=== PATIENT | male | born 1995 | race Caucasian/White ===

== ENCOUNTER 2017-03-23 17:58 | Inpatient (IN) | payer OTHER ==
[2017-03-23 18:24] VITALS: BMI 29.0
--- NOTE | 2017-03-23 18:35 | HP ---
COWS - Scale Resting Pulse: 0= [place] 80 or Below Sweatin= Chills/Flushing Restless Observation: 3= Extraneous Movement Pupil Size: 0= Normal to Room Light Bone or Joint Aches: 2= Severe Diffuse Aches Runny Nose/ Eye Tearin= Runny Nose/Eyes GI Upset > 30mins: 2= Nausea/Diarrhea Tremor Observation: 2= Slight Tremor Visible Yawning Observation: 0= None Anxiety or Irritability: 2=Irritable/Anxious Goose Flesh Skin: 0=Smooth Skin COWS Score: 14 Admission ROS S - HPI Chief Complaint: withdrawal sx reported last detox [facility]21[facility]16-12/25/[facility] Allergies/Adverse Reactions: Allergies Allergy/AdvReac Type Severity Reaction Status Date / Time No Known Allergies Allergy Verified 12/22/15 17:27 History of Present Illness: 21 years old male with long history of heroin nicotine dependence denies medical issue has anxiety is admitted to detox Exam Limitations: No Limitations - Ebola screening Have you traveled outside of the country in the last 21 days: No Have you had contact with anyone from an Ebola affected area: No Have you been sick,other than usual withdrawal symptoms: No Do you have a fever: No - Review of Systems Constitutional: Chills, Changes in sleep, Weight Stable EENT: reports: Blurred Vision (wear eye glasses left at home) Respiratory: reports: No Symptoms reported Cardiac: reports: No Symptoms Reported GI: reports: Nausea, Poor Fluid Intake, Abdominal cramping : reports: No Symptoms Reported Musculoskeletal: reports: Back Pain, Joint Pain, Muscle Pain, Neck Pain Integumentary: reports: No Symptoms Reported Neuro: reports: Tremors Endocrine: reports: No Symptoms Reported Hematology: reports: No Symptoms Reported Psychiatric: reports: Judgement Intact, Orientated x3, Anxious Other Systems: Reviewed and Negative Patient History - Patient Medical History Hx Anemia: No Hx Asthma: No Hx Chronic Obstructive Pulmonary Disease (COPD): No Hx Cancer: No Hx Cardiac Disorders: No Hx Congestive Heart Failure: No Hx Hypertension: No Hx Hypercholesterolemia: No Hx Pacemaker: No HX Cerebrovascular Accident: No Hx Seizures: No Hx Dementia: No Hx Diabetes: No Hx Gastrointestinal Disorders: No Hx Liver Disease: No Hx Genitourinary Disorders: No Hx Sexually Transmitted Disorders: No Hx Renal Disease (ESRD): No Hx Thyroid Disease: No Hx Human Immunodeficiency Virus (HIV): No Hx Hepatitis C: No Hx Depression: Yes Hx Suicide Attempt: No Hx Bipolar Disorder: No Hx Schizophrenia: No - Patient Surgical History Past Surgical History: No - PPD History Previous Implant?: Yes Documented Results: Negative w/o proof Implanted On Prior [facility] Admission?: No PPD to be Administered?: Yes - Smoking Cessation Smoking history: Current every day smoker Have you smoked in the past 12 months: Yes Aproximately how many cigarettes per day: 10 Cigars Per Day: 0 Hx Chewing Tobacco Use: No Initiated information on smoking cessation: Yes 'Breaking Loose' booklet given: 03/23/17 - Substance & Tx. History Hx Alcohol Use: No Hx Substance Use: Yes Substance Use Type: Heroin Hx Substance Use Treatment: Yes (12/21-12/25/16 [facility]) - Substances Abused oxycodon Route: Oral Frequency: Daily Amount used: 4-5 bags Age of first use: 18 Date of Last Use: 03/22/17 Family Disease History - Family Disease History Family Disease History: Diabetes: Grandparent (HTN,THYROID), Heart Disease: Grandparent, [place]: Grandparent, Father (THROAT) Admission Physical Exam S - Vital Signs Vital Signs: Vital Signs - 24 hr 03/23/17 18:22 Temperature 99.2 F Pulse Rate 73 Respiratory 18 Rate Blood Pressure 127/76 - Physical General Appearance: Yes: Appropriately Dressed, Mild Distress, Tremorous, Irritable, Sweating, Anxious HEENTM: Yes: Hearing grossly Normal, Normal ENT Inspection, Normocephalic, Normal Voice Respiratory: Yes: Chest Non-Tender, Lungs Clear, Normal Breath Sounds, No Respiratory Distress, No Accessory Muscle Use Neck: Yes: Supple, Trachea in good position Breast: Yes: Breasts Symetrical Cardiology: Yes: Regular Rhythm, Regular Rate, S1, S2 Abdominal: Yes: Non Tender, Soft Genitourinary: Yes: Within Normal Limits Back: Yes: Normal Inspection Musculoskeletal: Yes: full range of Motion, Gait Steady, Back pain, Muscle Pain Extremities: Yes: Normal Inspection, Normal Range of Motion, Non-Tender, Tremors Neurological: Yes: Fully Oriented, Alert, Motor Strength 5/5, Normal Response, Depressed Affect Integumentary: Yes: Warm Lymphatic: Yes: Within Normal Limits - Diagnostic (1) Opioid dependence with withdrawal Current Visit: Yes Status: Acute (2) Nicotine dependence Current Visit: Yes Status: Acute Qualifiers: Nicotine product type: cigarettes Substance use status: in withdrawal Qualified Code(s): F17.213 - Nicotine dependence, cigarettes, with withdrawal (3) Anxiety Current Visit: Yes Status: Suspected Cleared for Admission [facility] - Detox or Rehab [facility] Level of Care: Medically Managed Detox Regimen/Protocol: Methadone [facility] Breath Alcohol Content Breath Alcohol Content: 0 Urine Drug Screen - Results Drug Screen Negative: No Urine Drug Screen Results: THC-Marijuana, OXY-Oxycodone
[2017-03-23] MEDS ORDERED: METHADONE HCL 10 MG TABLET (FOR DETOX USE ONLY) PO ONE ×2 (18:56→23:00)
[2017-03-23] MEDS ORDERED: MAG HYDROX/AL HYDROX/SIMETH 30 ML UNIT-DOSE CUP PO PRN (18:56)
[2017-03-23] MEDS ORDERED: LOPERAMIDE HCL 2 MG CAPSULE PO PRN (18:56)
[2017-03-23] MEDS ORDERED: MAGNESIUM CITRATE 300 ML BOTTLE PO PRN (18:56)
[2017-03-23] MEDS ORDERED: MENTHOL/PHENOL 1 EACH UD MM PRN (18:56)
[2017-03-23] MEDS ORDERED: MAGNESIUM HYDROX 2400MG/30ML ORAL SUSPENSION 30 ML CUP PO PRN (18:56)
[2017-03-23] MEDS ORDERED: ACETAMINOPHEN 325 MG TABLET (FP) PO PRN (18:56)
[2017-03-23] MEDS ORDERED: P-EPHED 60MG/TRIPROLIDI 2.5MG TABLET PO PRN (18:56)
[2017-03-23] MEDS ORDERED: IBUPROFEN 400 MG TABLET (FP) PO PRN (18:56)
[2017-03-23] MEDS ORDERED: guaiFENesin/D-METHORPHAN HB 10 ML UNIT-DOSE CUPS PO PRN (18:56)
[2017-03-23] MEDS: diazePAM 5 MG TABLET PO PRN (19:45)
[2017-03-23 21:57] LABS: URINE APPEARANCE CLEAR; URINE BILIRUBIN NEGATIVE (NEGATIVE); URINE BLOOD NEGATIVE (NEGATIVE); URINE COLOR STRAW; URINE GLUCOSE (UA) NEGATIVE (NEGATIVE); URINE KETONE NEGATIVE (NEGATIVE); URINE LEUK ESTERASE NEGATIVE (NEGATIVE); URINE NITRITE NEGATIVE (NEGATIVE); URINE PROTEIN NEGATIVE (NEGATIVE); URINE UROBILINOGEN NEGATIVE E.U./dl (0.2-1.0)
[2017-03-23] MEDS: THIAMINE HCL 100 MG TABLET (FP) PO SCH (22:17)
[2017-03-23] MEDS: diphenhydrAMINE HCL 50 MG CAPSULE PO PRN (22:19)
--- NOTE | 2017-03-24 09:55 | PN ---
BHS COWS - Scale Resting Pulse: 0= [place] 80 or Below Sweatin=Flushed/Facial Moisture Restless Observation: 1= Difficult to Sit Still Pupil Size: 0= Normal to Room Light Bone or Joint Aches: 2= Severe Diffuse Aches Runny Nose/ Eye Tearin= Runny Nose/Eyes GI Upset > 30mins: 2= Nausea/Diarrhea Tremor Observation of Outstretched Hands: 2= Slight Tremor Visible Yawning Observation: 0= None Anxiety or Irritability: 2=Irritable/Anxious Goose Flesh Skin: 3=Piloerection COWS Score: 16 BHS Progress Note (SOAP) Subjective: Interrupted sleep, Stomach cramping, Body Aches, Fatigue, Diarrhea, Sweating. Objective: PT. A & O X 3, OBSERVED AMBULATING ON UNIT. NO ACUTE DISTRESS. 03/24/17 09:53 Vital Signs Temperature 96.9 F L 03/24/17 09:03 Pulse Rate 65 03/24/17 09:03 Respiratory Rate 18 03/24/17 09:03 Blood Pressure 108/64 03/24/17 09:03 O2 Sat by Pulse Oximetry (%) Laboratory Tests 03/23/17 21:15 Urine Color Straw Urine Appearance Clear Urine pH 9.0 H D Urine Protein Negative Urine Glucose (UA) Negative Urine Ketones Negative Urine Blood Negative Urine Nitrite Negative Urine Bilirubin Negative Urine Urobilinogen Negative Ur Leukocyte Esterase Negative UA RESULTS NOTED. OTHER LAB RESULTS PENDING. Assessment: 03/24/17 09:54 WITHDRAWAL SYMPTOMS. Plan: CONTINUE DETOX.
[2017-03-24] MEDS ORDERED: METHADONE HCL 10 MG TABLET (FOR DETOX USE ONLY) PO ONE (10:00)
[2017-03-24 10:02] LABS: MCH 29.4 pg (25.7-33.7); MCHC 33.9 g/dl (32.0-35.9); MEAN CELL VOLUME 86.8 fl (80-96); MEAN PLT VOLUME 8.2 fl (7.5-11.1); PLATELET COUNT 220 K/MM3 (134-434); RDW 13.2 % (11.9-15.9)
[2017-03-24 10:09] LABS: ALBUMIN 3.6 g/dl (3.4-5.0); ANION GAP 6 (8-16); BILIRUBIN,TOTAL 0.3 mg/dL (0.2-1.0); CALCIUM 9.2 mg/dL (8.5-10.1); CO2 30 mmol/L (21-32); CREATININE 0.8 mg/dL (0.7-1.3); GLUCOSE,RANDOM 99 mg/dL (74-106); SGOT/AST 11 U/L (15-37); SGPT/ALT 16 U/L (12-78); TOT PROT 6.6 g/dl (6.4-8.2)
[2017-03-24] MEDS: NICOTINE 14 MG/24 HOURS TOPICAL PATCH TD SCH (10:09)
[2017-03-24 10:10] LABS: ALK PHOS 69 U/L (45-117)
[2017-03-24] MEDS: PRENATAL VITAMINS W/ FOLIC ACID TABLET (FP) PO SCH (10:10)
[2017-03-24] MEDS: diazePAM 5 MG TABLET PO PRN ×3 (10:14→22:15)
--- NOTE | 2017-03-24 12:55 | CONSULT ---
[facility] Psychiatric Consult - Data Date of interview: 03/24/17 Admission source: [facility] Identifying data: Readmission to [facility] for this 21 y/o male seeking detoxification treatment for cannabis,opiate and benzodiazepine dependence (xanax).Patient is single without children,domiciled (lives with his mother),currently unemployed and supported by relatives. Substance Abuse History: Patient reports chronic use of oxycodone up to 60 mg/ day (purchased in the streets).Last use was on 03/22/17.Onset of abuse at age 18.He aknowledged starting the use of marijuana at age 16 (sporadically).Last use was in December 2016.Xanax abuse is reported to having been initiated at age 18 (15 dollars/day).Last use was " a while back ".Mr Orosco reports inconsistent use of alcohol (drinks beer at parties).Most recent use :03/17/17.Previously known to [facility].No history of rehabilitation care. Medical History: Benign.Patient reports good general health. Psychiatric History: Patient denies. Physical/Sexual Abuse/Trauma History: Patient denies. Additional Comment: Urine Drug Screen Results: positive for marijuana and oxycodone. Mental Status Exam - Mental Status Exam Alert and Oriented to: Time, Place, Person Cognitive Function: Good Patient Appearance: Well Groomed (overweight) Mood: Anxious, Apprehensive Affect: Normal Range Patient Behavior: Fatigued, Cooperative Speech Pattern: Clear Voice Loudness: Normal Thought Process: Intact, Goal Oriented Thought Disorder: Not Present Hallucinations: Denies Suicidal Ideation: Denies Homicidal Ideation: Denies Insight/Judgement: Fair Sleep: Fair Appetite: Good Muscle strength/Tone: Normal Gait/Station: Normal Psychiatric Findings - Problem List (Melvin 1, 2,3) (1) Opioid dependence with withdrawal Current Visit: Yes Status: Acute (2) Sedative, hypnotic or anxiolytic dependence with withdrawal, uncomplicated Current Visit: Yes Status: Acute (3) Nicotine dependence Current Visit: Yes Status: Acute Qualifiers: Nicotine product type: cigarettes Substance use status: in withdrawal Qualified Code(s): F17.213 - Nicotine dependence, cigarettes, with withdrawal (4) Drug-induced mood disorder Current Visit: Yes Status: Suspected - Initial Treatment Plan Initial Treatment Plan: Psychoeducation is provided in this session.Previous records revisited.[facility] report read and appreciated.Support given.Will monitor progress.
--- NOTE | 2017-03-24 17:17 | EKG ---
Test Reason : Blood Pressure : / mmHG Vent. Rate : 066 BPM Atrial Rate : 066 BPM P-R Int : 154 ms QRS Dur : 102 ms QT Int : 408 ms P-R-T Axes : 044 053 038 degrees QTc Int : 427 ms NORMAL SINUS RHYTHM WITH SINUS ARRHYTHMIA POSSIBLE LEFT ATRIAL ENLARGEMENT BORDERLINE ECG NO PREVIOUS ECGS AVAILABLE Confirmed by JULIAN ODELL MD ([id number]) on 03/24/2017 5:16:54 PM Referred By: Confirmed By:JULIAN ODELL MD
--- NOTE | 2017-03-24 17:17 | EKG ---
Test Reason : Blood Pressure : / mmHG Vent. Rate : 051 BPM Atrial Rate : 051 BPM P-R Int : 156 ms QRS Dur : 096 ms QT Int : 422 ms P-R-T Axes : 045 061 030 degrees QTc Int : 388 ms SINUS BRADYCARDIA WITH SINUS ARRHYTHMIA OTHERWISE NORMAL ECG WHEN COMPARED WITH ECG OF 23-MAR-2017 18:52, NO SIGNIFICANT CHANGE WAS FOUND Confirmed by JULIAN ODELL MD ([id number]) on 03/24/2017 5:16:40 PM Referred By: Confirmed By:JULIAN ODELL MD
[2017-03-24] MEDS: NICOTINE POLACRILEX 2 MG GUM BUC PRN (18:15)
[2017-03-24] MEDS: THIAMINE HCL 100 MG TABLET (FP) PO SCH (22:15)
[2017-03-24] MEDS: diphenhydrAMINE HCL 50 MG CAPSULE PO PRN (22:15)
[2017-03-25] MEDS ORDERED: METHADONE HCL 5 MG TABLET (FOR DETOX USE ONLY) PO ONE (10:00)
[2017-03-25] MEDS: NICOTINE 14 MG/24 HOURS TOPICAL PATCH TD SCH (10:10)
[2017-03-25] MEDS: PRENATAL VITAMINS W/ FOLIC ACID TABLET (FP) PO SCH (10:10)
--- NOTE | 2017-03-25 10:54 | PN ---
S COWS - Scale Resting Pulse: 0= [place] 80 or Below Sweatin=Flushed/Facial Moisture Restless Observation: 0= Sits Still Pupil Size: 0= Normal to Room Light Bone or Joint Aches: 2= Severe Diffuse Aches Runny Nose/ Eye Tearin= Nasal Congestion GI Upset > 30mins: 1= Stomach Cramp Tremor Observation of Outstretched Hands: 2= Slight Tremor Visible Yawning Observation: 2= >3x During Session Anxiety or Irritability: 2=Irritable/Anxious Goose Flesh Skin: 0=Smooth Skin COWS Score: 12 S Progress Note (SOAP) Subjective: Sweating, Fatigue, Interrupted sleep, Lower Back Ache. Objective: PT. A & O X 3, OBSERVED AMBULATING ON UNIT. NO ACUTE DISTRESS. PT. DENIES CHEST PAIN, DIZZINESS, AND SOB. 03/25/17 10:52 Vital Signs Temperature 97.0 F L 03/25/17 09:06 Pulse Rate 50 L 03/25/17 09:06 Respiratory Rate 18 03/25/17 09:06 Blood Pressure 103/61 03/25/17 09:06 O2 Sat by Pulse Oximetry (%) Laboratory Tests 03/23/17 03/24/17 03/24/17 21:15 06:30 06:30 WBC 7.0 RBC 4.88 Hgb 14.3 Hct 42.3 MCV 86.8 MCH 29.4 MCHC 33.9 RDW 13.2 Plt Count 220 MPV 8.2 Sodium 143 Potassium 4.4 Chloride 107 Carbon Dioxide 30 Anion Gap 6 L BUN 12 Creatinine 0.8 Creat Clearance w eGFR > 60 Random Glucose 99 Calcium 9.2 Total Bilirubin 0.3 D AST 11 L ALT 16 D Alkaline Phosphatase 69 Total Protein 6.6 Albumin 3.6 Urine Color Straw Urine Appearance Clear Urine pH 9.0 H D Ur Specific [place] 1.020 Urine Protein Negative Urine Glucose (UA) Negative Urine Ketones Negative Urine Blood Negative Urine Nitrite Negative Urine Bilirubin Negative Urine Urobilinogen Negative Ur Leukocyte Esterase Negative RPR Titer 03/24/17 06:30 WBC RBC Hgb Hct MCV MCH MCHC RDW Plt Count MPV Sodium Potassium Chloride Carbon Dioxide Anion Gap BUN Creatinine Creat Clearance w eGFR Random Glucose Calcium Total Bilirubin AST ALT Alkaline Phosphatase Total Protein Albumin Urine Color Urine Appearance Urine pH Ur Specific [place] Urine Protein Urine Glucose (UA) Urine Ketones Urine Blood Urine Nitrite Urine Bilirubin Urine Urobilinogen Ur Leukocyte Esterase RPR Titer Nonreactive LABS NOTED. Assessment: 03/25/17 10:53 WITHDRAWAL SYMPTOMS. Plan: CONTINUE DETOX.
[2017-03-25] MEDS: NICOTINE POLACRILEX 2 MG GUM BUC PRN ×2 (15:01→19:28)
[2017-03-25] MEDS: diazePAM 5 MG TABLET PO PRN ×2 (15:01→22:09)
[2017-03-25] MEDS: THIAMINE HCL 100 MG TABLET (FP) PO SCH (22:09)
[2017-03-25] MEDS: diphenhydrAMINE HCL 50 MG CAPSULE PO PRN (22:09)
[2017-03-26] MEDS ORDERED: METHADONE HCL 5 MG TABLET (FOR DETOX USE ONLY) PO ONE (10:00)
[2017-03-26] MEDS: PRENATAL VITAMINS W/ FOLIC ACID TABLET (FP) PO SCH (10:24)
[2017-03-26] MEDS: diazePAM 5 MG TABLET PO PRN ×3 (10:24→18:45)
[2017-03-26] MEDS: NICOTINE 14 MG/24 HOURS TOPICAL PATCH TD SCH (10:25)
--- NOTE | 2017-03-26 11:51 | PN ---
BHS Progress Note (SOAP) Subjective: Tremors, Diarrhea, Anxious, Sweating, Stomach Cramping, Interrupted sleep. Objective: PT. A & O X 3, OBSERVED AMBULATING ON UNIT. NO ACUTE DISTRESS. 03/26/17 11:50 Vital Signs Temperature 96.7 F L 03/26/17 09:43 Pulse Rate 70 03/26/17 09:43 Respiratory Rate 18 03/26/17 09:43 Blood Pressure 104/61 03/26/17 09:43 O2 Sat by Pulse Oximetry (%) Laboratory Tests 03/23/17 03/24/17 03/24/17 21:15 06:30 06:30 WBC 7.0 RBC 4.88 Hgb 14.3 Hct 42.3 MCV 86.8 MCH 29.4 MCHC 33.9 RDW 13.2 Plt Count 220 MPV 8.2 Sodium 143 Potassium 4.4 Chloride 107 Carbon Dioxide 30 Anion Gap 6 L BUN 12 Creatinine 0.8 Creat Clearance w eGFR > 60 Random Glucose 99 Calcium 9.2 Total Bilirubin 0.3 D AST 11 L ALT 16 D Alkaline Phosphatase 69 Total Protein 6.6 Albumin 3.6 Urine Color Straw Urine Appearance Clear Urine pH 9.0 H D Ur Specific [place] 1.020 Urine Protein Negative Urine Glucose (UA) Negative Urine Ketones Negative Urine Blood Negative Urine Nitrite Negative Urine Bilirubin Negative Urine Urobilinogen Negative Ur Leukocyte Esterase Negative RPR Titer 03/24/17 06:30 WBC RBC Hgb Hct MCV MCH MCHC RDW Plt Count MPV Sodium Potassium Chloride Carbon Dioxide Anion Gap BUN Creatinine Creat Clearance w eGFR Random Glucose Calcium Total Bilirubin AST ALT Alkaline Phosphatase Total Protein Albumin Urine Color Urine Appearance Urine pH Ur Specific [place] Urine Protein Urine Glucose (UA) Urine Ketones Urine Blood Urine Nitrite Urine Bilirubin Urine Urobilinogen Ur Leukocyte Esterase RPR Titer Nonreactive LABS NOTED. Assessment: 03/26/17 11:50 WITHDRAWAL SYMPTOMS. Plan: CONTINUE DETOX.
[2017-03-26] MEDS: THIAMINE HCL 100 MG TABLET (FP) PO SCH (22:14)
[2017-03-26] MEDS: diphenhydrAMINE HCL 50 MG CAPSULE PO PRN (22:15)
[2017-03-27] MEDS ORDERED: METHADONE HCL 10 MG TABLET (FOR DETOX USE ONLY) PO ONE (10:00)
[2017-03-27] MEDS: PRENATAL VITAMINS W/ FOLIC ACID TABLET (FP) PO SCH (10:14)
[2017-03-27] MEDS: NICOTINE 14 MG/24 HOURS TOPICAL PATCH TD SCH (10:15)
--- NOTE | 2017-03-27 11:01 | PN ---
BHS Progress Note (SOAP) Subjective: Interrupted Sleep, Fatigue, Anxious, Sweating. Objective: PT. A & O X 3. NO ACUTE DISTRESS. 03/27/17 11:00 Vital Signs Temperature 97.4 F L 03/27/17 10:29 Pulse Rate 76 03/27/17 10:29 Respiratory Rate 18 03/27/17 10:29 Blood Pressure 105/60 03/27/17 10:29 O2 Sat by Pulse Oximetry (%) Laboratory Tests 03/23/17 03/24/17 03/24/17 21:15 06:30 06:30 WBC 7.0 RBC 4.88 Hgb 14.3 Hct 42.3 MCV 86.8 MCH 29.4 MCHC 33.9 RDW 13.2 Plt Count 220 MPV 8.2 Sodium 143 Potassium 4.4 Chloride 107 Carbon Dioxide 30 Anion Gap 6 L BUN 12 Creatinine 0.8 Creat Clearance w eGFR > 60 Random Glucose 99 Calcium 9.2 Total Bilirubin 0.3 D AST 11 L ALT 16 D Alkaline Phosphatase 69 Total Protein 6.6 Albumin 3.6 Urine Color Straw Urine Appearance Clear Urine pH 9.0 H D Ur Specific [place] 1.020 Urine Protein Negative Urine Glucose (UA) Negative Urine Ketones Negative Urine Blood Negative Urine Nitrite Negative Urine Bilirubin Negative Urine Urobilinogen Negative Ur Leukocyte Esterase Negative RPR Titer 03/24/17 06:30 WBC RBC Hgb Hct MCV MCH MCHC RDW Plt Count MPV Sodium Potassium Chloride Carbon Dioxide Anion Gap BUN Creatinine Creat Clearance w eGFR Random Glucose Calcium Total Bilirubin AST ALT Alkaline Phosphatase Total Protein Albumin Urine Color Urine Appearance Urine pH Ur Specific [place] Urine Protein Urine Glucose (UA) Urine Ketones Urine Blood Urine Nitrite Urine Bilirubin Urine Urobilinogen Ur Leukocyte Esterase RPR Titer Nonreactive LABS NOTED. Assessment: 03/27/17 11:00 WITHDRAWAL SYMPTOMS. Plan: CONTINUE DETOX.
[2017-03-27] MEDS: THIAMINE HCL 100 MG TABLET (FP) PO SCH (22:18)
[2017-03-27] MEDS: diphenhydrAMINE HCL 50 MG CAPSULE PO PRN (22:18)
[2017-03-27] MEDS: NICOTINE POLACRILEX 2 MG GUM BUC PRN (22:21)
[2017-03-28] MEDS ORDERED: METHADONE HCL 5 MG TABLET (FOR DETOX USE ONLY) PO ONE (06:00)
[2017-03-28 06:28] VITALS: TEMP 97.5
[2017-03-28 09:15] VITALS: BP 124/63; PULSE 81
--- NOTE | 2017-03-28 11:42 | DS ---
[facility] Detox Discharge Summary Admission Date: 03/23/17 Discharge Date: 03/28/17 - History Present History: Opioid Dependence Additional Comments: PATIENT TO GO HOME AT THIS TIME AND WILL RETURN ON 03/30/2017 FOR ADMISSION TO [facility]. Pertinent Past History: Depression / Anxiety. - Physical Exam Results Vital Signs: Vital Signs Temperature 97.5 F L 03/28/17 09:15 Pulse Rate 81 03/28/17 09:15 Respiratory Rate 18 03/28/17 09:15 Blood Pressure 124/63 03/28/17 09:15 O2 Sat by Pulse Oximetry (%) Pertinent Admission Physical Exam Findings: WITHDRAWAL SYMPTOMS. Laboratory Tests 03/23/17 03/24/17 03/24/17 21:15 06:30 06:30 WBC 7.0 RBC 4.88 Hgb 14.3 Hct 42.3 MCV 86.8 MCH 29.4 MCHC 33.9 RDW 13.2 Plt Count 220 MPV 8.2 Sodium 143 Potassium 4.4 Chloride 107 Carbon Dioxide 30 Anion Gap 6 L BUN 12 Creatinine 0.8 Creat Clearance w eGFR > 60 Random Glucose 99 Calcium 9.2 Total Bilirubin 0.3 D AST 11 L ALT 16 D Alkaline Phosphatase 69 Total Protein 6.6 Albumin 3.6 Urine Color Straw Urine Appearance Clear Urine pH 9.0 H D Ur Specific [place] 1.020 Urine Protein Negative Urine Glucose (UA) Negative Urine Ketones Negative Urine Blood Negative Urine Nitrite Negative Urine Bilirubin Negative Urine Urobilinogen Negative Ur Leukocyte Esterase Negative RPR Titer 03/24/17 06:30 WBC RBC Hgb Hct MCV MCH MCHC RDW Plt Count MPV Sodium Potassium Chloride Carbon Dioxide Anion Gap BUN Creatinine Creat Clearance w eGFR Random Glucose Calcium Total Bilirubin AST ALT Alkaline Phosphatase Total Protein Albumin Urine Color Urine Appearance Urine pH Ur Specific [place] Urine Protein Urine Glucose (UA) Urine Ketones Urine Blood Urine Nitrite Urine Bilirubin Urine Urobilinogen Ur Leukocyte Esterase RPR Titer Nonreactive LABS NOTED. - Treatment Hospital Course: Detox Protocol Followed, Detoxed Safely, Responded well, Discharged Condition Good, Rehab Referral Accepted Patient has Accepted a Rehab Referral to: YES - [facility]. SEE COMMENTS SECTION ABOVE. - Medication Discharge Medications: Ambulatory Orders NK [No Known Home Medication] 12/22/15 - Diagnosis (1) Nicotine dependence Status: Chronic Qualifiers: Nicotine product type: cigarettes Substance use status: uncomplicated Qualified Code(s): F17.210 - Nicotine dependence, cigarettes, uncomplicated (2) Opioid dependence with withdrawal Status: Acute (3) Anxiety Status: Suspected (4) Sedative, hypnotic or anxiolytic dependence with withdrawal, uncomplicated Status: Acute (5) Drug-induced mood disorder Status: Suspected - AMA Did Patient Leave Against Medical Advice: No
== END 2017-03-28 09:14 | disposition home or self-care (01) | DRG 773 ==
LOC: YASAS 17:58 → Y3N 18:54
PROVIDERS: ADMIT Internal Medicine; ATTEND Internal Medicine
PROC: HZ2ZZZZ Detoxification Services for Substance Abuse Treatment (ICD-10-PCS; principal; 2017-03-28)
DX: F11.23 Opioid dependence with withdrawal (principal); F13.230 Sedative, hypnotic or anxiolytic dependence with withdrawal, uncomplicated; F17.210 Nicotine dependence, cigarettes, uncomplicated; F19.24 Other psychoactive substance dependence with psychoactive substance-induced mood disorder; F41.9 Anxiety disorder, unspecified
CPT/HCPCS: 36415; 80053; 81003; 85027; 86593; 93005; 93010

== ENCOUNTER 2017-03-30 11:05 | Inpatient (IN) | payer OTHER ==
[2017-03-30 12:49] VITALS: BMI 29.5
--- NOTE | 2017-03-30 16:42 | HP ---
Admission [facility] Chief Complaint: REHAB TX FOR OPIOID DEPENDENCE Allergies/Adverse Reactions: Allergies Allergy/AdvReac Type Severity Reaction Status Date / Time No Known Allergies Allergy Verified 03/30/17 16:22 History of Present Illness: 21 Y/O MALE WITH A HX OF OXYCODONE DEPENDENCE SEEKING DETOX [place] Exam Limitations: No Limitations - Ebola screening Have you traveled outside of the country in the last 21 days: No Have you had contact with anyone from an Ebola affected area: No Have you been sick,other than usual withdrawal symptoms: No - Review of Systems Constitutional: Chills, Loss of Appetite, Night Sweats, Changes in sleep EENT: reports: Nose Congestion, Dental Problems (CAVITITIES IN THE PAST) Respiratory: reports: No Symptoms reported Cardiac: reports: Lightheadedness GI: reports: Constipated (X 2 DAYS), Diarrhea, Nausea, Poor Appetite, Poor Fluid Intake, Vomiting, Abdominal cramping : reports: No Symptoms Reported Musculoskeletal: reports: Back Pain, Joint Pain, Muscle Pain Integumentary: reports: No Symptoms Reported Neuro: reports: Headache, Numbness, Tingling, Tremors (DUE TO ANXIETY) Endocrine: reports: No Symptoms Reported Hematology: reports: No Symptoms Reported Psychiatric: reports: Orientated x3, Anxious Other Systems: Reviewed and Negative Patient History - Patient Medical History Hx Anemia: No Hx Asthma: No Hx Chronic Obstructive Pulmonary Disease (COPD): No Hx Cancer: No Hx Cardiac Disorders: No Hx Congestive Heart Failure: No Hx Hypertension: No Hx Hypercholesterolemia: No Hx Pacemaker: No HX Cerebrovascular Accident: No Hx Seizures: No Hx Dementia: No Hx Diabetes: No Hx Gastrointestinal Disorders: No Hx Liver Disease: No Hx Genitourinary Disorders: No Hx Sexually Transmitted Disorders: No (NEGATIVE HX) Hx Renal Disease (ESRD): No Hx Thyroid Disease: No Hx Human Immunodeficiency Virus (HIV): No (NEGATIVE HX) Hx Hepatitis C: No (NEGATIVE) Hx Depression: No Hx Suicide Attempt: No (DENIES) Hx Bipolar Disorder: No Hx Schizophrenia: No - Patient Surgical History Past Surgical History: No Hx Neurologic Surgery: No Hx Cataract Extraction: No Hx Cardiac Surgery: No Hx Lung Surgery: No Hx Breast Surgery: No Hx Breast Biopsy: No Hx Abdominal Surgery: No Hx Appendectomy: No Hx Cholecystectomy: No Hx Genitourinary Surgery: No Hx Orthopedic Surgery: No Anesthesia Reaction: No - PPD History Previous Implant?: Yes Documented Results: Negative w/proof Implanted On Prior [facility] Admission?: Yes Date: 03/25/17 Results: 0 MM - Smoking Cessation Smoking history: Current every day smoker Have you smoked in the past 12 months: Yes Aproximately how many cigarettes per day: 10 Cigars Per Day: 0 Hx Chewing Tobacco Use: No Initiated information on smoking cessation: Yes 'Breaking Loose' booklet given: 03/30/17 - Substances Abused OXYCODONE Route: Oral Frequency: Daily Amount used: 4- 30 MG PILLS Age of first use: 17 Date of Last Use: 04/01/17 Family Disease History - Family Disease History Family Disease History: Diabetes: Grandparent (HTN,THYROID), Heart Disease: Grandparent, [place]: Grandparent, Father (THROAT) Admission Physical Exam [facility] - Vital Signs Vital Signs: Vital Signs - 24 hr 03/30/17 12:46 Temperature 98.6 F Pulse Rate 110 H Respiratory 18 Rate Blood Pressure 125/86 - Physical General Appearance: Yes: No Apparent Distress, Anxious HEENTM: Yes: EOMI, Normocephalic, BRANDIE, Pharynx Normal Respiratory: Yes: Chest Non-Tender, Lungs Clear, Normal Breath Sounds, No Respiratory Distress Neck: Yes: Supple, Trachea in good position Breast: Yes: Breast Exam Deferred Cardiology: Yes: Regular Rhythm, Regular Rate, S1, S2 Abdominal: Yes: Normal Bowel Sounds, Non Tender, Soft Genitourinary: Yes: Other (N/C) Back: Yes: Within Normal Limits Musculoskeletal: Yes: full range of Motion, Gait Steady Extremities: Yes: Normal Range of Motion, Non-Tender Neurological: Yes: marketing operations coordinator II-XII NML intact, Fully Oriented, Alert, Motor Strength 5/5 Integumentary: Yes: Dry, Warm Lymphatic: Yes: Within Normal Limits - Diagnostic (1) Opioid dependence with withdrawal Status: Chronic (2) Nicotine dependence Status: Chronic Qualifiers: Nicotine product type: cigarettes Substance use status: uncomplicated Qualified Code(s): F17.210 - Nicotine dependence, cigarettes, uncomplicated Cleared for Admission [facility] - Detox or Rehab Claeared for Rehab Admission: Yes [facility] Breath Alcohol Content Breath Alcohol Content: 0 Urine Drug Screen - Results Drug Screen Negative: No Urine Drug Screen Results: BZO-Benzodiazepines, MTD-Methadone
[2017-03-30] MEDS ORDERED: MAGNESIUM CITRATE 300 ML BOTTLE PO PRN (20:22)
[2017-03-30] MEDS ORDERED: guaiFENesin/D-METHORPHAN HB 10 ML UNIT-DOSE CUPS PO PRN (20:22)
[2017-03-30] MEDS ORDERED: LOPERAMIDE HCL 2 MG CAPSULE PO PRN (20:22)
[2017-03-30] MEDS ORDERED: MAG HYDROX/AL HYDROX/SIMETH 30 ML UNIT-DOSE CUP PO PRN (20:22)
[2017-03-30] MEDS ORDERED: MENTHOL/PHENOL 1 EACH UD MM PRN (20:22)
[2017-03-30] MEDS ORDERED: NICOTINE 21 MG/24 HOURS TOPICAL PATCH TD PRN (20:22)
[2017-03-30] MEDS ORDERED: P-EPHED 60MG/TRIPROLIDI 2.5MG TABLET PO PRN (20:22)
[2017-03-30] MEDS ORDERED: ACETAMINOPHEN 325 MG TABLET (FP) PO PRN (20:22)
[2017-03-30] MEDS ORDERED: MAGNESIUM HYDROX 2400MG/30ML ORAL SUSPENSION 30 ML CUP PO PRN (20:22)
[2017-03-30] MEDS ORDERED: NICOTINE POLACRILEX 4 MG GUM BUC PRN (20:22)
[2017-03-30] MEDS: IBUPROFEN 400 MG TABLET (FP) PO PRN (20:48)
[2017-03-30] MEDS: CYCLOBENZAPRINE HCL 10 MG TABLET (FP) PO PRN (20:48)
[2017-03-30] MEDS: hydrOXYzine PAMOATE 50 MG CAPSULE (FP) PO PRN (20:48)
[2017-03-30] MEDS: THIAMINE HCL 100 MG TABLET (FP) PO SCH (21:31)
[2017-03-31] MEDS: PRENATAL VITAMINS W/ FOLIC ACID TABLET (FP) PO SCH (09:39)
[2017-03-31] MEDS: CYCLOBENZAPRINE HCL 10 MG TABLET (FP) PO PRN (09:40)
[2017-03-31] MEDS: IBUPROFEN 400 MG TABLET (FP) PO PRN (09:40)
--- NOTE | 2017-03-31 10:49 | HP ---
Psychiatrist Admission - Data Date of interview: 03/31/17 Admission source: 3N Identifying data: THis is the first N inpatient rehabilitation admission to for this 21 year old male who is single unemployed and domiciled, residing with his mother in [place]. Medical History: Reports good phsyical health. Smokes cigarettes 1 PPD. Psychiatric History: Reports no psychiatric treatment, seeen by while in detox, however reports he has been feeling very anxious and having panic attacks, with SOB, palpitations and flashing, unable to sleep and having body aches. States he takes xanax to relieve his anxiety. Physical/Sexual Abuse/Trauma History: Patient denies history of sexual, physical and verbal abuse. Additional Comment: HS graduate, 1,5 years in college. Vital Signs: Vital Signs - 24 hr 03/30/17 03/30/17 03/31/17 12:46 18:30 00:30 Temperature 98.6 F 98.7 F Pulse Rate 110 H 96 H Respiratory 18 18 16 Rate Blood Pressure 125/86 118/72 03/31/17 03/31/17 03:30 06:47 Temperature 98.7 F Pulse Rate 82 Respiratory 16 18 Rate Blood Pressure 109/81 Allergies/Adverse Reactions: Allergies Allergy/AdvReac Type Severity Reaction Status Date / Time No Known Allergies Allergy Verified 03/30/17 16:22 Date of last physical exam: 03/24/17 Concur with the findings of this exam: Yes - Substance Abuse/Tx History Hx Alcohol Use: No Substance Use Type: Marijuana (once a week), Opiates (oxycodone 30 mg 4-8 a day , for the past 4 years), Tranquilizers (xanax 2-3 times a week) Hx Substance Use Treatment: Yes (detox x 2) - Admission Criteria Previous failed treatment: Yes Poor recovery environment: Yes Comorbidities: Yes Lacks judgement: Yes Mental Status Exam - Mental Status Exam Alert and Oriented to: Time, Place, Person Cognitive Function: Good Patient Appearance: Well Groomed Mood: Anxious Affect: Appropriate, Mood Congruent Patient Behavior: Appropriate, Cooperative Speech Pattern: Clear, Appropriate Voice Loudness: Normal Thought Process: Intact Thought Disorder: Not Present Hallucinations: Denies Suicidal Ideation: Denies Homicidal Ideation: Denies Insight/Judgement: Fair Sleep: Poorly, Difficulty falling asleep Appetite: Fair Muscle strength/Tone: Normal Gait/Station: Normal Psychiatric Findings - Problem List ([place] 1, 2,3) (1) Nicotine dependence Current Visit: Yes Status: Chronic Qualifiers: Nicotine product type: cigarettes Substance use status: uncomplicated Qualified Code(s): F17.210 - Nicotine dependence, cigarettes, uncomplicated (2) Opioid dependence Current Visit: Yes Status: Acute (3) FELIPE (generalized anxiety disorder) Current Visit: Yes Status: Acute (4) Opioid-induced sleep disorder Current Visit: Yes Status: Acute (5) Sedative hypnotic or anxiolytic dependence Current Visit: Yes Status: Acute - Initial Treatment Plan Initial Treatment Plan: Discussed indications/properties of Gabapentin 100 mg po tid and Remeron 15 mg po hs with the patient, he agreed to start treatment, will add meds and monitor progress/response.
[2017-03-31] MEDS: GABAPENTIN 100 MG CAPSULE (FP) PO SCH ×2 (14:13→21:56)
--- NOTE | 2017-03-31 17:06 | EKG ---
Test Reason : Blood Pressure : / mmHG Vent. Rate : 078 BPM Atrial Rate : 078 BPM P-R Int : 156 ms QRS Dur : 096 ms QT Int : 358 ms P-R-T Axes : 062 065 045 degrees QTc Int : 408 ms NORMAL SINUS RHYTHM WITH SINUS ARRHYTHMIA EARLY REPOLARIZATION NORMAL ECG WHEN COMPARED WITH ECG OF 24-MAR-2017 08:09, VENT. RATE HAS INCREASED BY 27 BPM Confirmed by JULIAN ODELL MD ([id number]) on 03/31/2017 5:06:42 PM Referred By: Confirmed By:JULIAN ODELL MD
[2017-03-31] MEDS: hydrOXYzine PAMOATE 50 MG CAPSULE (FP) PO PRN (20:05)
[2017-03-31] MEDS: THIAMINE HCL 100 MG TABLET (FP) PO SCH (21:56)
[2017-03-31] MEDS: MIRTAZAPINE 15 MG TABLET (FP) PO SCH (21:56)
[2017-04-01] MEDS: GABAPENTIN 100 MG CAPSULE (FP) PO SCH ×3 (06:17→21:36)
[2017-04-01] MEDS: hydrOXYzine PAMOATE 50 MG CAPSULE (FP) PO PRN ×2 (09:50→21:37)
[2017-04-01] MEDS: PRENATAL VITAMINS W/ FOLIC ACID TABLET (FP) PO SCH (09:50)
[2017-04-01] MEDS: CYCLOBENZAPRINE HCL 10 MG TABLET (FP) PO PRN ×2 (14:21→21:37)
[2017-04-01 17:36] LABS: URINE APPEARANCE CLEAR; URINE BILIRUBIN NEGATIVE (NEGATIVE); URINE BLOOD NEGATIVE (NEGATIVE); URINE COLOR STRAW; URINE GLUCOSE (UA) NEGATIVE (NEGATIVE); URINE KETONE NEGATIVE (NEGATIVE); URINE LEUK ESTERASE NEGATIVE (NEGATIVE); URINE NITRITE NEGATIVE (NEGATIVE); URINE PROTEIN NEGATIVE (NEGATIVE); URINE UROBILINOGEN NEGATIVE mg/dL (0.2-1.0)
[2017-04-01] MEDS: THIAMINE HCL 100 MG TABLET (FP) PO SCH (21:36)
[2017-04-01] MEDS: MIRTAZAPINE 15 MG TABLET (FP) PO SCH (21:36)
[2017-04-02] MEDS: GABAPENTIN 100 MG CAPSULE (FP) PO SCH ×3 (06:21→21:54)
[2017-04-02] MEDS: hydrOXYzine PAMOATE 50 MG CAPSULE (FP) PO PRN ×2 (09:48→21:54)
[2017-04-02] MEDS: PRENATAL VITAMINS W/ FOLIC ACID TABLET (FP) PO SCH (09:48)
[2017-04-02] MEDS: CYCLOBENZAPRINE HCL 10 MG TABLET (FP) PO PRN ×2 (09:48→21:54)
[2017-04-02] MEDS: THIAMINE HCL 100 MG TABLET (FP) PO SCH (21:52)
[2017-04-02] MEDS: MIRTAZAPINE 15 MG TABLET (FP) PO SCH (21:54)
[2017-04-03] MEDS: diphenhydrAMINE HCL 50 MG CAPSULE PO PRN (00:54)
[2017-04-03] MEDS: CYCLOBENZAPRINE HCL 10 MG TABLET (FP) PO PRN ×3 (06:28→21:15)
[2017-04-03] MEDS: hydrOXYzine PAMOATE 50 MG CAPSULE (FP) PO PRN ×2 (06:29→21:15)
[2017-04-03] MEDS: GABAPENTIN 100 MG CAPSULE (FP) PO SCH ×3 (06:29→21:14)
[2017-04-03] MEDS: PRENATAL VITAMINS W/ FOLIC ACID TABLET (FP) PO SCH (10:04)
[2017-04-03] MEDS: MIRTAZAPINE 15 MG TABLET (FP) PO SCH (21:14)
[2017-04-03] MEDS: THIAMINE HCL 100 MG TABLET (FP) PO SCH (21:14)
[2017-04-04] MEDS: diphenhydrAMINE HCL 50 MG CAPSULE PO PRN ×2 (01:00→23:05)
[2017-04-04] MEDS: GABAPENTIN 100 MG CAPSULE (FP) PO SCH ×3 (06:39→21:22)
[2017-04-04] MEDS: PRENATAL VITAMINS W/ FOLIC ACID TABLET (FP) PO SCH (10:04)
[2017-04-04] MEDS: hydrOXYzine PAMOATE 50 MG CAPSULE (FP) PO PRN (10:04)
[2017-04-04] MEDS: CYCLOBENZAPRINE HCL 10 MG TABLET (FP) PO PRN (21:22)
[2017-04-04] MEDS: MIRTAZAPINE 15 MG TABLET (FP) PO SCH (21:22)
[2017-04-04] MEDS: THIAMINE HCL 100 MG TABLET (FP) PO SCH (21:22)
[2017-04-05] MEDS: GABAPENTIN 100 MG CAPSULE (FP) PO SCH ×3 (06:40→21:23)
[2017-04-05] MEDS: PRENATAL VITAMINS W/ FOLIC ACID TABLET (FP) PO SCH (09:58)
[2017-04-05] MEDS: hydrOXYzine PAMOATE 50 MG CAPSULE (FP) PO PRN (09:58)
[2017-04-05] MEDS: CYCLOBENZAPRINE HCL 10 MG TABLET (FP) PO PRN (14:26)
[2017-04-05] MEDS: MIRTAZAPINE 15 MG TABLET (FP) PO SCH (21:23)
[2017-04-05] MEDS: THIAMINE HCL 100 MG TABLET (FP) PO SCH (21:23)
[2017-04-05] MEDS: diphenhydrAMINE HCL 50 MG CAPSULE PO PRN (23:37)
[2017-04-06] MEDS: GABAPENTIN 100 MG CAPSULE (FP) PO SCH (06:17)
[2017-04-06 06:37] VITALS: BP 107/75; PULSE 81; TEMP 97.8
[2017-04-06] MEDS: PRENATAL VITAMINS W/ FOLIC ACID TABLET (FP) PO SCH (09:59)
--- NOTE | 2017-04-06 12:04 | PN ---
Psychiatric Progress Note Vital Signs: Vital Signs Period Temp Pulse Resp BP Sys/Martinez Pulse Ox Last 24 Hr 97.8 F 81 18-18 107/75 Date of Session: 04/06/17 Chief Complaint:: discharge visit HPI: Patient is addressing opioid, sedative-hypnotic, nicotine dependence comorbid FELIPE, opioid induced sleep disorder. ROS: WNL Current Medications: Active Medications Generic Name Dose Route Start Last Admin Trade Name Freq PRN Reason Stop Dose Admin Acetaminophen 650 mg 03/30/17 20:22 Tylenol - PO Q4H PRN PAIN Al Hydroxide/Mg Hydroxide 30 ml 03/30/17 20:22 Mylanta Oral Suspension - PO Q6H PRN DYSPEPSIA Cyclobenzaprine HCl 10 mg 03/30/17 20:25 04/05/17 14:26 Flexeril - PO 10 mg TID PRN Administration MUSCLE SPASMS Diphenhydramine HCl 50 mg 03/30/17 20:22 04/05/17 23:37 Benadryl - PO 50 mg HSMR1 PRN Administration INSOMNIA Eucalyptus/Menthol/Phenol/Sorbitol 1 each 03/30/17 20:22 Cepastat Lozenge - MM Q4H PRN SORE THROAT Gabapentin 100 mg 03/31/17 14:00 04/06/17 06:17 Neurontin - PO 100 mg TID CYRUS Administration Guaifenesin 10 ml 03/30/17 20:22 Robitussin Dm - PO Q6H PRN COUGH Hydroxyzine Pamoate 50 mg 03/30/17 20:22 04/05/17 09:58 Vistaril - PO 50 mg Q4H PRN Administration AGITATION Ibuprofen 400 mg 03/30/17 20:22 03/31/17 09:40 Motrin - PO 400 mg Q6H PRN Administration SEVERE PAIN Loperamide HCl 4 mg 03/30/17 20:22 Imodium - PO Q6H PRN DIARRHEA Magnesium Citrate 300 ml 03/30/17 20:22 Citroma - PO Q48H PRN CONSTIPATION Magnesium Hydroxide 30 ml 03/30/17 20:22 Milk Of Magnesia - PO DAILY PRN CONSTIPATION Mirtazapine 15 mg 03/31/17 22:00 04/05/17 21:23 Remeron - PO 15 mg HS CYRUS Administration Nicotine 21 mg 03/30/17 20:22 04/02/17 14:32 Nicoderm Patch - TD 21 mg DAILY PRN Administration WITHDRAWAL(CONT SUBST) Nicotine Polacrilex 4 mg 03/30/17 20:22 04/01/17 15:18 Nicorette Gum - BUC 4 mg Q2H PRN Administration NICOTINE REPLACEMENT RX Multivit/Folic Acid/Iron 1 tab 03/31/17 10:00 04/06/17 09:59 Vitamins (Sjr) - PO 1 tab DAILY CYRUS Administration Pseudoephedrine/Triprolidine 1 combo 03/30/17 20:22 Actifed - PO TID PRN NASAL CONGESTION Thiamine HCl 100 mg 03/30/17 22:00 04/05/17 21:23 Vitamin B1 - PO 100 mg HS CYRUS Administration Current Side Effect: No Lab tests ordered: No Lab tests reviewed: Yes Provider note:: Patient requested to be discharged today, he has completed 7 days, will continue to address his issues at [facility] outpatient treatment program. Patient gained insights into importance of maintaing abstinence and utilizing all supports available to prevent relapses. Patient reports that he does not feel that Remeron and Gabapentin were effective but Vistaril, he declined sripts for Remeron and Gabapentin but willing to continue Vistaril, Scripts for 30 days provided, patient was encouraged to continue abstinence and to follow his aftercare plans.Stable for discharge today. Total face to face time:: 35 Mental Status Exam - Mental Status Exam Alert and Oriented to: Time, Place, Person Cognitive Function: Good Patient Appearance: Well Groomed Mood: Hopeful Affect: Appropriate, Mood Congruent Patient Behavior: Appropriate, Cooperative Speech Pattern: Clear, Appropriate Voice Loudness: Normal Thought Process: Intact, Goal Oriented Thought Disorder: Not Present Hallucinations: Denies Suicidal Ideation: Denies Homicidal Ideation: Denies Insight/Judgement: Fair Sleep: Well Appetite: Good Muscle strength/Tone: Normal Gait/Station: Normal Psychiatric Treatment Plan - Problem List (1) Nicotine dependence Qualifiers: Nicotine product type: cigarettes Substance use status: uncomplicated Qualified Code(s): F17.210 - Nicotine dependence, cigarettes, uncomplicated
== END 2017-04-06 12:05 | disposition home or self-care (01) | DRG 772 ==
LOC: YASAS 11:05 → Y5N 16:51
PROVIDERS: ADMIT Psychiatry & Neurology Psychiatry; ATTEND Psychiatry & Neurology Psychiatry
PROC: HZ42ZZZ Group Counseling for Substance Abuse Treatment, Cognitive-Behavioral (ICD-10-PCS; principal; 2017-04-06)
DX: F11.23 Opioid dependence with withdrawal (principal); F13.230 Sedative, hypnotic or anxiolytic dependence with withdrawal, uncomplicated; F17.210 Nicotine dependence, cigarettes, uncomplicated; F19.282 Other psychoactive substance dependence with psychoactive substance-induced sleep disorder; F19.24 Other psychoactive substance dependence with psychoactive substance-induced mood disorder; F41.1 Generalized anxiety disorder
CPT/HCPCS: 81003; 93005; 93010

== ENCOUNTER 2018-02-09 12:23 | Inpatient (IN) | payer OTHER ==
[2018-02-09 15:05] VITALS: BMI 30.1
--- NOTE | 2018-02-09 16:47 | HP ---
COWS - Scale Resting Pulse: 1= MD 81-100 Sweatin=Flushed/Facial Moisture Restless Observation: 1= Difficult to Sit Still Pupil Size: 0= Normal to Room Light Bone or Joint Aches: 2= Severe Diffuse Aches Runny Nose/ Eye Tearin= Runny Nose/Eyes GI Upset > 30mins: 2= Nausea/Diarrhea Tremor Observation: 2= Slight Tremor Visible Yawning Observation: 1= 1-2x During Session Anxiety or Irritability: 2=Irritable/Anxious Goose Flesh Skin: 0=Smooth Skin COWS Score: 15 Admission ROS S - HPI Chief Complaint: I was here before and I know I can get the help that I need. Allergies/Adverse Reactions: Allergies Allergy/AdvReac Type Severity Reaction Status Date / Time No Known Allergies Allergy Verified 02/09/18 15:26 History of Present Illness: pt is 22yr old male with a history of opioid dependence seeking detox for treatment. Exam Limitations: No Limitations - Ebola screening Have you traveled outside of the country in the last 21 days: No Have you had contact with anyone from an Ebola affected area: No Have you been sick,other than usual withdrawal symptoms: No Do you have a fever: No - Review of Systems Constitutional: Chills, Diaphoresis, Night Sweats, Changes in sleep, Weakness EENT: reports: Tearing, Nose Congestion Respiratory: reports: No Symptoms reported GI: reports: Constipated, Poor Appetite, Poor Fluid Intake : reports: No Symptoms Reported Musculoskeletal: reports: Back Pain, Joint Pain Integumentary: reports: Flushing, Sweating Neuro: reports: Tingling, Tremors Endocrine: reports: Excessive Sweating, Flushing, Intolerance to Cold, Intolerance to Heat Hematology: reports: No Symptoms Reported Psychiatric: reports: No Sypmtoms Reported, Judgement Intact, Mood/Affect Appropiate, Orientated x3, Agitated, Anxious Other Systems: Reviewed and Negative Patient History - Patient Medical History Hx Anemia: No Hx Asthma: No Hx Chronic Obstructive Pulmonary Disease (COPD): No Hx Cancer: No Hx Cardiac Disorders: No Hx Congestive Heart Failure: No Hx Hypertension: No Hx Hypercholesterolemia: No Hx Pacemaker: No HX Cerebrovascular Accident: No Hx Seizures: No Hx Dementia: No Hx Diabetes: No Hx Gastrointestinal Disorders: No Hx Liver Disease: No Hx Genitourinary Disorders: No Hx Sexually Transmitted Disorders: No Hx Renal Disease (ESRD): No Hx Thyroid Disease: No Hx Human Immunodeficiency Virus (HIV): No (NEGATIVE HX) Hx Hepatitis C: No (NEGATIVE) Hx Depression: No Hx Suicide Attempt: No (denies) Hx Bipolar Disorder: No Hx Schizophrenia: No Other Medical History: anxiety - Patient Surgical History Past Surgical History: No Hx Neurologic Surgery: No Hx Cataract Extraction: No Hx Cardiac Surgery: No Hx Lung Surgery: No Hx Breast Surgery: No Hx Breast Biopsy: No Hx Abdominal Surgery: No Hx Appendectomy: No Hx Cholecystectomy: No Hx Genitourinary Surgery: No Hx Section: No Hx Orthopedic Surgery: No Anesthesia Reaction: No - PPD History Previous Implant?: Yes Documented Results: Negative w/proof Implanted On Prior [facility] Admission?: Yes Date: 03/25/17 Results: 0 mm PPD to be Administered?: No - Reproductive History Patient is a Female of Child Bearing Age (11 -55 yrs old): No - Smoking Cessation Smoking history: Current every day smoker Have you smoked in the past 12 months: Yes Aproximately how many cigarettes per day: 10 Cigars Per Day: 0 Hx Chewing Tobacco Use: No Initiated information on smoking cessation: Yes 'Breaking Loose' booklet given: 02/09/18 - Substance & Tx. History Hx Alcohol Use: No Hx Substance Use: Yes Substance Use Type: Heroin Hx Substance Use Treatment: Yes (last detox [facility] 06/2017) - Substances Abused Heroin Route: Inhalation Frequency: Daily Amount used: 10 bags Age of first use: 22 Date of Last Use: 02/09/18 Family Disease History - Family Disease History Family Disease History: Diabetes: Grandparent (HTN,THYROID), Heart Disease: Grandparent, CA: Grandparent, Father (THROAT) Admission Physical Exam BHS - Vital Signs Vital Signs: Vital Signs - 24 hr 02/09/18 15:02 Temperature 98.3 F Pulse Rate 86 Respiratory 20 Rate Blood Pressure 127/66 - Physical General Appearance: Yes: Appropriately Dressed, Moderate Distress, Tremorous, Irritable, Sweating, Anxious HEENTM: Yes: Hearing grossly Normal, Normal Voice, Nasal Congestion, Rhinorrhea Respiratory: Yes: Lungs Clear, Normal Breath Sounds, No Respiratory Distress Neck: Yes: No masses,lesions,Nodules Breast: Yes: Within Normal Limits, Axillae without masses, No Discharge, No masses Cardiology: Yes: Regular Rhythm, Regular Rate, S1, S2 Abdominal: Yes: Normal Bowel Sounds, Non Tender, Flat Genitourinary: Yes: Within Normal Limits Back: Yes: Normal Inspection Musculoskeletal: Yes: full range of Motion, Back pain, Joint Stiffness Extremities: Yes: Normal Capillary Refill, Normal Inspection, Non-Tender, Tremors Neurological: Yes: Fully Oriented, Alert, Normal Response Integumentary: Yes: Normal Color, Diaphoresis Lymphatic: Yes: Within Normal Limits - Diagnostic (1) Nicotine dependence Current Visit: Yes Status: Chronic Qualifiers: Nicotine product type: cigarettes Substance use status: uncomplicated Qualified Code(s): F17.210 - Nicotine dependence, cigarettes, uncomplicated (2) Opioid dependence with withdrawal Current Visit: Yes Status: Chronic Cleared for Admission [facility] - Detox or Rehab [facility] Level of Care: Medically Managed Detox Regimen/Protocol: Methadone [facility] Breath Alcohol Content Breath Alcohol Content: 0 Urine Drug Screen - Results Drug Screen Negative: No Urine Drug Screen Results: OPI-Opiates
[2018-02-09] MEDS ORDERED: guaiFENesin/D-METHORPHAN HB 10 ML UNIT-DOSE CUPS PO PRN (16:49)
[2018-02-09] MEDS ORDERED: IBUPROFEN 400 MG TABLET (FP) PO PRN (16:49)
[2018-02-09] MEDS ORDERED: MAGNESIUM CITRATE 300 ML BOTTLE PO PRN (16:49)
[2018-02-09] MEDS ORDERED: ACETAMINOPHEN 325 MG TABLET (FP) PO PRN (16:49)
[2018-02-09] MEDS ORDERED: P-EPHED 60MG/TRIPROLIDI 2.5MG TABLET PO PRN (16:49)
[2018-02-09] MEDS ORDERED: MAG HYDROX/AL HYDROX/SIMETH 30 ML UNIT-DOSE CUP PO PRN (16:49)
[2018-02-09] MEDS ORDERED: LOPERAMIDE HCL 2 MG CAPSULE PO PRN (16:49)
[2018-02-09] MEDS ORDERED: MENTHOL/PHENOL 1 EACH UD MM PRN (16:49)
[2018-02-09] MEDS ORDERED: NICOTINE POLACRILEX 4 MG GUM BC PRN (16:49)
[2018-02-09] MEDS ORDERED: MAGNESIUM HYDROX 2400MG/30ML ORAL SUSPENSION 30 ML CUP PO PRN (16:49)
[2018-02-09] MEDS ORDERED: hydrOXYzine PAMOATE 50 MG CAPSULE (FP) PO PRN (16:49)
[2018-02-09] MEDS ORDERED: METHADONE HCL 10 MG TABLET (FOR DETOX USE ONLY) PO ONE ×2 (19:00→23:00)
[2018-02-09] MEDS: diazePAM 5 MG TABLET PO PRN (20:09)
[2018-02-09] MEDS ORDERED: MELATONIN 5 MG TABLETS PO PRN (22:00)
[2018-02-09] MEDS: THIAMINE HCL 100 MG TABLET (FP) PO SCH (22:35)
[2018-02-09 23:18] LABS: URINE APPEARANCE CLEAR; URINE BILIRUBIN NEGATIVE (<2.0 mg/dL); URINE COLOR YELLOW; URINE GLUCOSE (UA) NEGATIVE (NEGATIVE); URINE KETONE NEGATIVE (NEGATIVE); URINE LEUK ESTERASE NEGATIVE (NEGATIVE); URINE NITRITE NEGATIVE (NEGATIVE); URINE PROTEIN NEGATIVE (NEGATIVE); URINE UROBILINOGEN NEGATIVE mg/dL (0.2-1.0)
[2018-02-10] MEDS ORDERED: hydrOXYzine PAMOATE 50 MG CAPSULE (FP) PO PRN (08:31)
[2018-02-10] MEDS ORDERED: METHADONE HCL 10 MG TABLET (FOR DETOX USE ONLY) PO ONE (10:00)
[2018-02-10 10:35] LABS: HEMATOCRIT 42.1 % (35.4-49); HEMOGLOBIN 14.5 GM/dL (11.7-16.9); MCH 29.2 pg (25.7-33.7); MCHC 34.4 g/dl (32.0-35.9); MEAN CELL VOLUME 84.7 fl (80-96); PLATELET COUNT 239 K/MM3 (134-434); RBC 4.97 M/mm3 (4.00-5.60); RDW 13.1 % (11.9-15.9); WHITE BLOOD COUNT 7.7 K/mm3 (4.0-10.0)
[2018-02-10] MEDS: NICOTINE 21 MG/24 HOURS TOPICAL PATCH TD SCH (10:39)
[2018-02-10] MEDS: PRENATAL VITAMINS W/ FOLIC ACID TABLET (FP) PO SCH (10:39)
[2018-02-10] MEDS: diazePAM 5 MG TABLET PO PRN ×2 (10:40→22:20)
[2018-02-10 10:47] LABS: CHLORIDE 107 mmol/L (98-107); POTASSIUM 3.8 mmol/L (3.5-5.1); SODIUM 141 mmol/L (136-145)
[2018-02-10 10:55] LABS: ALBUMIN 4.2 g/dl (3.4-5.0); ALK PHOS 65 U/L (45-117); ANION GAP 7 (8-16); BILIRUBIN,TOTAL 0.5 mg/dL (0.2-1.0); BLOOD UREA NITROGEN 10 mg/dL (7-18); CALCIUM 9.1 mg/dL (8.5-10.1); CO2 27 mmol/L (21-32); CREATININE 0.9 mg/dL (0.7-1.3); GLUCOSE,RANDOM 112 mg/dL (74-106); SGOT/AST 21 U/L (15-37); SGPT/ALT 34 U/L (12-78); TOT PROT 7.7 g/dl (6.4-8.2)
--- NOTE | 2018-02-10 11:29 | CONSULT ---
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 Substance Abuse History: Smoking history: Current every day smoker. Have you smoked in the past 12 months: Yes. Aproximately how many cigarettes per day: 10. Cigars Per Day: 0. Hx Chewing Tobacco Use: No. Initiated information on smoking cessation: Yes. 'Breaking Loose' booklet given: 02/09/18. - Substance & Tx. History. Hx Alcohol Use: No. Hx Substance Use: Yes. Substance Use Type : Heroin. Hx Substance Use Treatment: Yes (last detox [facility] 06/2017) . - Substances Abused. Heroin. Route: Inhalation. Frequency: Daily. Amount used: 10 bags. Age of first use: 22. Date of Last Use: 02/09/18 Medical History: Denies significant medical problems Psychiatric History: Patient reports anxiety, FELIPE, reports takig prior to admission: Vistaril 50mg po tid Physical/Sexual Abuse/Trauma History: Denies Additional Comment: Vistaril 50mg po tid Mental Status Exam - Mental Status Exam Alert and Oriented to: Person Cognitive Function: Fair Patient Appearance: Unkempt Mood: Anxious Affect: Mood Congruent Patient Behavior: Cooperative Speech Pattern: Appropriate Voice Loudness: Normal Thought Process: Goal Oriented Thought Disorder: Being Controlled Hallucinations: Denies Suicidal Ideation: Denies Homicidal Ideation: Denies Insight/Judgement: Fair Sleep: Difficulty falling asleep Appetite: Weight loss Muscle strength/Tone: Normal Gait/Station: Normal Additional Comments: Vistaril 50mg po tid Psychiatric Findings - Problem List ([place] 1, 2,3) (1) Nicotine dependence Current Visit: Yes Status: Chronic Qualifiers: Nicotine product type: cigarettes Substance use status: uncomplicated Qualified Code(s): F17.210 - Nicotine dependence, cigarettes, uncomplicated (2) Opioid dependence with withdrawal Current Visit: Yes Status: Chronic (3) FELIPE (generalized anxiety disorder) Current Visit: No Status: Acute (4) Opioid dependence Current Visit: No Status: Acute (5) Opioid-induced sleep disorder Current Visit: No Status: Acute (6) Sedative hypnotic or anxiolytic dependence Current Visit: No Status: Acute - Initial Treatment Plan Initial Treatment Plan: Vistaril 50mg po PRN, Q4 FOR ANXIETY
--- NOTE | 2018-02-10 12:15 | PN ---
BHS COWS - Scale Resting Pulse: 0= [place] 80 or Below Sweatin= Chills/Flushing Restless Observation: 1= Difficult to Sit Still Pupil Size: 1= Pupils >than Normal Bone or Joint Aches: 2= Severe Diffuse Aches Runny Nose/ Eye Tearin= Nasal Congestion GI Upset > 30mins: 1= Stomach Cramp Tremor Observation of Outstretched Hands: 2= Slight Tremor Visible Yawning Observation: 2= >3x During Session Anxiety or Irritability: 2=Irritable/Anxious Goose Flesh Skin: 0=Smooth Skin COWS Score: 13 BHS Progress Note (SOAP) Subjective: body ache joint pain sweat trouble sleep at night hot and cold Objective: 02/10/18 12:14 Vital Signs Temperature 98.1 F 02/10/18 09:58 Pulse Rate 62 02/10/18 09:58 Respiratory Rate 18 02/10/18 09:58 Blood Pressure 114/62 02/10/18 09:58 O2 Sat by Pulse Oximetry (%) Laboratory Last Values WBC 7.7 K/mm3 (4.0-10.0) 02/10/18 05:55 RBC 4.97 M/mm3 (4.00-5.60) 02/10/18 05:55 Hgb 14.5 GM/dL (11.7-16.9) 02/10/18 05:55 Hct 42.1 % (35.4-49) 02/10/18 05:55 MCV 84.7 fl (80-96) 02/10/18 05:55 MCH 29.2 pg (25.7-33.7) 02/10/18 05:55 MCHC 34.4 g/dl (32.0-35.9) 02/10/18 05:55 RDW 13.1 % (11.9-15.9) 02/10/18 05:55 Plt Count 239 K/MM3 (134-434) 02/10/18 05:55 MPV 9.0 fl (7.5-11.1) 02/10/18 05:55 Sodium 141 mmol/L (136-145) 02/10/18 05:55 Potassium 3.8 mmol/L (3.5-5.1) 02/10/18 05:55 Chloride 107 mmol/L (98-107) 02/10/18 05:55 Carbon Dioxide 27 mmol/L (21-32) 02/10/18 05:55 Anion Gap 7 (8-16) L 02/10/18 05:55 BUN 10 mg/dL (7-18) 02/10/18 05:55 Creatinine 0.9 mg/dL (0.7-1.3) 02/10/18 05:55 Creat Clearance w eGFR > 60 (>60) 02/10/18 05:55 Random Glucose 112 mg/dL (74-106) H 02/10/18 05:55 Calcium 9.1 mg/dL (8.5-10.1) 02/10/18 05:55 Total Bilirubin 0.5 mg/dL (0.2-1.0) D 02/10/18 05:55 AST 21 U/L (15-37) D 02/10/18 05:55 ALT 34 U/L (12-78) D 02/10/18 05:55 Alkaline Phosphatase 65 U/L (45-117) 02/10/18 05:55 Total Protein 7.7 g/dl (6.4-8.2) 02/10/18 05:55 Albumin 4.2 g/dl (3.4-5.0) 02/10/18 05:55 Urine Color Yellow 02/09/18 21:36 Urine Appearance Clear 02/09/18 21:36 Urine pH 7.0 (5.0-8.0) 02/09/18 21:36 Ur Specific [place] 1.023 (1.001-1.035) 02/09/18 21:36 Urine Protein Negative (NEGATIVE) 02/09/18 21:36 Urine Glucose (UA) Negative (NEGATIVE) 02/09/18 21:36 Urine Ketones Negative (NEGATIVE) 02/09/18 21:36 Urine Blood Negative (NEGATIVE) 02/09/18 21:36 Urine Nitrite Negative (NEGATIVE) 02/09/18 21:36 Urine Bilirubin Negative (<2.0 mg/dL) 02/09/18 21:36 Urine Urobilinogen Negative mg/dL (0.2-1.0) 02/09/18 21:36 Ur Leukocyte Esterase Negative (NEGATIVE) 02/09/18 21:36 lab noted Assessment: 02/10/18 12:15 withdrawal sx Plan: continue detox
--- NOTE | 2018-02-10 13:29 | EKG ---
Test Reason : Blood Pressure : / mmHG Vent. Rate : 060 BPM Atrial Rate : 060 BPM P-R Int : 152 ms QRS Dur : 098 ms QT Int : 404 ms P-R-T Axes : 047 044 035 degrees QTc Int : 404 ms NORMAL SINUS RHYTHM WITH SINUS ARRHYTHMIA NORMAL ECG WHEN COMPARED WITH ECG OF 30-MAR-2017 20:14, T WAVE AMPLITUDE HAS DECREASED IN ANTERIOR LEADS Confirmed by GEORGETTE KAPADIA, PARDEEP ([id number]) on 02/10/2018 1:29:42 PM Referred By: Confirmed By:PARDEEP PALOMINO MD
[2018-02-10] MEDS: THIAMINE HCL 100 MG TABLET (FP) PO SCH (22:20)
[2018-02-11] MEDS: diazePAM 5 MG TABLET PO PRN ×3 (02:15→22:19)
[2018-02-11] MEDS: PRENATAL VITAMINS W/ FOLIC ACID TABLET (FP) PO SCH (09:41)
[2018-02-11] MEDS: NICOTINE 21 MG/24 HOURS TOPICAL PATCH TD SCH (09:41)
[2018-02-11] MEDS ORDERED: METHADONE HCL 5 MG TABLET (FOR DETOX USE ONLY) PO ONE (10:00)
--- NOTE | 2018-02-11 11:38 | PN ---
S COWS - Scale Resting Pulse: 0= [place] 80 or Below Sweatin= Chills/Flushing Restless Observation: 1= Difficult to Sit Still Pupil Size: 1= Pupils >than Normal Bone or Joint Aches: 1= Mild Discomfort Runny Nose/ Eye Tearin= Nasal Congestion GI Upset > 30mins: 1= Stomach Cramp Tremor Observation of Outstretched Hands: 1= Tremor [place], Not Seen Yawning Observation: 2= >3x During Session Anxiety or Irritability: 2=Irritable/Anxious Goose Flesh Skin: 0=Smooth Skin COWS Score: 11 S Progress Note (SOAP) Subjective: joint pain body ache sweat tremor tolerated food and fluid well Objective: 02/11/18 11:39 Vital Signs Temperature 98.4 F 02/11/18 10:38 Pulse Rate 58 L 02/11/18 10:38 Respiratory Rate 18 02/11/18 10:38 Blood Pressure 136/61 02/11/18 10:38 O2 Sat by Pulse Oximetry (%) Laboratory Last Values WBC 7.7 K/mm3 (4.0-10.0) 02/10/18 05:55 RBC 4.97 M/mm3 (4.00-5.60) 02/10/18 05:55 Hgb 14.5 GM/dL (11.7-16.9) 02/10/18 05:55 Hct 42.1 % (35.4-49) 02/10/18 05:55 MCV 84.7 fl (80-96) 02/10/18 05:55 MCH 29.2 pg (25.7-33.7) 02/10/18 05:55 MCHC 34.4 g/dl (32.0-35.9) 02/10/18 05:55 RDW 13.1 % (11.9-15.9) 02/10/18 05:55 Plt Count 239 K/MM3 (134-434) 02/10/18 05:55 MPV 9.0 fl (7.5-11.1) 02/10/18 05:55 Sodium 141 mmol/L (136-145) 02/10/18 05:55 Potassium 3.8 mmol/L (3.5-5.1) 02/10/18 05:55 Chloride 107 mmol/L (98-107) 02/10/18 05:55 Carbon Dioxide 27 mmol/L (21-32) 02/10/18 05:55 Anion Gap 7 (8-16) L 02/10/18 05:55 BUN 10 mg/dL (7-18) 02/10/18 05:55 Creatinine 0.9 mg/dL (0.7-1.3) 02/10/18 05:55 Creat Clearance w eGFR > 60 (>60) 02/10/18 05:55 Random Glucose 112 mg/dL (74-106) H 02/10/18 05:55 Calcium 9.1 mg/dL (8.5-10.1) 02/10/18 05:55 Total Bilirubin 0.5 mg/dL (0.2-1.0) D 02/10/18 05:55 AST 21 U/L (15-37) D 02/10/18 05:55 ALT 34 U/L (12-78) D 02/10/18 05:55 Alkaline Phosphatase 65 U/L (45-117) 02/10/18 05:55 Total Protein 7.7 g/dl (6.4-8.2) 02/10/18 05:55 Albumin 4.2 g/dl (3.4-5.0) 02/10/18 05:55 Urine Color Yellow 02/09/18 21:36 Urine Appearance Clear 02/09/18 21:36 Urine pH 7.0 (5.0-8.0) 02/09/18 21:36 Ur Specific [place] 1.023 (1.001-1.035) 02/09/18 21:36 Urine Protein Negative (NEGATIVE) 02/09/18 21:36 Urine Glucose (UA) Negative (NEGATIVE) 02/09/18 21:36 Urine Ketones Negative (NEGATIVE) 02/09/18 21:36 Urine Blood Negative (NEGATIVE) 02/09/18 21:36 Urine Nitrite Negative (NEGATIVE) 02/09/18 21:36 Urine Bilirubin Negative (<2.0 mg/dL) 02/09/18 21:36 Urine Urobilinogen Negative mg/dL (0.2-1.0) 02/09/18 21:36 Ur Leukocyte Esterase Negative (NEGATIVE) 02/09/18 21:36 RPR Titer Nonreactive (NONREACTIVE) 02/10/18 05:55 lab noted Assessment: 02/11/18 11:40 withdrawal sx Plan: continue detox
[2018-02-11] MEDS: THIAMINE HCL 100 MG TABLET (FP) PO SCH (22:20)
[2018-02-12] MEDS: diazePAM 5 MG TABLET PO PRN (06:21)
--- NOTE | 2018-02-12 09:15 | PN ---
BHS Progress Note (SOAP) Subjective: joint paint body ache sweat tremor restlessness trouble sleep at night Objective: 02/12/18 09:13 Vital Signs Temperature 97.9 F 02/12/18 09:10 Pulse Rate 53 L 02/12/18 09:10 Respiratory Rate 18 02/12/18 09:10 Blood Pressure 140/86 02/12/18 09:10 O2 Sat by Pulse Oximetry (%) Laboratory Last Values WBC 7.7 K/mm3 (4.0-10.0) 02/10/18 05:55 RBC 4.97 M/mm3 (4.00-5.60) 02/10/18 05:55 Hgb 14.5 GM/dL (11.7-16.9) 02/10/18 05:55 Hct 42.1 % (35.4-49) 02/10/18 05:55 MCV 84.7 fl (80-96) 02/10/18 05:55 MCH 29.2 pg (25.7-33.7) 02/10/18 05:55 MCHC 34.4 g/dl (32.0-35.9) 02/10/18 05:55 RDW 13.1 % (11.9-15.9) 02/10/18 05:55 Plt Count 239 K/MM3 (134-434) 02/10/18 05:55 MPV 9.0 fl (7.5-11.1) 02/10/18 05:55 Sodium 141 mmol/L (136-145) 02/10/18 05:55 Potassium 3.8 mmol/L (3.5-5.1) 02/10/18 05:55 Chloride 107 mmol/L (98-107) 02/10/18 05:55 Carbon Dioxide 27 mmol/L (21-32) 02/10/18 05:55 Anion Gap 7 (8-16) L 02/10/18 05:55 BUN 10 mg/dL (7-18) 02/10/18 05:55 Creatinine 0.9 mg/dL (0.7-1.3) 02/10/18 05:55 Creat Clearance w eGFR > 60 (>60) 02/10/18 05:55 Random Glucose 112 mg/dL (74-106) H 02/10/18 05:55 Calcium 9.1 mg/dL (8.5-10.1) 02/10/18 05:55 Total Bilirubin 0.5 mg/dL (0.2-1.0) D 02/10/18 05:55 AST 21 U/L (15-37) D 02/10/18 05:55 ALT 34 U/L (12-78) D 02/10/18 05:55 Alkaline Phosphatase 65 U/L (45-117) 02/10/18 05:55 Total Protein 7.7 g/dl (6.4-8.2) 02/10/18 05:55 Albumin 4.2 g/dl (3.4-5.0) 02/10/18 05:55 Urine Color Yellow 02/09/18 21:36 Urine Appearance Clear 02/09/18 21:36 Urine pH 7.0 (5.0-8.0) 02/09/18 21:36 Ur Specific [place] 1.023 (1.001-1.035) 02/09/18 21:36 Urine Protein Negative (NEGATIVE) 02/09/18 21:36 Urine Glucose (UA) Negative (NEGATIVE) 02/09/18 21:36 Urine Ketones Negative (NEGATIVE) 02/09/18 21:36 Urine Blood Negative (NEGATIVE) 02/09/18 21:36 Urine Nitrite Negative (NEGATIVE) 02/09/18 21:36 Urine Bilirubin Negative (<2.0 mg/dL) 02/09/18 21:36 Urine Urobilinogen Negative mg/dL (0.2-1.0) 02/09/18 21:36 Ur Leukocyte Esterase Negative (NEGATIVE) 02/09/18 21:36 RPR Titer Nonreactive (NONREACTIVE) 02/10/18 05:55 lab noted Assessment: 02/12/18 09:14 withdrawal sx 02/12/18 09:15 nicotine addiction 02/12/18 09:16 Plan: continue detox cigarette smoking cessation
[2018-02-12] MEDS ORDERED: METHADONE HCL 5 MG TABLET (FOR DETOX USE ONLY) PO ONE (10:00)
[2018-02-12] MEDS: PRENATAL VITAMINS W/ FOLIC ACID TABLET (FP) PO SCH (10:42)
[2018-02-12] MEDS: NICOTINE 21 MG/24 HOURS TOPICAL PATCH TD SCH (10:43)
[2018-02-12 13:39] VITALS: TEMP 98.2
--- NOTE | 2018-02-12 17:33 | DS ---
[facility] Detox Discharge Summary Admission Date: 02/09/18 Discharge Date: 02/12/18 - History Present History: Opioid Dependence - Physical Exam Results Vital Signs: Vital Signs Temperature 98.2 F 02/12/18 13:38 Pulse Rate 77 02/12/18 13:38 Respiratory Rate 19 02/12/18 13:38 Blood Pressure 127/59 02/12/18 13:38 O2 Sat by Pulse Oximetry (%) Pertinent Admission Physical Exam Findings: Pt is alert and oriented x 3; no withdrawal symptoms noted and reported. Pt. stated he wanted to leave and he is felling well; no s/sx's withdrawal noted or reported. - Treatment Hospital Course: Discharged Condition Good - Medication Discharge Medications: Ambulatory Orders RX: hydrOXYzine PAMOATE [Vistaril -] 50 mg PO Q4H PRN 02/09/18 - Diagnosis (1) Nicotine dependence Current Visit: Yes Status: Chronic Qualifiers: Nicotine product type: cigarettes Substance use status: uncomplicated Qualified Code(s): F17.210 - Nicotine dependence, cigarettes, uncomplicated (2) Opioid dependence with withdrawal Current Visit: Yes Status: Chronic - AMA Did Patient Leave Against Medical Advice: Yes
[2018-02-12 17:57] VITALS: BP 120/62; PULSE 81
[2018-02-13] MEDS ORDERED: METHADONE HCL 10 MG TABLET (FOR DETOX USE ONLY) PO ONE (10:00)
[2018-02-14] MEDS ORDERED: METHADONE HCL 5 MG TABLET (FOR DETOX USE ONLY) PO ONE (06:00)
== END 2018-02-12 18:05 | disposition left against medical advice (07) | DRG 770 ==
LOC: YASAS 12:23 → Y6N 18:48
PROVIDERS: ADMIT Surgery; ATTEND Surgery
PROC: HZ2ZZZZ Detoxification Services for Substance Abuse Treatment (ICD-10-PCS; principal; 2018-02-09)
DX: F11.23 Opioid dependence with withdrawal (principal); F13.230 Sedative, hypnotic or anxiolytic dependence with withdrawal, uncomplicated; F17.210 Nicotine dependence, cigarettes, uncomplicated; F19.282 Other psychoactive substance dependence with psychoactive substance-induced sleep disorder; F41.1 Generalized anxiety disorder
CPT/HCPCS: 36415; 80053; 81003; 85027; 86593; 93005; 93010

== ENCOUNTER 2018-03-28 23:45 | Inpatient (IN) | payer OTHER ==
[2018-03-29 00:01] VITALS: BMI 30.4
--- NOTE | 2018-03-29 00:20 | HP ---
COWS - Scale Resting Pulse: 1= [place] 81-100 Sweatin=Flushed/Facial Moisture Restless Observation: 5= Unable to Sit Still Pupil Size: 0= Normal to Room Light Bone or Joint Aches: 4=Acute Joint/Muscle Pain Runny Nose/ Eye Tearin= Runny Nose/Eyes GI Upset > 30mins: 0= None Tremor Observation: 0= None Yawning Observation: 2= >3x During Session Anxiety or Irritability: 2=Irritable/Anxious Goose Flesh Skin: 0=Smooth Skin COWS Score: 18 Admission [facility] Chief Complaint: C/O WITHDRAWAL SX'S Allergies/Adverse Reactions: Allergies Allergy/AdvReac Type Severity Reaction Status Date / Time No Known Allergies Allergy Verified 02/09/18 15:26 History of Present Illness: 22 Y.O. MALE WITH HX/O HEROIN DEPENDENCE HERE FOR DETOX. CLIENT IS KNOWN TO THIS PROGRAM. LAST HERE 2 MONTHS AGO WHERE HE SIGNED OUT. HE IS SELF REFERRED. REPORTS LONGEST CLEAN TIME 75 DAYS. DENIES PREVIOUS HX/O OVERDOSE, SI, HI. UTOX + BZO. CLIENT DENIES USE Exam Limitations: No Limitations - Ebola screening Have you traveled outside of the country in the last 21 days: No (N) Have you had contact with anyone from an Ebola affected area: No Do you have a fever: No - Review of Systems Constitutional: Chills, Malaise, Night Sweats, Changes in sleep EENT: reports: Tearing, Nose Congestion ([place]), Dental Problems ([place]) Respiratory: reports: No Symptoms reported Cardiac: reports: No Symptoms Reported GI: reports: Diarrhea, Poor Appetite : reports: No Symptoms Reported Musculoskeletal: reports: Back Pain, Joint Pain Integumentary: reports: Flushing, Sweating Neuro: reports: No Symptoms reported Endocrine: reports: No Symptoms Reported Hematology: reports: No Symptoms Reported Psychiatric: reports: Anxious Other Systems: Reviewed and Negative Patient History - Patient Medical History Hx Anemia: No Hx Asthma: No Hx Chronic Obstructive Pulmonary Disease (COPD): No Hx Cancer: No Hx Cardiac Disorders: No Hx Congestive Heart Failure: No Hx Hypertension: No Hx Hypercholesterolemia: No Hx Pacemaker: No HX Cerebrovascular Accident: No Hx Seizures: No Hx Dementia: No Hx Diabetes: No Hx Gastrointestinal Disorders: No Hx Liver Disease: No Hx Genitourinary Disorders: No Hx Sexually Transmitted Disorders: No Hx Renal Disease (ESRD): No Hx Thyroid Disease: No Hx Human Immunodeficiency Virus (HIV): No Hx Hepatitis C: No Hx Depression: No Hx Suicide Attempt: No Hx Bipolar Disorder: No Hx Schizophrenia: No Other Medical History: DENIES - Patient Surgical History Past Surgical History: No Hx Neurologic Surgery: No Hx Cataract Extraction: No Hx Cardiac Surgery: No Hx Lung Surgery: No Hx Breast Surgery: No Hx Breast Biopsy: No Hx Abdominal Surgery: No Hx Appendectomy: No Hx Cholecystectomy: No Hx Genitourinary Surgery: No Hx Section: No Hx Orthopedic Surgery: No Anesthesia Reaction: No - PPD History Previous Implant?: Yes Documented Results: Negative w/proof Implanted On Prior R Admission?: No Date: 03/25/17 Results: 0 mm PPD to be Administered?: Yes - Smoking Cessation Smoking history: Current every day smoker Have you smoked in the past 12 months: Yes Aproximately how many cigarettes per day: 10 Cigars Per Day: 0 Hx Chewing Tobacco Use: No Initiated information on smoking cessation: Yes 'Breaking Loose' booklet given: 03/29/18 - Substance & Tx. History Hx Alcohol Use: Yes Hx Substance Use: Yes Substance Use Type: Heroin Hx Substance Use Treatment: Yes ([facility] - Substances Abused HEROIN Route: Inhalation Frequency: Daily Amount used: 5-10 BAGS Age of first use: 25 Date of Last Use: 03/28/18 Family Disease History - Family Disease History Family Disease History: Diabetes: Grandparent (HTN,THYROID), Heart Disease: Grandparent, CA: Grandparent, Father (THROAT) Admission Physical Exam BHS - Vital Signs Vital Signs: Vital Signs - 24 hr 03/28/18 23:59 Temperature 98.4 F Pulse Rate 90 Respiratory 18 Rate Blood Pressure 143/72 - Physical General Appearance: Yes: Appropriately Dressed, Mild Distress, Sweating, Anxious HEENTM: Yes: EOMI, Normocephalic, Normal Voice, BRANDIE (DIALATED), Pharynx Normal , Nasal Congestion Respiratory: Yes: Chest Non-Tender, Lungs Clear, Normal Breath Sounds, No Respiratory Distress, No Accessory Muscle Use Neck: Yes: No masses,lesions,Nodules, Supple, Trachea in good position Breast: Yes: Breast Exam Deferred Cardiology: Yes: Regular Rhythm, Regular Rate, S1, S2 Abdominal: Yes: Normal Bowel Sounds, Non Tender, Soft, Protuberent Genitourinary: Yes: Within Normal Limits Back: Yes: Normal Inspection Musculoskeletal: Yes: full range of Motion, Gait Steady Extremities: Yes: Normal Range of Motion, Non-Tender, Tremors (FELT) Neurological: Yes: Alert, Motor Strength 5/5, Disoriented (TO DATE) Integumentary: Yes: Warm, Moist Lymphatic: Yes: Within Normal Limits - Diagnostic (1) Nicotine dependence Current Visit: Yes Status: Acute Qualifiers: Nicotine product type: cigarettes Substance use status: uncomplicated Qualified Code(s): F17.210 - Nicotine dependence, cigarettes, uncomplicated (2) Opioid dependence with withdrawal Current Visit: Yes Status: Acute (3) Opioid-induced sleep disorder Current Visit: Yes Status: Suspected Cleared for Admission [facility] - Detox or Rehab [facility] Level of Care: Medically Managed Detox Regimen/Protocol: Methadone Claeared for Rehab Admission: No S Breath Alcohol Content Breath Alcohol Content: 0 Urine Drug Screen - Results Drug Screen Negative: No Urine Drug Screen Results: OPI-Opiates, BZO-Benzodiazepines
[2018-03-29] MEDS ORDERED: MENTHOL/PHENOL 1 EACH UD MM PRN (00:33)
[2018-03-29] MEDS ORDERED: P-EPHED 60MG/TRIPROLIDI 2.5MG TABLET PO PRN (00:33)
[2018-03-29] MEDS ORDERED: METHADONE HCL 10 MG TABLET (FOR DETOX USE ONLY) PO ONE ×3 (00:33→23:00)
[2018-03-29] MEDS ORDERED: MAG HYDROX/AL HYDROX/SIMETH 30 ML UNIT-DOSE CUP PO PRN (00:33)
[2018-03-29] MEDS ORDERED: guaiFENesin/D-METHORPHAN HB 10 ML UNIT-DOSE CUPS PO PRN (00:33)
[2018-03-29] MEDS ORDERED: MAGNESIUM CITRATE 300 ML BOTTLE PO PRN (00:33)
[2018-03-29] MEDS ORDERED: MAGNESIUM HYDROX 2400MG/30ML ORAL SUSPENSION 30 ML CUP PO PRN (00:33)
[2018-03-29] MEDS ORDERED: ACETAMINOPHEN 325 MG TABLET (FP) PO PRN (00:33)
[2018-03-29] MEDS ORDERED: LOPERAMIDE HCL 2 MG CAPSULE PO PRN (00:33)
[2018-03-29] MEDS: diazePAM 5 MG TABLET PO PRN ×3 (01:32→22:34)
[2018-03-29 09:48] LABS: HEMATOCRIT 40.7 % (35.4-49); MCH 29.2 pg (25.7-33.7); MCHC 34.4 g/dl (32.0-35.9); MEAN PLT VOLUME 8.4 fl (7.5-11.1); PLATELET COUNT 221 K/MM3 (134-434); RBC 4.79 M/mm3 (4.00-5.60); RDW 13.7 % (11.9-15.9); WHITE BLOOD COUNT 6.6 K/mm3 (4.0-10.0)
[2018-03-29 10:24] LABS: CHLORIDE 105 mmol/L (98-107); POTASSIUM 3.8 mmol/L (3.5-5.1); SODIUM 141 mmol/L (136-145)
[2018-03-29] MEDS: PRENATAL VITAMINS W/ FOLIC ACID TABLET (FP) PO SCH (10:26)
[2018-03-29] MEDS: NICOTINE 21 MG/24 HOURS TOPICAL PATCH TD SCH (10:28)
[2018-03-29 10:36] LABS: ALBUMIN 3.6 g/dl (3.4-5.0); ALK PHOS 66 U/L (45-117); ANION GAP 7 (8-16); BILIRUBIN,TOTAL 0.3 mg/dL (0.2-1.0); BLOOD UREA NITROGEN 11 mg/dL (7-18); CALCIUM 8.6 mg/dL (8.5-10.1); CO2 29 mmol/L (21-32); CREATININE 0.8 mg/dL (0.7-1.3); GLUCOSE,RANDOM 88 mg/dL (74-106); SGOT/AST 12 U/L (15-37); SGPT/ALT 23 U/L (12-78); TOT PROT 6.4 g/dl (6.4-8.2)
--- NOTE | 2018-03-29 11:27 | PN ---
S Progress Note Note: PT WAS ADMITTED EARLIER THIS MORNING. C/O INTERMITTENT SLEEP. Vital Signs 03/29/18 03/29/18 03/29/18 03:30 06:00 09:35 Temperature 99.2 F 96.6 F L Pulse Rate 70 58 L Respiratory 18 18 20 Rate Blood Pressure 97/52 90/51 Laboratory Tests 03/29/18 03/29/18 07:00 07:00 WBC 6.6 RBC 4.79 Hgb 14.0 Hct 40.7 MCV 85.0 MCH 29.2 MCHC 34.4 RDW 13.7 Plt Count 221 MPV 8.4 Sodium 141 Potassium 3.8 Chloride 105 Carbon Dioxide 29 Anion Gap 7 L BUN 11 Creatinine 0.8 Creat Clearance w eGFR > 60 Random Glucose 88 D Calcium 8.6 Total Bilirubin 0.3 AST 12 L D ALT 23 D Alkaline Phosphatase 66 Total Protein 6.4 Albumin 3.6 CONTINUE DETOX
--- NOTE | 2018-03-29 13:00 | CONSULT ---
[facility] Psychiatric Consult - Data Date of interview: 03/29/18 Admission source: [facility] Identifying data: One of multiple admissions to [facility] for this 22 y/o male seeking detoxification treatment on for heroin dependence.Patient is single without children,domiciled (lives with his mother), currently unemployed and supported by relatives. Substance Abuse History: Confirmed by patient in this session.Smoking history: Current every day smoker. Have you smoked in the past 12 months: Yes. Aproximately how many cigarettes per day: 10. Cigars Per Day: 0. Hx Chewing Tobacco Use: No. Initiated information on smoking cessation: Yes. 'Breaking Loose' booklet given: 03/29/18. - Substance & Tx. History. Hx Alcohol Use: Yes. Hx Substance Use: Yes. Substance Use Type: Heroin. Hx Substance Use Treatment: Yes ([facility] - Substances Abused. HEROIN. Route: Inhalation. Frequency: Daily. Amount used: 5-10 BAGS. Age of first use: 25. Date of Last Use: 03/28/18 Medical History: Patient denies medical problems. Psychiatric History: Patient denies. Physical/Sexual Abuse/Trauma History: Patient denies. Additional Comment: Urine Drug Screen Results: OPI-Opiates, BZO- Benzodiazepines.Noted. Mental Status Exam - Mental Status Exam Alert and Oriented to: Time, Place, Person Cognitive Function: Good Patient Appearance: Well Groomed Mood: Hopeful, Euthymic Affect: Appropriate, Normal Range Patient Behavior: Cooperative Speech Pattern: Clear, Appropriate Voice Loudness: Normal Thought Process: Intact, Goal Oriented Thought Disorder: Not Present Hallucinations: Denies Suicidal Ideation: Denies Homicidal Ideation: Denies Insight/Judgement: Poor Sleep: Poorly, Difficulty falling asleep Appetite: Good Muscle strength/Tone: Normal Gait/Station: Normal Psychiatric Findings - Problem List ([place] 1, 2,3) (1) Opioid dependence with withdrawal Current Visit: Yes Status: Acute (2) Nicotine dependence Current Visit: Yes Status: Acute Qualifiers: Nicotine product type: cigarettes Substance use status: uncomplicated Qualified Code(s): F17.210 - Nicotine dependence, cigarettes, uncomplicated (3) Insomnia Current Visit: Yes Status: Acute - Initial Treatment Plan Initial Treatment Plan: Psychoeducation.Sleep hygiene.Detoxification.Ambien 5 mg po hs prn.Patient is made aware of risk of parasomnias.Agrees to nthis careplan.Observation.
--- NOTE | 2018-03-29 20:22 | EKG ---
Test Reason : Blood Pressure : / mmHG Vent. Rate : 080 BPM Atrial Rate : 080 BPM P-R Int : 154 ms QRS Dur : 098 ms QT Int : 360 ms P-R-T Axes : 046 050 028 degrees QTc Int : 415 ms NORMAL SINUS RHYTHM POSSIBLE LATERAL INFARCT , AGE UNDETERMINED ABNORMAL ECG WHEN COMPARED WITH ECG OF 09-FEB-2018 20:15, NO SIGNIFICANT CHANGE WAS FOUND Confirmed by MD JENNIFFER, PRERNA ([id number]) on 03/29/2018 8:22:07 PM Referred By: Confirmed By:PRERNA ABAD MD
[2018-03-29] MEDS ORDERED: MELATONIN 5 MG TABLETS PO PRN (22:00)
[2018-03-29] MEDS: ZOLPIDEM TARTRATE 5 MG TABLET PO PRN (22:34)
[2018-03-29] MEDS: THIAMINE HCL 100 MG TABLET (FP) PO SCH (22:34)
[2018-03-30] MEDS ORDERED: METHADONE HCL 10 MG TABLET (FOR DETOX USE ONLY) PO ONE (10:00)
[2018-03-30] MEDS: PRENATAL VITAMINS W/ FOLIC ACID TABLET (FP) PO SCH (10:07)
[2018-03-30] MEDS: NICOTINE 21 MG/24 HOURS TOPICAL PATCH TD SCH (10:07)
[2018-03-30] MEDS: diazePAM 5 MG TABLET PO PRN ×3 (10:07→22:10)
--- NOTE | 2018-03-30 13:44 | PN ---
BHS COWS - Scale Resting Pulse: 0= [place] 80 or Below Sweatin= Chills/Flushing Restless Observation: 3= Extraneous Movement Pupil Size: 2= Moderately Dilated Bone or Joint Aches: 4=Acute Joint/Muscle Pain Runny Nose/ Eye Tearin= None GI Upset > 30mins: 0= None Tremor Observation of Outstretched Hands: 1= Tremor [place], Not Seen Yawning Observation: 0= None Anxiety or Irritability: 2=Irritable/Anxious Goose Flesh Skin: 0=Smooth Skin COWS Score: 13 BHS Progress Note (SOAP) Subjective: ANXIETY,SWEATS,BACK PAIN,HOT/COLD CHILLS. C/O [place] BITE RASH/ITCH Objective: 03/30/18 13:43 Vital Signs 03/30/18 03/30/18 06:22 11:05 Temperature 97.7 F 97.2 F L Pulse Rate 68 70 Respiratory 18 16 Rate Blood Pressure 100/55 104/55 Laboratory Tests 03/29/18 03/29/18 03/29/18 07:00 07:00 07:00 WBC 6.6 RBC 4.79 Hgb 14.0 Hct 40.7 MCV 85.0 MCH 29.2 MCHC 34.4 RDW 13.7 Plt Count 221 MPV 8.4 Sodium 141 Potassium 3.8 Chloride 105 Carbon Dioxide 29 Anion Gap 7 L BUN 11 Creatinine 0.8 Creat Clearance w eGFR > 60 Random Glucose 88 D Calcium 8.6 Total Bilirubin 0.3 AST 12 L D ALT 23 D Alkaline Phosphatase 66 Total Protein 6.4 Albumin 3.6 RPR Titer Nonreactive Assessment: 03/30/18 13:43 WITHDRAWAL SX Plan: CONTINUE DETOX HYDROCORTISONE CREAM DIRECTED
[2018-03-30] MEDS: NICOTINE POLACRILEX 2 MG GUM BC PRN (14:34)
[2018-03-30] MEDS: HYDROCORTISONE 1% TOPICAL CREAM 30 GM TUBE TP SCH ×2 (16:20→22:10)
[2018-03-30 16:32] LABS: URINE APPEARANCE CLEAR; URINE BILIRUBIN NEGATIVE (<2.0 mg/dL); URINE COLOR YELLOW; URINE GLUCOSE (UA) NEGATIVE (NEGATIVE); URINE KETONE NEGATIVE (NEGATIVE); URINE LEUK ESTERASE NEGATIVE (NEGATIVE); URINE NITRITE NEGATIVE (NEGATIVE); URINE PROTEIN NEGATIVE (NEGATIVE); URINE UROBILINOGEN NEGATIVE mg/dL (0.2-1.0)
[2018-03-30] MEDS: ZOLPIDEM TARTRATE 5 MG TABLET PO PRN (22:10)
[2018-03-30] MEDS: THIAMINE HCL 100 MG TABLET (FP) PO SCH (22:10)
[2018-03-31] MEDS: HYDROCORTISONE 1% TOPICAL CREAM 30 GM TUBE TP SCH ×3 (06:39→22:50)
[2018-03-31] MEDS ORDERED: METHADONE HCL 5 MG TABLET (FOR DETOX USE ONLY) PO ONE (10:00)
[2018-03-31] MEDS: PRENATAL VITAMINS W/ FOLIC ACID TABLET (FP) PO SCH (10:36)
[2018-03-31] MEDS: diazePAM 5 MG TABLET PO PRN ×3 (10:36→19:10)
[2018-03-31] MEDS: NICOTINE 21 MG/24 HOURS TOPICAL PATCH TD SCH (10:37)
--- NOTE | 2018-03-31 11:55 | PN ---
BHS COWS - Scale Resting Pulse: 1= [place] 81-100 Sweatin= Chills/Flushing Restless Observation: 3= Extraneous Movement Pupil Size: 0= Normal to Room Light Bone or Joint Aches: 4=Acute Joint/Muscle Pain Runny Nose/ Eye Tearin= None GI Upset > 30mins: 1= Stomach Cramp Tremor Observation of Outstretched Hands: 1= Tremor [place], Not Seen Yawning Observation: 1= 1-2x During Session Anxiety or Irritability: 2=Irritable/Anxious Goose Flesh Skin: 0=Smooth Skin COWS Score: 14 BHS Progress Note (SOAP) Subjective: ANXIETY,SWEATS,INTERMITTENT SWEATS. Objective: 03/31/18 12:00 Vital Signs 03/31/18 03/31/18 03/31/18 06:12 06:30 09:40 Temperature 97.7 F 97.4 F L Pulse Rate 64 83 Respiratory 18 18 18 Rate Blood Pressure 100/46 128/70 Laboratory Tests 03/29/18 03/29/18 03/29/18 07:00 07:00 07:00 WBC 6.6 RBC 4.79 Hgb 14.0 Hct 40.7 MCV 85.0 MCH 29.2 MCHC 34.4 RDW 13.7 Plt Count 221 MPV 8.4 Sodium 141 Potassium 3.8 Chloride 105 Carbon Dioxide 29 Anion Gap 7 L BUN 11 Creatinine 0.8 Creat Clearance w eGFR > 60 Random Glucose 88 D Calcium 8.6 Total Bilirubin 0.3 AST 12 L D ALT 23 D Alkaline Phosphatase 66 Total Protein 6.4 Albumin 3.6 Urine Color Urine Appearance Urine pH Ur Specific [place] Urine Protein Urine Glucose (UA) Urine Ketones Urine Blood Urine Nitrite Urine Bilirubin Urine Urobilinogen Ur Leukocyte Esterase RPR Titer Nonreactive 03/30/18 16:00 WBC RBC Hgb Hct MCV MCH MCHC RDW Plt Count MPV Sodium Potassium Chloride Carbon Dioxide Anion Gap BUN Creatinine Creat Clearance w eGFR Random Glucose Calcium Total Bilirubin AST ALT Alkaline Phosphatase Total Protein Albumin Urine Color Yellow Urine Appearance Clear Urine pH 6.0 Ur Specific [place] 1.015 Urine Protein Negative Urine Glucose (UA) Negative Urine Ketones Negative Urine Blood Negative Urine Nitrite Negative Urine Bilirubin Negative Urine Urobilinogen Negative Ur Leukocyte Esterase Negative RPR Titer Assessment: 03/31/18 12:00 WITHDRAWAL SX Plan: CONTINUE DETOX
[2018-03-31] MEDS: THIAMINE HCL 100 MG TABLET (FP) PO SCH (22:36)
[2018-03-31] MEDS: ZOLPIDEM TARTRATE 5 MG TABLET PO PRN (22:36)
[2018-04-01] MEDS: HYDROCORTISONE 1% TOPICAL CREAM 30 GM TUBE TP SCH ×3 (06:58→22:20)
--- NOTE | 2018-04-01 08:59 | PN ---
Psychiatric Progress Note Vital Signs: Vital Signs Period Temp Pulse Resp BP Sys/Martinez Pulse Ox Last 24 Hr 96.9 F-97.9 F 61-84 18-18 100-128/49-77 Date of Session: 04/01/18 Chief Complaint:: " I still can't sleep." HPI: Pt. admitted to for heroin dependence. ROS: Unremarkable Current Medications: Active Medications Generic Name Dose Route Start Last Admin Trade Name Freq PRN Reason Stop Dose Admin Acetaminophen 650 mg 03/29/18 00:33 Tylenol - PO Q4H PRN FEVER Al Hydroxide/Mg Hydroxide 30 ml 03/29/18 00:33 Mylanta Oral Suspension - PO Q6H PRN DYSPEPSIA Eucalyptus/Menthol/Phenol/Sorbitol 1 each 03/29/18 00:33 Cepastat Lozenge - MM Q4H PRN SORE THROAT Guaifenesin 10 ml 03/29/18 00:33 Robitussin Dm - PO Q6H PRN COUGH Hydrocortisone 1 applic 03/30/18 14:00 04/01/18 06:58 Hytone 1% Cream - TP Not Given TID CYRUS Ibuprofen 400 mg 03/29/18 00:33 Motrin - PO Q6H PRN PAIN LEVEL 4-6 Loperamide HCl 4 mg 03/29/18 00:33 Imodium - PO Q6H PRN DIARRHEA Magnesium Citrate 300 ml 03/29/18 00:33 Citroma - PO Q48H PRN CONSTIPATION Magnesium Hydroxide 30 ml 03/29/18 00:33 Milk Of Magnesia - PO DAILY PRN CONSTIPATION Melatonin 5 mg 03/29/18 22:00 Melatonin PO HS PRN INSOMNIA Methadone HCl 5 mg 04/03/18 06:00 Dolophine - PO 04/03/18 06:01 ONCE@0600 ONE Methadone HCl 15 mg 04/01/18 10:00 Dolophine - PO 04/01/18 10:01 ONCE ONE Methadone HCl 10 mg 04/02/18 10:00 Dolophine - PO 04/02/18 10:01 ONCE ONE Nicotine 21 mg 03/29/18 10:00 03/31/18 10:37 Nicoderm Patch - TD 21 mg DAILY CYRUS Administration Nicotine Polacrilex 2 mg 03/29/18 00:33 03/30/18 14:34 Nicorette Gum - BC 2 mg Q2H PRN Administration NICOTINE REPLACEMENT RX Multivit/Folic Acid/Iron 1 tab 03/29/18 10:00 03/31/18 10:36 Vitamins (Sjr) - PO 1 tab DAILY CYRUS Administration Pseudoephedrine/Triprolidine 1 combo 03/29/18 00:33 Actifed - PO TID PRN NASAL CONGESTION Thiamine HCl 100 mg 03/29/18 22:00 03/31/18 22:36 Vitamin B1 - PO 100 mg HS CYRUS Administration Zolpidem Tartrate 5 mg 03/29/18 22:00 03/31/18 22:36 Ambien - PO 04/01/18 21:59 5 mg HS PRN Administration INSOMNIA Medication(s) Change(s): Yes. Will increase Ambien to 10mg. Current Side Effect: No Lab tests ordered: No Lab tests reviewed: Yes Provider note:: Pt accepted ambien 5mg last night but continues to report poor sleep. Pt. requesing an increase in ambien dose. Ambien to be increased to 10mg. Sleep hygiene provided. Benefits and side effects discussed. Pt. informed of the risk of parasomnia when accepting ambien. Verbal consent given. Total face to face time:: 25 Mental Status Exam - Mental Status Exam Alert and Oriented to: Time, Place, Person Cognitive Function: Good Patient Appearance: Well Groomed Mood: Euthymic Affect: Mood Congruent Patient Behavior: Appropriate, Cooperative Speech Pattern: Appropriate Voice Loudness: Normal Thought Process: Intact, Goal Oriented Thought Disorder: Not Present Hallucinations: Denies Suicidal Ideation: Denies Homicidal Ideation: Denies Insight/Judgement: Poor Sleep: Poorly Appetite: Fair Muscle strength/Tone: Normal Gait/Station: Normal Psychiatric Treatment Plan - Problem List (1) Insomnia Current Visit: Yes (2) Nicotine dependence Current Visit: Yes Qualifiers: Nicotine product type: cigarettes Substance use status: in withdrawal Qualified Code(s): F17.213 - Nicotine dependence, cigarettes, with withdrawal (3) Opioid dependence with withdrawal Current Visit: Yes
[2018-04-01] MEDS ORDERED: METHADONE HCL 5 MG TABLET (FOR DETOX USE ONLY) PO ONE (10:00)
[2018-04-01] MEDS: PRENATAL VITAMINS W/ FOLIC ACID TABLET (FP) PO SCH (10:19)
[2018-04-01] MEDS: NICOTINE 21 MG/24 HOURS TOPICAL PATCH TD SCH (10:20)
--- NOTE | 2018-04-01 10:27 | PN ---
BHS Progress Note (SOAP) Subjective: ANXIETY,FATIGUE, INTERMITTENT SLEEP- REPORTS AMBIEN 5 MG NOT EFFECTIVE WELL MELATONIN. Objective: 04/01/18 10:26 Vital Signs 04/01/18 04/01/18 04/01/18 03:30 06:30 06:31 Temperature 97.9 F Pulse Rate 61 Respiratory 18 18 18 Rate Blood Pressure 100/49 04/01/18 09:39 Temperature 97.8 F Pulse Rate 66 Respiratory 18 Rate Blood Pressure 90/54 Laboratory Tests 03/29/18 03/29/18 03/29/18 07:00 07:00 07:00 WBC 6.6 RBC 4.79 Hgb 14.0 Hct 40.7 MCV 85.0 MCH 29.2 MCHC 34.4 RDW 13.7 Plt Count 221 MPV 8.4 Sodium 141 Potassium 3.8 Chloride 105 Carbon Dioxide 29 Anion Gap 7 L BUN 11 Creatinine 0.8 Creat Clearance w eGFR > 60 Random Glucose 88 D Calcium 8.6 Total Bilirubin 0.3 AST 12 L D ALT 23 D Alkaline Phosphatase 66 Total Protein 6.4 Albumin 3.6 Urine Color Urine Appearance Urine pH Ur Specific [place] Urine Protein Urine Glucose (UA) Urine Ketones Urine Blood Urine Nitrite Urine Bilirubin Urine Urobilinogen Ur Leukocyte Esterase RPR Titer Nonreactive 03/30/18 16:00 WBC RBC Hgb Hct MCV MCH MCHC RDW Plt Count MPV Sodium Potassium Chloride Carbon Dioxide Anion Gap BUN Creatinine Creat Clearance w eGFR Random Glucose Calcium Total Bilirubin AST ALT Alkaline Phosphatase Total Protein Albumin Urine Color Yellow Urine Appearance Clear Urine pH 6.0 Ur Specific [place] 1.015 Urine Protein Negative Urine Glucose (UA) Negative Urine Ketones Negative Urine Blood Negative Urine Nitrite Negative Urine Bilirubin Negative Urine Urobilinogen Negative Ur Leukocyte Esterase Negative RPR Titer Assessment: 04/01/18 10:26 WITHDRAWAL SX INSOMNIA Plan: CONTINUE DETOX PSYCH TO RE-EVAL INSOMNIA MED TODAY.
[2018-04-01] MEDS: hydrOXYzine PAMOATE 50 MG CAPSULE (FP) PO PRN ×2 (13:54→22:20)
[2018-04-01] MEDS: THIAMINE HCL 100 MG TABLET (FP) PO SCH (22:20)
[2018-04-01] MEDS: ZOLPIDEM TARTRATE 10 MG TABLET (PARK CARE ONLY) PO PRN (22:20)
[2018-04-01] MEDS: IBUPROFEN 400 MG TABLET (FP) PO PRN (22:21)
[2018-04-02] MEDS: HYDROCORTISONE 1% TOPICAL CREAM 30 GM TUBE TP SCH ×3 (07:08→22:19)
[2018-04-02] MEDS ORDERED: METHADONE HCL 10 MG TABLET (FOR DETOX USE ONLY) PO ONE (10:00)
[2018-04-02] MEDS: NICOTINE 21 MG/24 HOURS TOPICAL PATCH TD SCH (10:14)
[2018-04-02] MEDS: PRENATAL VITAMINS W/ FOLIC ACID TABLET (FP) PO SCH (10:14)
[2018-04-02] MEDS: NICOTINE POLACRILEX 2 MG GUM BC PRN (10:16)
--- NOTE | 2018-04-02 10:47 | PN ---
BHS Progress Note (SOAP) Subjective: ANXIETY,FATIGUE,CHILLS BODY ACHES. Objective: 04/02/18 10:47 Vital Signs 04/02/18 04/02/18 04/02/18 03:30 06:12 06:30 Temperature 97.0 F L Pulse Rate 55 L Respiratory 18 18 18 Rate Blood Pressure 100/52 04/02/18 09:21 Temperature 98.0 F Pulse Rate 57 L Respiratory 16 Rate Blood Pressure 93/52 Laboratory Tests 03/29/18 03/29/18 03/29/18 07:00 07:00 07:00 WBC 6.6 RBC 4.79 Hgb 14.0 Hct 40.7 MCV 85.0 MCH 29.2 MCHC 34.4 RDW 13.7 Plt Count 221 MPV 8.4 Sodium 141 Potassium 3.8 Chloride 105 Carbon Dioxide 29 Anion Gap 7 L BUN 11 Creatinine 0.8 Creat Clearance w eGFR > 60 Random Glucose 88 D Calcium 8.6 Total Bilirubin 0.3 AST 12 L D ALT 23 D Alkaline Phosphatase 66 Total Protein 6.4 Albumin 3.6 Urine Color Urine Appearance Urine pH Ur Specific [place] Urine Protein Urine Glucose (UA) Urine Ketones Urine Blood Urine Nitrite Urine Bilirubin Urine Urobilinogen Ur Leukocyte Esterase RPR Titer Nonreactive 03/30/18 16:00 WBC RBC Hgb Hct MCV MCH MCHC RDW Plt Count MPV Sodium Potassium Chloride Carbon Dioxide Anion Gap BUN Creatinine Creat Clearance w eGFR Random Glucose Calcium Total Bilirubin AST ALT Alkaline Phosphatase Total Protein Albumin Urine Color Yellow Urine Appearance Clear Urine pH 6.0 Ur Specific [place] 1.015 Urine Protein Negative Urine Glucose (UA) Negative Urine Ketones Negative Urine Blood Negative Urine Nitrite Negative Urine Bilirubin Negative Urine Urobilinogen Negative Ur Leukocyte Esterase Negative RPR Titer Assessment: 04/02/18 10:47 WITHDRAWAL SX Plan: CONTINUE DETOX
[2018-04-02] MEDS: hydrOXYzine PAMOATE 50 MG CAPSULE (FP) PO PRN ×2 (15:35→22:15)
[2018-04-02] MEDS: ZOLPIDEM TARTRATE 10 MG TABLET (PARK CARE ONLY) PO PRN (22:15)
[2018-04-02] MEDS: IBUPROFEN 400 MG TABLET (FP) PO PRN (22:15)
[2018-04-02] MEDS: THIAMINE HCL 100 MG TABLET (FP) PO SCH (22:15)
[2018-04-03] MEDS ORDERED: METHADONE HCL 5 MG TABLET (FOR DETOX USE ONLY) PO ONE (06:00)
[2018-04-03] MEDS: HYDROCORTISONE 1% TOPICAL CREAM 30 GM TUBE TP SCH ×2 (06:33→14:28)
[2018-04-03 09:51] VITALS: BP 106/53; PULSE 68; TEMP 98
[2018-04-03] MEDS: NICOTINE 21 MG/24 HOURS TOPICAL PATCH TD SCH (10:55)
[2018-04-03] MEDS: PRENATAL VITAMINS W/ FOLIC ACID TABLET (FP) PO SCH (10:55)
--- NOTE | 2018-04-03 18:11 | PN ---
BHS Progress Note (SOAP) Subjective: Patient denies current Detox symptoms and reports that he feels well overall. Objective: PATIENT A & O X 3, OBSERVED AMBULATING ON UNIT. NO ACUTE DISTRESS. 04/03/18 18:10 Vital Signs Temperature 98.0 F 04/03/18 09:50 Pulse Rate 68 04/03/18 09:50 Respiratory Rate 18 04/03/18 09:50 Blood Pressure 106/53 04/03/18 09:50 O2 Sat by Pulse Oximetry (%) Laboratory Tests 03/29/18 03/29/18 03/29/18 07:00 07:00 07:00 WBC 6.6 RBC 4.79 Hgb 14.0 Hct 40.7 MCV 85.0 MCH 29.2 MCHC 34.4 RDW 13.7 Plt Count 221 MPV 8.4 Sodium 141 Potassium 3.8 Chloride 105 Carbon Dioxide 29 Anion Gap 7 L BUN 11 Creatinine 0.8 Creat Clearance w eGFR > 60 Random Glucose 88 D Calcium 8.6 Total Bilirubin 0.3 AST 12 L D ALT 23 D Alkaline Phosphatase 66 Total Protein 6.4 Albumin 3.6 Urine Color Urine Appearance Urine pH Ur Specific [place] Urine Protein Urine Glucose (UA) Urine Ketones Urine Blood Urine Nitrite Urine Bilirubin Urine Urobilinogen Ur Leukocyte Esterase RPR Titer Nonreactive 03/30/18 16:00 WBC RBC Hgb Hct MCV MCH MCHC RDW Plt Count MPV Sodium Potassium Chloride Carbon Dioxide Anion Gap BUN Creatinine Creat Clearance w eGFR Random Glucose Calcium Total Bilirubin AST ALT Alkaline Phosphatase Total Protein Albumin Urine Color Yellow Urine Appearance Clear Urine pH 6.0 Ur Specific [place] 1.015 Urine Protein Negative Urine Glucose (UA) Negative Urine Ketones Negative Urine Blood Negative Urine Nitrite Negative Urine Bilirubin Negative Urine Urobilinogen Negative Ur Leukocyte Esterase Negative RPR Titer LABS NOTED. Assessment: 04/03/18 18:10 COMPLETION OF DETOX REGIMEN. Plan: PATIENT SCHEDULED FOR DISCHARGER FROM DETOX UNIT TODAY.
--- NOTE | 2018-04-03 18:15 | DS ---
[facility] Detox Discharge Summary Admission Date: 03/28/18 Discharge Date: 04/03/18 - History Present History: Opioid Dependence Additional Comments: PATIENT WILL ATTEND OUTPATIENT SUBSTANCE USE TREATMENT PROGRAM AT [facility] (SURJIT NDagoberto) FOR AFTERCARE. PATIENT ALSO NOTES THAT HE WILL ATTEND LOCAL OUTPATIENT NA SUPPORT GROUP MEETINGS. PATIENT WAS DISCHARGED FROM DETOX UNIT IN STABLE MEDICAL CONDITION. Pertinent Past History: Insomnia, Nicotine Dependence. - Physical Exam Results Vital Signs: Vital Signs Temperature 98.0 F 04/03/18 09:50 Pulse Rate 68 04/03/18 09:50 Respiratory Rate 18 04/03/18 09:50 Blood Pressure 106/53 04/03/18 09:50 O2 Sat by Pulse Oximetry (%) Pertinent Admission Physical Exam Findings: WITHDRAWAL SYMPTOMS. Laboratory Tests 03/29/18 03/29/18 03/29/18 07:00 07:00 07:00 WBC 6.6 RBC 4.79 Hgb 14.0 Hct 40.7 MCV 85.0 MCH 29.2 MCHC 34.4 RDW 13.7 Plt Count 221 MPV 8.4 Sodium 141 Potassium 3.8 Chloride 105 Carbon Dioxide 29 Anion Gap 7 L BUN 11 Creatinine 0.8 Creat Clearance w eGFR > 60 Random Glucose 88 D Calcium 8.6 Total Bilirubin 0.3 AST 12 L D ALT 23 D Alkaline Phosphatase 66 Total Protein 6.4 Albumin 3.6 Urine Color Urine Appearance Urine pH Ur Specific [place] Urine Protein Urine Glucose (UA) Urine Ketones Urine Blood Urine Nitrite Urine Bilirubin Urine Urobilinogen Ur Leukocyte Esterase RPR Titer Nonreactive 03/30/18 16:00 WBC RBC Hgb Hct MCV MCH MCHC RDW Plt Count MPV Sodium Potassium Chloride Carbon Dioxide Anion Gap BUN Creatinine Creat Clearance w eGFR Random Glucose Calcium Total Bilirubin AST ALT Alkaline Phosphatase Total Protein Albumin Urine Color Yellow Urine Appearance Clear Urine pH 6.0 Ur Specific [place] 1.015 Urine Protein Negative Urine Glucose (UA) Negative Urine Ketones Negative Urine Blood Negative Urine Nitrite Negative Urine Bilirubin Negative Urine Urobilinogen Negative Ur Leukocyte Esterase Negative RPR Titer LABS NOTED. - Treatment Hospital Course: Detox Protocol Followed, Detoxed Safely, Responded well, Discharged Condition Good Patient has Accepted a Rehab Referral to: PT WILL ATTEND OP SUPPORT GROUP AT [facility] (Ginny EDDY). - Diagnosis (1) Insomnia Status: Acute Qualifiers: Insomnia type: unspecified Qualified Code(s): G47.00 - Insomnia, unspecified (2) Nicotine dependence Status: Acute Qualifiers: Nicotine product type: cigarettes Substance use status: in withdrawal Qualified Code(s): F17.213 - Nicotine dependence, cigarettes, with withdrawal (3) Opioid dependence with withdrawal Status: Acute (4) Opioid-induced sleep disorder Status: Suspected - AMA Did Patient Leave Against Medical Advice: No
== END 2018-04-03 13:10 | disposition home or self-care (01) | DRG 773 ==
LOC: YASAS 23:45 → Y3N 23:53
PROVIDERS: ADMIT Surgery; ATTEND Surgery
PROC: HZ2ZZZZ Detoxification Services for Substance Abuse Treatment (ICD-10-PCS; principal; 2018-03-28)
DX: F11.23 Opioid dependence with withdrawal (principal); F11.282 Opioid dependence with opioid-induced sleep disorder; F17.213 Nicotine dependence, cigarettes, with withdrawal; G47.00 Insomnia, unspecified
CPT/HCPCS: 36415; 80053; 81003; 85027; 86593; 93005; 93010

== ENCOUNTER 2018-08-13 18:21 | Inpatient (IN) | payer OTHER ==
[2018-08-13 19:05] VITALS: BMI 31.5
--- NOTE | 2018-08-13 20:21 | HP ---
"COWS - Scale Resting Pulse: 0= [place] 80 or Below Sweatin= Beads of Sweat on Face Restless Observation: 1= Difficult to Sit Still Pupil Size: 2= Moderately Dilated (Pupils = 4 mm) Bone or Joint Aches: 0= None Runny Nose/ Eye Tearin= Nasal Congestion GI Upset > 30mins: 0= None Tremor Observation: 2= Slight Tremor Visible Yawning Observation: 1= 1-2x During Session Anxiety or Irritability: 1=Feels Anxious/Irritable Goose Flesh Skin: 0=Smooth Skin COWS Score: 11 CIWA Score - Admission Criteria [facility] Guidelines: Admission for Medically Managed Detox: Requires at least one of the followin. CIWA greater than 12 2. Seizures within the past 24 hours 3. Delirium tremens within the past 24 hours 4. Hallucinations within the past 24 hours 5. Acute intervention needed for co occurring medical disorder 6. Acute intervention needed for co occurring psychiatric disorder 7. Severe withdrawal that cannot be handled at a lower level of care (continued vomiting, continued diarrhea, abnormal vital signs) requiring intravenous medication and/or fluids 8. Admission ROS [facility] Chief Complaint: Here for heroin withdrawal. Allergies/Adverse Reactions: Allergies Allergy/AdvReac Type Severity Reaction Status Date / Time No Known Allergies Allergy Verified 08/13/18 20:19 History of Present Illness: started taking percocets and oxycodone from age 16. Switched to heroin at age 21 because couldn't afford pills. Started Xanax at age 22. was a patient at [facility] Suboxone program and his Suboxone was stopped because has been having (+) heroin tox 2 days ago. Wants to be detoxed from heroin and then go to rehab. Consent signed to receive and release information to [facility] Suboxone program to notify of opiate detox. Denies seizures, overdose, blackouts. Denies significant PMH/PSH. Denies thoughts of suicide or violent ideation. Search Terms: Mulugeta Orosco, 1995 Search Date: 08/13/2018 08:04:48 PM The Drug Utilization Report below displays all of the controlled substance prescriptions, if any, that your patient has filled in the last twelve months. The information displayed on this report is compiled from pharmacy submissions to the Department, and accurately reflects the information as submitted by the pharmacies. This report was requested by: Cynthia Randall | Reference #: [id number] Others' Prescriptions Patient Name: Mulugeta Orosco Date: 1995 [address]: [address] [place], [place] [address] [address] Sex: Male Rx Written Rx Dispensed Drug Quantity Days Supply Prescriber Name 07/28/2018 07/29/2018 suboxone 8 mg-2 mg sl film 45 15 Malcom Bhatia MD 06/29/2018 06/29/2018 suboxone 8 mg-2 mg sl film 90 30 Malcom Bhatia MD 06/16/2018 06/16/2018 suboxone 8 mg-2 mg sl film 45 15 Wang Bedoya MD 06/01/2018 06/01/2018 suboxone 8 mg-2 mg sl film 60 30 Wang Bedoya MD 05/18/2018 05/18/2018 suboxone 8 mg-2 mg sl film 15 15 Wang Bedoya MD 05/04/2018 05/05/2018 suboxone 8 mg-2 mg sl film 10 10 Dread Meyer Patient Name: Mulugeta Orosco Date: 1995 Address: [place] [address] Sex: Male Rx Written Rx Dispensed Drug Quantity Days Supply Prescriber Name 05/28/2018 05/28/2018 acetaminophen-cod #3 tablet 20 3 Kody Ceballos (DDS) 05/11/2018 05/11/2018 acetaminophen-cod #3 tablet 20 5 Reuben Arroyo Exam Limitations: No Limitations - Ebola screening Have you traveled outside of the country in the last 21 days: No Have you had contact with anyone from an Ebola affected area: No Have you been sick,other than usual withdrawal symptoms: No Do you have a fever: No - Review of Systems Constitutional: Chills, Diaphoresis, Changes in sleep (Difficulty falling asleep ) EENT: reports: Blurred Vision, Nose Congestion Respiratory: reports: No Symptoms reported Cardiac: reports: No Symptoms Reported GI: reports: Constipated : reports: No Symptoms Reported Musculoskeletal: reports: No Symptoms Reported Integumentary: reports: No Symptoms Reported Neuro: reports: Numbness (When hands or feet get cold), Tremors Endocrine: reports: Intolerance to Cold Hematology: reports: No Symptoms Reported Psychiatric: reports: Judgement Intact, Mood/Affect Appropiate, Orientated x3 ( Missed by 1 day), Agitated, Anxious, Depressed (Denies thoughts of harming self or others) Patient History - Patient Medical History Hx Anemia: No Hx Asthma: No Hx Chronic Obstructive Pulmonary Disease (COPD): No Hx Cancer: No Hx Cardiac Disorders: No Hx Congestive Heart Failure: No Hx Hypertension: No Hx Hypercholesterolemia: No Hx Pacemaker: No HX Cerebrovascular Accident: No Hx Seizures: No Hx Dementia: No Hx Diabetes: No Hx Gastrointestinal Disorders: No Hx Liver Disease: No Hx Genitourinary Disorders: No Hx Sexually Transmitted Disorders: No Hx Renal Disease (ESRD): No Hx Thyroid Disease: No Hx Human Immunodeficiency Virus (HIV): No (2018) Hx Hepatitis C: No Hx Depression: No Hx Suicide Attempt: No Hx Bipolar Disorder: No Hx Schizophrenia: No - Patient Surgical History Past Surgical History: No Hx Neurologic Surgery: No Hx Cataract Extraction: No Hx Cardiac Surgery: No Hx Lung Surgery: No Hx Breast Surgery: No Hx Breast Biopsy: No Hx Abdominal Surgery: No Hx Appendectomy: No Hx Cholecystectomy: No Hx Genitourinary Surgery: No Hx Section: No Hx Orthopedic Surgery: No Anesthesia Reaction: No - PPD History Previous Implant?: Yes Documented Results: Negative w/proof Implanted On Prior R Admission?: Yes Date: 03/25/17 Results: 0 mm PPD to be Administered?: Yes - Smoking Cessation Smoking history: Current every day smoker Have you smoked in the past 12 months: Yes Aproximately how many cigarettes per day: 10 Cigars Per Day: 0 Hx Chewing Tobacco Use: No Initiated information on smoking cessation: Yes 'Breaking Loose' booklet given: 08/13/18 - Substance & Tx. History Hx Alcohol Use: No Hx Substance Use: Yes Substance Use Type: Heroin, Tranquilizers - Substances Abused Heroin Route: SNIFFING Frequency: Daily Amount used: 6 BAGS Age of first use: 21 Date of Last Use: 08/13/18 Alprazolam (Xanax) Route: Oral Frequency: 1-3 times last 30 days Amount used: 1MG Age of first use: 22 Date of Last Use: 08/11/18 Family Disease History - Family Disease History Family Disease History: Diabetes: Grandparent (HTN,THYROID), Heart Disease: Grandparent, CA: Grandparent, Father (THROAT) Admission Physical Exam BHS - Vital Signs Vital Signs: Vital Signs - 24 hr 08/13/18 19:01 Temperature 97.9 F Pulse Rate 68 Respiratory 18 Rate Blood Pressure 112/59 L - Physical General Appearance: Yes: Mild Distress, Tremorous, Irritable, Sweating, Anxious HEENTM: Yes: EOMI ((+) jerking of eyes on lateral gaze), Hearing grossly Normal , Normal Voice, BRANDIE Respiratory: Yes: No Respiratory Distress, Wheezing (Jw insp wheeze. Noisy, non -productive cough.) Neck: Yes: No masses,lesions,Nodules, Supple Breast: Yes: Breast Exam Deferred Cardiology: Yes: Regular Rhythm, Regular Rate, S1, S2 Abdominal: Yes: Non Tender, Soft, Protuberent (Increased abdominal adiposity) Genitourinary: Yes: Within Normal Limits Back: Yes: Normal Inspection Musculoskeletal: Yes: full range of Motion, Gait Steady Extremities: Yes: Normal Capillary Refill Neurological: Yes: Alert, Motor Strength 5/5, Normal Mood/Affect, Normal Response Integumentary: Yes: Normal Color, Dry (Decreased skin turgor), Warm Lymphatic: Yes: Within Normal Limits - Diagnostic (1) Wheezing Current Visit: Yes Status: Acute Comment: Noisy, non-productive cough. No rales or rhonchi (2) Nicotine dependence Current Visit: Yes Status: Chronic Qualifiers: Nicotine product type: cigarettes Substance use status: in withdrawal Qualified Code(s): F17.213 - Nicotine dependence, cigarettes, with withdrawal (3) Opioid dependence with withdrawal Current Visit: Yes Status: Acute (4) Sedative hypnotic or anxiolytic dependence Current Visit: Yes Status: Acute (5) Dehydration Current Visit: Yes Status: Acute Cleared for Admission [facility] - Detox or Rehab [facility] Level of Care: Medically Supervised Detox Regimen/Protocol: Methadone [facility] Breath Alcohol Content Breath Alcohol Content: 0 Urine Drug Screen - Results Urine Drug Screen Results: THC-Marijuana, OPI-Opiates, BZO-Benzodiazepines, OXY- Oxycodone"
[2018-08-13] MEDS ORDERED: MAGNESIUM HYDROX 2400MG/30ML ORAL SUSPENSION 30 ML CUP PO PRN (20:57)
[2018-08-13] MEDS ORDERED: NICOTINE POLACRILEX 2 MG GUM BUC PRN (20:57)
[2018-08-13] MEDS ORDERED: MENTHOL/PHENOL 1 EACH UD MM PRN (20:57)
[2018-08-13] MEDS ORDERED: MAGNESIUM CITRATE 300 ML BOTTLE PO PRN (20:57)
[2018-08-13] MEDS ORDERED: diazePAM 5 MG TABLET PO ONE (20:57)
[2018-08-13] MEDS ORDERED: METHADONE HCL 10 MG TABLET (FOR DETOX USE ONLY) PO ONE ×2 (20:57→23:00)
[2018-08-13] MEDS ORDERED: ACETAMINOPHEN 325 MG TABLET (FP) PO PRN (20:57)
[2018-08-13] MEDS ORDERED: MAG HYDROX/AL HYDROX/SIMETH 30 ML UNIT-DOSE CUP PO PRN (20:57)
[2018-08-13] MEDS ORDERED: IBUPROFEN 400 MG TABLET (FP) PO PRN (20:57)
[2018-08-13] MEDS ORDERED: LOPERAMIDE HCL 2 MG CAPSULE PO PRN (20:57)
[2018-08-13] MEDS ORDERED: ALBUTEROL SO4 0.083% IH SOL 2.5 MG/3 ML VIAL.NEB. NEB PRN (21:00)
[2018-08-13] MEDS ORDERED: ALBUTEROL SO4 0.083% IH SOL 2.5 MG/3 ML VIAL.NEB. NEB ONE (21:02)
[2018-08-13] MEDS ORDERED: guaiFENesin 200 MG/10 ML 10 ML UNIT-DOSE CUPS PO SCH (21:15)
[2018-08-13] MEDS: THIAMINE HCL 100 MG TABLET (FP) PO SCH (22:24)
[2018-08-13] MEDS: diazePAM 5 MG TABLET PO SCH (22:54)
[2018-08-13 23:16] LABS: URINE APPEARANCE CLEAR; URINE BILIRUBIN NEGATIVE (<2.0 mg/dL); URINE COLOR LTYELLOW; URINE GLUCOSE (UA) NEGATIVE (NEGATIVE); URINE KETONE NEGATIVE (NEGATIVE); URINE LEUK ESTERASE NEGATIVE (NEGATIVE); URINE NITRITE NEGATIVE (NEGATIVE); URINE PROTEIN NEGATIVE (NEGATIVE); URINE UROBILINOGEN NEGATIVE mg/dL (0.2-1.0)
[2018-08-14] MEDS: diazePAM 5 MG TABLET PO SCH ×3 (05:46→22:36)
[2018-08-14] MEDS: guaiFENesin 200 MG/10 ML 10 ML UNIT-DOSE CUPS PO SCH ×4 (05:47→23:52)
[2018-08-14] MEDS ORDERED: METHADONE HCL 10 MG TABLET (FOR DETOX USE ONLY) PO SCH (10:00)
[2018-08-14] MEDS: PRENATAL VITAMINS W/ FOLIC ACID TABLET (FP) PO SCH (10:27)
[2018-08-14] MEDS: diazePAM 5 MG TABLET PO PRN ×2 (10:28→22:28)
[2018-08-14] MEDS: NICOTINE 14 MG/24 HOURS TOPICAL PATCH TD SCH (10:28)
[2018-08-14 10:57] LABS: HEMATOCRIT 42.6 % (35.4-49); HEMOGLOBIN 14.2 GM/dL (11.7-16.9); MCH 27.9 pg (25.7-33.7); MCHC 33.3 g/dl (32.0-35.9); MEAN CELL VOLUME 83.6 fl (80-96); MEAN PLT VOLUME 8.4 fl (7.5-11.1); PLATELET COUNT 236 K/MM3 (134-434); RDW 13.6 % (11.9-15.9); WHITE BLOOD COUNT 6.7 K/mm3 (4.0-10.0)
[2018-08-14 11:05] LABS: ALBUMIN 3.8 g/dl (3.4-5.0); ALK PHOS 71 U/L (45-117); ANION GAP 6 MMOL/L (8-16); BILIRUBIN,TOTAL 0.4 mg/dL (0.2-1); BLOOD UREA NITROGEN 12 mg/dL (7-18); CALCIUM 8.8 mg/dL (8.5-10.1); CHLORIDE 104 mmol/L (98-107); CO2 28 mmol/L (21-32); CREATININE 0.8 mg/dL (0.55-1.3); GLUCOSE,RANDOM 94 mg/dL (74-106); POTASSIUM 4.1 mmol/L (3.5-5.1); SGOT/AST 15 U/L (15-37); SGPT/ALT 28 U/L (13-61); SODIUM 138 mmol/L (136-145); TOT PROT 7.1 g/dl (6.4-8.2)
--- NOTE | 2018-08-14 11:37 | PN ---
BHS COWS - Scale Resting Pulse: 0= [place] 80 or Below Sweatin= No chills or Flushing Restless Observation: 0= Sits Still Pupil Size: 1= Pupils >than Normal Bone or Joint Aches: 0= None Runny Nose/ Eye Tearin= None GI Upset > 30mins: 2= Nausea/Diarrhea (NO diarrhea) Tremor Observation of Outstretched Hands: 1= Tremor [place], Not Seen Yawning Observation: 0= None Anxiety or Irritability: 1=Feels Anxious/Irritable Goose Flesh Skin: 0=Smooth Skin COWS Score: 5 BHS Progress Note (SOAP) Subjective: C/o mild nausea w/o vomiting. Denies SOB. Mild anxiety. Denies chills/flushing. Objective: A&O x 3. Abd S/NT. BS+; Mild tremors felt in hands. Mild facial moisture. Lungs CTA. Vital Signs 08/14/18 08/14/18 06:00 10:34 Temperature 97.7 F 98.4 F Pulse Rate 58 L 60 Respiratory 20 16 Rate Blood Pressure 106/50 L 116/54 L Laboratory Last Values WBC 6.7 K/mm3 (4.0-10.0) 08/14/18 07:50 RBC 5.10 M/mm3 (4.00-5.60) 08/14/18 07:50 Hgb 14.2 GM/dL (11.7-16.9) 08/14/18 07:50 Hct 42.6 % (35.4-49) 08/14/18 07:50 MCV 83.6 fl (80-96) 08/14/18 07:50 MCH 27.9 pg (25.7-33.7) 08/14/18 07:50 MCHC 33.3 g/dl (32.0-35.9) 08/14/18 07:50 RDW 13.6 % (11.9-15.9) 08/14/18 07:50 Plt Count 236 K/MM3 (134-434) 08/14/18 07:50 MPV 8.4 fl (7.5-11.1) 08/14/18 07:50 Sodium 138 mmol/L (136-145) 08/14/18 07:50 Potassium 4.1 mmol/L (3.5-5.1) 08/14/18 07:50 Chloride 104 mmol/L (98-107) 08/14/18 07:50 Carbon Dioxide 28 mmol/L (21-32) 08/14/18 07:50 Anion Gap 6 MMOL/L (8-16) L 08/14/18 07:50 BUN 12 mg/dL (7-18) 08/14/18 07:50 Creatinine 0.8 mg/dL (0.55-1.3) 08/14/18 07:50 Creat Clearance w eGFR > 60 (>60) 08/14/18 07:50 Random Glucose 94 mg/dL (74-106) 08/14/18 07:50 Calcium 8.8 mg/dL (8.5-10.1) 08/14/18 07:50 Total Bilirubin 0.4 mg/dL (0.2-1) 08/14/18 07:50 AST 15 U/L (15-37) 08/14/18 07:50 ALT 28 U/L (13-61) 08/14/18 07:50 Alkaline Phosphatase 71 U/L (45-117) 08/14/18 07:50 Total Protein 7.1 g/dl (6.4-8.2) 08/14/18 07:50 Albumin 3.8 g/dl (3.4-5.0) 08/14/18 07:50 Urine Color Ltyellow 08/13/18 23:00 Urine Appearance Clear 08/13/18 23:00 Urine pH 7.0 (5.0-8.0) 08/13/18 23:00 Ur Specific [place] 1.017 (1.010-1.035) 08/13/18 23:00 Urine Protein Negative (NEGATIVE) 08/13/18 23:00 Urine Glucose (UA) Negative (NEGATIVE) 08/13/18 23:00 Urine Ketones Negative (NEGATIVE) 08/13/18 23:00 Urine Blood Negative (NEGATIVE) 08/13/18 23:00 Urine Nitrite Negative (NEGATIVE) 08/13/18 23:00 Urine Bilirubin Negative (<2.0 mg/dL) 08/13/18 23:00 Urine Urobilinogen Negative mg/dL (0.2-1.0) 08/13/18 23:00 Ur Leukocyte Esterase Negative (NEGATIVE) 08/13/18 23:00 Labs reviewed. Assessment: Withdrawal symptoms. Wheezing resolved. Plan: Continue detox. Encouraged increased water intake.
--- NOTE | 2018-08-14 17:32 | EKG ---
Test Reason : Blood Pressure : / mmHG Vent. Rate : 063 BPM Atrial Rate : 063 BPM P-R Int : 162 ms QRS Dur : 098 ms QT Int : 402 ms P-R-T Axes : 053 048 043 degrees QTc Int : 411 ms NORMAL SINUS RHYTHM NORMAL ECG WHEN COMPARED WITH ECG OF 29-MAR-2018 00:48, NO SIGNIFICANT CHANGE WAS FOUND Confirmed by MD JENNIFFER, PRERNA ([id number]) on 08/14/2018 5:32:16 PM Referred By: Confirmed By:PRERNA ABAD MD
[2018-08-14] MEDS: THIAMINE HCL 100 MG TABLET (FP) PO SCH (22:28)
[2018-08-14] MEDS: MELATONIN 5 MG TABLETS PO PRN (22:28)
[2018-08-15] MEDS: guaiFENesin 200 MG/10 ML 10 ML UNIT-DOSE CUPS PO SCH ×3 (05:08→19:13)
[2018-08-15] MEDS: METHADONE HCL 5 MG TABLET (FOR DETOX USE ONLY) PO SCH (10:42)
[2018-08-15] MEDS: PRENATAL VITAMINS W/ FOLIC ACID TABLET (FP) PO SCH (10:42)
[2018-08-15] MEDS: diazePAM 5 MG TABLET PO SCH ×2 (10:42→22:34)
[2018-08-15] MEDS: NICOTINE 14 MG/24 HOURS TOPICAL PATCH TD SCH (10:42)
--- NOTE | 2018-08-15 12:58 | PN ---
[facility] CIWA - CIWA Score Nausea/Vomitin-No Nausea/No Vomiting Muscle Tremors: 3 Anxiety: 3 Agitation: 3 Paroxysmal Sweats: 1-Minimal Palms Moist Orientation: 0-Oriented Tacttile Disturbances: 0-None Auditory Disturbances: 0-None Visual Disturbances: 0-None Headache: 1-Very Mild CIWA-Ar Total Score: 11 BHS COWS - Scale Resting Pulse: 0= [place] 80 or Below Sweatin= Chills/Flushing Restless Observation: 0= Sits Still Pupil Size: 0= Normal to Room Light Bone or Joint Aches: 1= Mild Discomfort Runny Nose/ Eye Tearin= Nasal Congestion GI Upset > 30mins: 1= Stomach Cramp Tremor Observation of Outstretched Hands: 1= Tremor [place], Not Seen Yawning Observation: 1= 1-2x During Session Anxiety or Irritability: 1=Feels Anxious/Irritable Goose Flesh Skin: 0=Smooth Skin COWS Score: 7 [facility] Progress Note (SOAP) Subjective: sweat body aches tremor restlessness trouble sleep at night Objective: 08/15/18 12:58 Vital Signs Temperature 98.2 F 08/15/18 10:00 Pulse Rate 61 08/15/18 10:00 Respiratory Rate 18 08/15/18 10:00 Blood Pressure 129/65 08/15/18 10:00 O2 Sat by Pulse Oximetry (%) Laboratory Last Values WBC 6.7 K/mm3 (4.0-10.0) 08/14/18 07:50 RBC 5.10 M/mm3 (4.00-5.60) 08/14/18 07:50 Hgb 14.2 GM/dL (11.7-16.9) 08/14/18 07:50 Hct 42.6 % (35.4-49) 08/14/18 07:50 MCV 83.6 fl (80-96) 08/14/18 07:50 MCH 27.9 pg (25.7-33.7) 08/14/18 07:50 MCHC 33.3 g/dl (32.0-35.9) 08/14/18 07:50 RDW 13.6 % (11.9-15.9) 08/14/18 07:50 Plt Count 236 K/MM3 (134-434) 08/14/18 07:50 MPV 8.4 fl (7.5-11.1) 08/14/18 07:50 Sodium 138 mmol/L (136-145) 08/14/18 07:50 Potassium 4.1 mmol/L (3.5-5.1) 08/14/18 07:50 Chloride 104 mmol/L (98-107) 08/14/18 07:50 Carbon Dioxide 28 mmol/L (21-32) 08/14/18 07:50 Anion Gap 6 MMOL/L (8-16) L 08/14/18 07:50 BUN 12 mg/dL (7-18) 08/14/18 07:50 Creatinine 0.8 mg/dL (0.55-1.3) 08/14/18 07:50 Creat Clearance w eGFR > 60 (>60) 08/14/18 07:50 Random Glucose 94 mg/dL (74-106) 08/14/18 07:50 Calcium 8.8 mg/dL (8.5-10.1) 08/14/18 07:50 Total Bilirubin 0.4 mg/dL (0.2-1) 08/14/18 07:50 AST 15 U/L (15-37) 08/14/18 07:50 ALT 28 U/L (13-61) 08/14/18 07:50 Alkaline Phosphatase 71 U/L (45-117) 08/14/18 07:50 Total Protein 7.1 g/dl (6.4-8.2) 08/14/18 07:50 Albumin 3.8 g/dl (3.4-5.0) 08/14/18 07:50 Urine Color Ltyellow 08/13/18 23:00 Urine Appearance Clear 08/13/18 23:00 Urine pH 7.0 (5.0-8.0) 08/13/18 23:00 Ur Specific [place] 1.017 (1.010-1.035) 08/13/18 23:00 Urine Protein Negative (NEGATIVE) 08/13/18 23:00 Urine Glucose (UA) Negative (NEGATIVE) 08/13/18 23:00 Urine Ketones Negative (NEGATIVE) 08/13/18 23:00 Urine Blood Negative (NEGATIVE) 08/13/18 23:00 Urine Nitrite Negative (NEGATIVE) 08/13/18 23:00 Urine Bilirubin Negative (<2.0 mg/dL) 08/13/18 23:00 Urine Urobilinogen Negative mg/dL (0.2-1.0) 08/13/18 23:00 Ur Leukocyte Esterase Negative (NEGATIVE) 08/13/18 23:00 RPR Titer Nonreactive (NONREACTIVE) 08/14/18 07:50 lab noted Assessment: 08/15/18 12:58 withdrawal sx Plan: continue detox
[2018-08-15] MEDS ORDERED: BACLOFEN 10 MG TABLET (FP) PO ONE (12:59)
[2018-08-15] MEDS: diazePAM 5 MG TABLET PO PRN (13:34)
[2018-08-15] MEDS: THIAMINE HCL 100 MG TABLET (FP) PO SCH (22:34)
[2018-08-15] MEDS: MELATONIN 5 MG TABLETS PO PRN (22:34)
[2018-08-16] MEDS: PRENATAL VITAMINS W/ FOLIC ACID TABLET (FP) PO SCH (10:10)
[2018-08-16] MEDS: METHADONE HCL 5 MG TABLET (FOR DETOX USE ONLY) PO SCH (10:10)
[2018-08-16] MEDS: diazePAM 5 MG TABLET PO SCH ×2 (10:10→22:08)
[2018-08-16] MEDS: NICOTINE 14 MG/24 HOURS TOPICAL PATCH TD SCH (10:11)
--- NOTE | 2018-08-16 14:46 | PN ---
BHS Progress Note (SOAP) Subjective: restlessness anxiety body ache joints pain Objective: 08/16/18 14:45 Vital Signs Temperature 98.1 F 08/16/18 13:51 Pulse Rate 51 L 08/16/18 13:51 Respiratory Rate 16 08/16/18 13:51 Blood Pressure 100/51 L 08/16/18 13:51 O2 Sat by Pulse Oximetry (%) Laboratory Last Values WBC 6.7 K/mm3 (4.0-10.0) 08/14/18 07:50 RBC 5.10 M/mm3 (4.00-5.60) 08/14/18 07:50 Hgb 14.2 GM/dL (11.7-16.9) 08/14/18 07:50 Hct 42.6 % (35.4-49) 08/14/18 07:50 MCV 83.6 fl (80-96) 08/14/18 07:50 MCH 27.9 pg (25.7-33.7) 08/14/18 07:50 MCHC 33.3 g/dl (32.0-35.9) 08/14/18 07:50 RDW 13.6 % (11.9-15.9) 08/14/18 07:50 Plt Count 236 K/MM3 (134-434) 08/14/18 07:50 MPV 8.4 fl (7.5-11.1) 08/14/18 07:50 Sodium 138 mmol/L (136-145) 08/14/18 07:50 Potassium 4.1 mmol/L (3.5-5.1) 08/14/18 07:50 Chloride 104 mmol/L (98-107) 08/14/18 07:50 Carbon Dioxide 28 mmol/L (21-32) 08/14/18 07:50 Anion Gap 6 MMOL/L (8-16) L 08/14/18 07:50 BUN 12 mg/dL (7-18) 08/14/18 07:50 Creatinine 0.8 mg/dL (0.55-1.3) 08/14/18 07:50 Creat Clearance w eGFR > 60 (>60) 08/14/18 07:50 Random Glucose 94 mg/dL (74-106) 08/14/18 07:50 Calcium 8.8 mg/dL (8.5-10.1) 08/14/18 07:50 Total Bilirubin 0.4 mg/dL (0.2-1) 08/14/18 07:50 AST 15 U/L (15-37) 08/14/18 07:50 ALT 28 U/L (13-61) 08/14/18 07:50 Alkaline Phosphatase 71 U/L (45-117) 08/14/18 07:50 Total Protein 7.1 g/dl (6.4-8.2) 08/14/18 07:50 Albumin 3.8 g/dl (3.4-5.0) 08/14/18 07:50 Urine Color Ltyellow 08/13/18 23:00 Urine Appearance Clear 08/13/18 23:00 Urine pH 7.0 (5.0-8.0) 08/13/18 23:00 Ur Specific [place] 1.017 (1.010-1.035) 08/13/18 23:00 Urine Protein Negative (NEGATIVE) 08/13/18 23:00 Urine Glucose (UA) Negative (NEGATIVE) 08/13/18 23:00 Urine Ketones Negative (NEGATIVE) 08/13/18 23:00 Urine Blood Negative (NEGATIVE) 08/13/18 23:00 Urine Nitrite Negative (NEGATIVE) 08/13/18 23:00 Urine Bilirubin Negative (<2.0 mg/dL) 08/13/18 23:00 Urine Urobilinogen Negative mg/dL (0.2-1.0) 08/13/18 23:00 Ur Leukocyte Esterase Negative (NEGATIVE) 08/13/18 23:00 RPR Titer Nonreactive (NONREACTIVE) 08/14/18 07:50 lab noted Assessment: 08/16/18 14:45 withdrawal sx Plan: continue detox
[2018-08-16] MEDS: THIAMINE HCL 100 MG TABLET (FP) PO SCH (22:08)
[2018-08-17 09:13] VITALS: BP 134/75; PULSE 76; TEMP 97.5
[2018-08-17] MEDS ORDERED: hydrOXYzine PAMOATE 25 MG CAPSULE (FP) PO ONE (09:30)
[2018-08-17] MEDS ORDERED: METHADONE HCL 10 MG TABLET (FOR DETOX USE ONLY) PO SCH (10:00)
[2018-08-17] MEDS ORDERED: diazePAM 5 MG TABLET PO SCH (10:00)
--- NOTE | 2018-08-17 10:15 | PN ---
S Progress Note (SOAP) Subjective: feeling better no body aches no tremor sleep better at night less sweat patient is doing well with opiate addiction that wants to continue suboxone with vinceloise's history of vivitrol IM but relapsed and currently detox from benzo and is doing well discuss aftercare and set personal goal in life Objective: 08/17/18 10:14 Vital Signs Temperature 97.5 F L 08/17/18 09:12 Pulse Rate 76 08/17/18 09:12 Respiratory Rate 18 08/17/18 09:12 Blood Pressure 134/75 08/17/18 09:12 O2 Sat by Pulse Oximetry (%) Laboratory Last Values WBC 6.7 K/mm3 (4.0-10.0) 08/14/18 07:50 RBC 5.10 M/mm3 (4.00-5.60) 08/14/18 07:50 Hgb 14.2 GM/dL (11.7-16.9) 08/14/18 07:50 Hct 42.6 % (35.4-49) 08/14/18 07:50 MCV 83.6 fl (80-96) 08/14/18 07:50 MCH 27.9 pg (25.7-33.7) 08/14/18 07:50 MCHC 33.3 g/dl (32.0-35.9) 08/14/18 07:50 RDW 13.6 % (11.9-15.9) 08/14/18 07:50 Plt Count 236 K/MM3 (134-434) 08/14/18 07:50 MPV 8.4 fl (7.5-11.1) 08/14/18 07:50 Sodium 138 mmol/L (136-145) 08/14/18 07:50 Potassium 4.1 mmol/L (3.5-5.1) 08/14/18 07:50 Chloride 104 mmol/L (98-107) 08/14/18 07:50 Carbon Dioxide 28 mmol/L (21-32) 08/14/18 07:50 Anion Gap 6 MMOL/L (8-16) L 08/14/18 07:50 BUN 12 mg/dL (7-18) 08/14/18 07:50 Creatinine 0.8 mg/dL (0.55-1.3) 08/14/18 07:50 Creat Clearance w eGFR > 60 (>60) 08/14/18 07:50 Random Glucose 94 mg/dL (74-106) 08/14/18 07:50 Calcium 8.8 mg/dL (8.5-10.1) 08/14/18 07:50 Total Bilirubin 0.4 mg/dL (0.2-1) 08/14/18 07:50 AST 15 U/L (15-37) 08/14/18 07:50 ALT 28 U/L (13-61) 08/14/18 07:50 Alkaline Phosphatase 71 U/L (45-117) 08/14/18 07:50 Total Protein 7.1 g/dl (6.4-8.2) 08/14/18 07:50 Albumin 3.8 g/dl (3.4-5.0) 08/14/18 07:50 Urine Color Ltyellow 08/13/18 23:00 Urine Appearance Clear 08/13/18 23:00 Urine pH 7.0 (5.0-8.0) 08/13/18 23:00 Ur Specific [place] 1.017 (1.010-1.035) 08/13/18 23:00 Urine Protein Negative (NEGATIVE) 08/13/18 23:00 Urine Glucose (UA) Negative (NEGATIVE) 08/13/18 23:00 Urine Ketones Negative (NEGATIVE) 08/13/18 23:00 Urine Blood Negative (NEGATIVE) 08/13/18 23:00 Urine Nitrite Negative (NEGATIVE) 08/13/18 23:00 Urine Bilirubin Negative (<2.0 mg/dL) 08/13/18 23:00 Urine Urobilinogen Negative mg/dL (0.2-1.0) 08/13/18 23:00 Ur Leukocyte Esterase Negative (NEGATIVE) 08/13/18 23:00 RPR Titer Nonreactive (NONREACTIVE) 08/14/18 07:50 lab noted Assessment: 08/17/18 10:14 mild withdrawal sx Plan: medically supervised detox
[2018-08-17] MEDS: PRENATAL VITAMINS W/ FOLIC ACID TABLET (FP) PO SCH (10:27)
[2018-08-17] MEDS: NICOTINE 14 MG/24 HOURS TOPICAL PATCH TD SCH (10:28)
--- NOTE | 2018-08-17 10:43 | DS ---
[facility] Detox Discharge Summary Admission Date: 08/13/18 Discharge Date: 08/17/18 - History Present History: Opioid Dependence, Sedative Dependence Additional Comments: 22 years old male admitted on 08/13/18 for alcohol and opiate withdrawal sx patient preferred to begin rehab at [facility] today that mother will pick him up and drive him to [facility] patient is alert oriented x 3 no acute distress - Physical Exam Results Vital Signs: Vital Signs Temperature 97.5 F L 08/17/18 09:12 Pulse Rate 76 08/17/18 09:12 Respiratory Rate 18 08/17/18 09:12 Blood Pressure 134/75 08/17/18 09:12 O2 Sat by Pulse Oximetry (%) Pertinent Admission Physical Exam Findings: alcohol and opiate withdrawal sx Vital Signs Temperature 97.5 F L 08/17/18 09:12 Pulse Rate 76 08/17/18 09:12 Respiratory Rate 18 08/17/18 09:12 Blood Pressure 134/75 08/17/18 09:12 O2 Sat by Pulse Oximetry (%) Laboratory Last Values WBC 6.7 K/mm3 (4.0-10.0) 08/14/18 07:50 RBC 5.10 M/mm3 (4.00-5.60) 08/14/18 07:50 Hgb 14.2 GM/dL (11.7-16.9) 08/14/18 07:50 Hct 42.6 % (35.4-49) 08/14/18 07:50 MCV 83.6 fl (80-96) 08/14/18 07:50 MCH 27.9 pg (25.7-33.7) 08/14/18 07:50 MCHC 33.3 g/dl (32.0-35.9) 08/14/18 07:50 RDW 13.6 % (11.9-15.9) 08/14/18 07:50 Plt Count 236 K/MM3 (134-434) 08/14/18 07:50 MPV 8.4 fl (7.5-11.1) 08/14/18 07:50 Sodium 138 mmol/L (136-145) 08/14/18 07:50 Potassium 4.1 mmol/L (3.5-5.1) 08/14/18 07:50 Chloride 104 mmol/L (98-107) 08/14/18 07:50 Carbon Dioxide 28 mmol/L (21-32) 08/14/18 07:50 Anion Gap 6 MMOL/L (8-16) L 08/14/18 07:50 BUN 12 mg/dL (7-18) 08/14/18 07:50 Creatinine 0.8 mg/dL (0.55-1.3) 08/14/18 07:50 Creat Clearance w eGFR > 60 (>60) 08/14/18 07:50 Random Glucose 94 mg/dL (74-106) 08/14/18 07:50 Calcium 8.8 mg/dL (8.5-10.1) 08/14/18 07:50 Total Bilirubin 0.4 mg/dL (0.2-1) 08/14/18 07:50 AST 15 U/L (15-37) 08/14/18 07:50 ALT 28 U/L (13-61) 08/14/18 07:50 Alkaline Phosphatase 71 U/L (45-117) 08/14/18 07:50 Total Protein 7.1 g/dl (6.4-8.2) 08/14/18 07:50 Albumin 3.8 g/dl (3.4-5.0) 08/14/18 07:50 Urine Color Ltyellow 08/13/18 23:00 Urine Appearance Clear 08/13/18 23:00 Urine pH 7.0 (5.0-8.0) 08/13/18 23:00 Ur Specific [place] 1.017 (1.010-1.035) 08/13/18 23:00 Urine Protein Negative (NEGATIVE) 08/13/18 23:00 Urine Glucose (UA) Negative (NEGATIVE) 08/13/18 23:00 Urine Ketones Negative (NEGATIVE) 08/13/18 23:00 Urine Blood Negative (NEGATIVE) 08/13/18 23:00 Urine Nitrite Negative (NEGATIVE) 08/13/18 23:00 Urine Bilirubin Negative (<2.0 mg/dL) 08/13/18 23:00 Urine Urobilinogen Negative mg/dL (0.2-1.0) 08/13/18 23:00 Ur Leukocyte Esterase Negative (NEGATIVE) 08/13/18 23:00 RPR Titer Nonreactive (NONREACTIVE) 08/14/18 07:50 lab noted - Treatment Hospital Course: Detox Protocol Followed, Detoxed Safely, Responded well, Discharged Condition Good, Rehab Referral Accepted Patient has Accepted a Rehab Referral to: [facility] - Medication Discharge Medications: Ambulatory Orders Buprenorphine/Naloxone [Suboxone 8Mg/2Mg Sl Film -] 1 each SL Q8H 08/15/18 - Diagnosis (1) Opioid dependence with withdrawal Status: Acute (2) Sedative hypnotic or anxiolytic dependence Status: Acute (3) Nicotine dependence Status: Acute Qualifiers: Nicotine product type: cigarettes Substance use status: in withdrawal Qualified Code(s): F17.213 - Nicotine dependence, cigarettes, with withdrawal - AMA Did Patient Leave Against Medical Advice: No
[2018-08-18] MEDS ORDERED: METHADONE HCL 5 MG TABLET (FOR DETOX USE ONLY) PO SCH (06:00)
== END 2018-08-17 11:02 | disposition home or self-care (01) | DRG 773 ==
LOC: YASAS 18:21 → Y6N 20:58
PROC: HZ2ZZZZ Detoxification Services for Substance Abuse Treatment (ICD-10-PCS; principal; 2018-08-13)
DX: F11.23 Opioid dependence with withdrawal (principal); F10.230 Alcohol dependence with withdrawal, uncomplicated; F13.230 Sedative, hypnotic or anxiolytic dependence with withdrawal, uncomplicated; F17.213 Nicotine dependence, cigarettes, with withdrawal; E86.0 Dehydration; R06.2 Wheezing
CPT/HCPCS: 36415; 80053; 81003; 85027; 86593; 93005; 93010; J0475

== ENCOUNTER 2018-10-26 08:28 | Inpatient (IN) | payer OTHER ==
[2018-10-26 09:19] VITALS: BMI 30.7
--- NOTE | 2018-10-26 10:31 | HP ---
COWS - Scale Resting Pulse: 1= [place] 81-100 Sweatin=Flushed/Facial Moisture Restless Observation: 1= Difficult to Sit Still Pupil Size: 1= Pupils >than Normal Bone or Joint Aches: 2= Severe Diffuse Aches Runny Nose/ Eye Tearin= None GI Upset > 30mins: 1= Stomach Cramp Tremor Observation: 0= None Yawning Observation: 0= None Anxiety or Irritability: 4=Extreme Anxiety Goose Flesh Skin: 0=Smooth Skin COWS Score: 12 CIWA Score - Admission Criteria OASAS Guidelines: Admission for Medically Managed Detox: Requires at least one of the followin. CIWA greater than 12 2. Seizures within the past 24 hours 3. Delirium tremens within the past 24 hours 4. Hallucinations within the past 24 hours 5. Acute intervention needed for co occurring medical disorder 6. Acute intervention needed for co occurring psychiatric disorder 7. Severe withdrawal that cannot be handled at a lower level of care (continued vomiting, continued diarrhea, abnormal vital signs) requiring intravenous medication and/or fluids 8. Admission ROS [facility] - HPI Allergies/Adverse Reactions: Allergies Allergy/AdvReac Type Severity Reaction Status Date / Time No Known Allergies Allergy Verified 10/26/18 09:50 History of Present Illness: patient here requesting detox from opiate use , reports 5 bags/day , first age of use 22 ( august 2017 ) , latest use yesterday 12 MN - 1 am , denies IVDU , OD x 1 3 weeks ago , no Narcan used , prior detox [facility] sober x 2 weeks , no outpt program . Denies fentanyl use. Denies other illicits except cannabis, denies etoh. cannabis : since age 15 tobacco : 1/2 ppd PMHX : denies PShx : denies Psych : denies meds : denies Exam Limitations: No Limitations - Ebola screening Have you traveled outside of the country in the last 21 days: No Have you had contact with anyone from an Ebola affected area: No Have you been sick,other than usual withdrawal symptoms: No Do you have a fever: No - Review of Systems Constitutional: See HPI EENT: reports: Other (myopia , denies dysphagia) Respiratory: reports: No Symptoms reported Cardiac: reports: No Symptoms Reported GI: reports: See HPI : reports: No Symptoms Reported Musculoskeletal: reports: See HPI Integumentary: reports: No Symptoms Reported Neuro: reports: No Symptoms reported Endocrine: reports: No Symptoms Reported Psychiatric: reports: Orientated x3, Anxious Patient History - Patient Medical History Hx Anemia: No Hx Asthma: No Hx Chronic Obstructive Pulmonary Disease (COPD): No Hx Cancer: No Hx Cardiac Disorders: No Hx Congestive Heart Failure: No Hx Hypertension: No Hx Hypercholesterolemia: No Hx Pacemaker: No HX Cerebrovascular Accident: No Hx Seizures: No Hx Dementia: No Hx Diabetes: No Hx Gastrointestinal Disorders: No Hx Liver Disease: No Hx Genitourinary Disorders: No Hx Sexually Transmitted Disorders: No Hx Renal Disease (ESRD): No Hx Thyroid Disease: No Hx Human Immunodeficiency Virus (HIV): No (2018) Hx Hepatitis C: No Hx Depression: No Hx Suicide Attempt: No Hx Bipolar Disorder: No Hx Schizophrenia: No - Patient Surgical History Past Surgical History: No Hx Neurologic Surgery: No Hx Cataract Extraction: No Hx Cardiac Surgery: No Hx Lung Surgery: No Hx Breast Surgery: No Hx Breast Biopsy: No Hx Abdominal Surgery: No Hx Appendectomy: No Hx Cholecystectomy: No Hx Genitourinary Surgery: No Hx Section: No Hx Orthopedic Surgery: No Anesthesia Reaction: No - PPD History Previous Implant?: Yes Documented Results: Negative w/proof Implanted On Prior R Admission?: Yes Date: 03/25/17 Results: 0 mm - Smoking Cessation Smoking history: Current every day smoker Have you smoked in the past 12 months: Yes Aproximately how many cigarettes per day: 10 Cigars Per Day: 0 Hx Chewing Tobacco Use: No Initiated information on smoking cessation: No - Substances Abused Heroin Route: Inhalation Frequency: Daily Amount used: 3-4 bags Age of first use: 22 Date of Last Use: 10/25/18 Family Disease History - Family Disease History Family Disease History: Diabetes: Grandparent (HTN,THYROID), Heart Disease: Grandparent, CA: Grandparent, Father (THROAT) Admission Physical Exam BHS - Vital Signs Vital Signs: Vital Signs - 24 hr 10/26/18 09:14 Temperature 95.9 F L Pulse Rate 86 Respiratory 18 Rate Blood Pressure 118/65 - Physical General Appearance: Yes: Mild Distress HEENTM: Yes: EOMI, Hearing grossly Normal, Normocephalic, Normal Voice Respiratory: Yes: Chest Non-Tender, Lungs Clear, Normal Breath Sounds Neck: Yes: No masses,lesions,Nodules, Trachea in good position Cardiology: Yes: Regular Rhythm, Regular Rate, S1, S2, Tachycardia Abdominal: Yes: Normal Bowel Sounds, Non Tender, Soft Genitourinary: Yes: Within Normal Limits Back: Yes: Normal Inspection Musculoskeletal: Yes: full range of Motion, Gait Steady Extremities: Yes: Normal Capillary Refill, Normal Range of Motion Neurological: Yes: Motor Strength 5/5 Integumentary: Yes: Normal Color - Diagnostic (1) Cannabis dependence Current Visit: Yes Status: Chronic (2) Nicotine dependence Current Visit: No Status: Chronic Qualifiers: Nicotine product type: cigarettes (3) Opioid dependence with withdrawal Current Visit: No Status: Acute BHS Breath Alcohol Content Breath Alcohol Content: 0 Urine Drug Screen - Results Drug Screen Negative: No Urine Drug Screen Results: THC-Marijuana, OPI-Opiates, FEN-Fentanyl Inpatient Rehab Admission - Rehab Decision to Admit Inpatient rehab admission?: No
[2018-10-26] MEDS ORDERED: MENTHOL/PHENOL 1 EACH UD MM PRN (10:40)
[2018-10-26] MEDS ORDERED: MAG HYDROX/AL HYDROX/SIMETH 30 ML UNIT-DOSE CUP PO PRN (10:40)
[2018-10-26] MEDS ORDERED: MAGNESIUM CITRATE 300 ML BOTTLE PO PRN (10:40)
[2018-10-26] MEDS ORDERED: MAGNESIUM HYDROX 2400MG/30ML ORAL SUSPENSION 30 ML CUP PO PRN (10:40)
[2018-10-26] MEDS ORDERED: ACETAMINOPHEN 325 MG TABLET (FP) PO PRN (10:40)
[2018-10-26] MEDS ORDERED: METHADONE HCL 10 MG TABLET (FOR DETOX USE ONLY) PO ONE ×2 (10:40→23:00)
[2018-10-26] MEDS ORDERED: IBUPROFEN 400 MG TABLET (FP) PO PRN (10:40)
[2018-10-26] MEDS ORDERED: NICOTINE POLACRILEX 2 MG GUM BUC PRN (10:40)
[2018-10-26] MEDS ORDERED: cloNIDine HCL 0.1 MG TABLET PO PRN (10:43)
[2018-10-26] MEDS: MELATONIN 5 MG TABLETS PO PRN (22:28)
[2018-10-26] MEDS: THIAMINE HCL 100 MG TABLET (FP) PO SCH (22:29)
[2018-10-27] MEDS ORDERED: METHADONE HCL 10 MG TABLET (FOR DETOX USE ONLY) PO ONE (10:00)
[2018-10-27] MEDS: PRENATAL VITAMINS W/ FOLIC ACID TABLET (FP) PO SCH (10:29)
[2018-10-27] MEDS: hydrOXYzine PAMOATE 25 MG CAPSULE (FP) PO PRN ×2 (10:29→22:43)
[2018-10-27 10:35] LABS: HEMATOCRIT 42.5 % (35.4-49); HEMOGLOBIN 14.6 GM/dL (11.7-16.9); MCH 29.3 pg (25.7-33.7); MCHC 34.3 g/dl (32.0-35.9); MEAN CELL VOLUME 85.5 fl (80-96); MEAN PLT VOLUME 8.5 fl (7.5-11.1); PLATELET COUNT 276 K/MM3 (134-434); RBC 4.97 M/mm3 (4.00-5.60); RDW 14.3 % (11.9-15.9); WHITE BLOOD COUNT 9.1 K/mm3 (4.0-10.0)
[2018-10-27 10:55] LABS: ALBUMIN 4.2 g/dl (3.4-5.0); ALK PHOS 68 U/L (45-117); ANION GAP 13 MMOL/L (8-16); BILIRUBIN,TOTAL 0.8 mg/dL (0.2-1); BLOOD UREA NITROGEN 14 mg/dL (7-18); CALCIUM 8.9 mg/dL (8.5-10.1); CHLORIDE 99 mmol/L (98-107); CO2 23 mmol/L (21-32); GLUCOSE,RANDOM 98 mg/dL (74-106); POTASSIUM 3.3 mmol/L (3.5-5.1); SGOT/AST 9 U/L (15-37); SGPT/ALT 19 U/L (13-61); SODIUM 135 mmol/L (136-145); TOT PROT 7.4 g/dl (6.4-8.2)
--- NOTE | 2018-10-27 13:17 | PN ---
S COWS - Scale Resting Pulse: 0= [place] 80 or Below Sweatin= Chills/Flushing Restless Observation: 1= Difficult to Sit Still Pupil Size: 1= Pupils >than Normal Bone or Joint Aches: 2= Severe Diffuse Aches Runny Nose/ Eye Tearin= Nasal Congestion GI Upset > 30mins: 1= Stomach Cramp Tremor Observation of Outstretched Hands: 1= Tremor [place], Not Seen Yawning Observation: 1= 1-2x During Session Anxiety or Irritability: 2=Irritable/Anxious Goose Flesh Skin: 0=Smooth Skin COWS Score: 11 S Progress Note (SOAP) Subjective: back pain trouble sleep at night body aches tremor sweating Objective: 10/27/18 13:18 Vital Signs Temperature 97.2 F L 10/27/18 09:02 Pulse Rate 65 10/27/18 09:02 Respiratory Rate 16 10/27/18 09:02 Blood Pressure 93/57 L 10/27/18 09:02 O2 Sat by Pulse Oximetry (%) Laboratory Last Values WBC 9.1 K/mm3 (4.0-10.0) 10/27/18 06:00 RBC 4.97 M/mm3 (4.00-5.60) 10/27/18 06:00 Hgb 14.6 GM/dL (11.7-16.9) 10/27/18 06:00 Hct 42.5 % (35.4-49) 10/27/18 06:00 MCV 85.5 fl (80-96) 10/27/18 06:00 MCH 29.3 pg (25.7-33.7) 10/27/18 06:00 MCHC 34.3 g/dl (32.0-35.9) 10/27/18 06:00 RDW 14.3 % (11.9-15.9) 10/27/18 06:00 Plt Count 276 K/MM3 (134-434) 10/27/18 06:00 MPV 8.5 fl (7.5-11.1) 10/27/18 06:00 Sodium 135 mmol/L (136-145) L 10/27/18 06:00 Potassium 3.3 mmol/L (3.5-5.1) L 10/27/18 06:00 Chloride 99 mmol/L (98-107) 10/27/18 06:00 Carbon Dioxide 23 mmol/L (21-32) 10/27/18 06:00 Anion Gap 13 MMOL/L (8-16) 10/27/18 06:00 BUN 14 mg/dL (7-18) 10/27/18 06:00 Creatinine 1.0 mg/dL (0.55-1.3) 10/27/18 06:00 Creat Clearance w eGFR > 60 (>60) 10/27/18 06:00 Random Glucose 98 mg/dL (74-106) 10/27/18 06:00 Calcium 8.9 mg/dL (8.5-10.1) 10/27/18 06:00 Total Bilirubin 0.8 mg/dL (0.2-1) 10/27/18 06:00 AST 9 U/L (15-37) L 10/27/18 06:00 ALT 19 U/L (13-61) 10/27/18 06:00 Alkaline Phosphatase 68 U/L (45-117) 10/27/18 06:00 Total Protein 7.4 g/dl (6.4-8.2) 10/27/18 06:00 Albumin 4.2 g/dl (3.4-5.0) 10/27/18 06:00 lab noted low K+ K+ supplement 10/27/18 13:21 Assessment: 10/27/18 13:20 withdrawal sx Plan: continue detox
[2018-10-27] MEDS: POTASSIUM CHLORIDE TABS 20 MEQ TABLET.ER (FP) PO SCH ×2 (15:05→22:41)
[2018-10-27] MEDS: diazePAM 5 MG TABLET PO PRN ×2 (15:06→20:35)
--- NOTE | 2018-10-27 17:55 | CONSULT ---
[facility] Psychiatric Consult - Data Date of interview: 10/27/18 Admission source: [facility] Identifying data: Patient is a 23 year old male seeking detoxification treatment on [address] [place] [address] for heroin dependence. Patient is single, without children, unemployed, residing with his mother and is supported by his relatives. This is one of multiple admissions for patient. Patient admitted to for opiate dependence. Substance Abuse History: Smoking Cessation. Smoking history: Current every day smoker. Have you smoked in the past 12 months: Yes. Aproximately how many cigarettes per day: 10. Cigars Per Day: 0. Hx Chewing Tobacco Use: No. Initiated information on smoking cessation: No. - Substances Abused. Heroin. Route: Inhalation. Frequency: Daily. Amount used: 3-4 bags. Age of first use: 22. Date of Last Use: 10/25/18 Medical History: denies. endorses good health. Psychiatric History: Patient denies h/o psychiatric hospitalization, outpatient care, and suicide attempt. At present, Mr. Orosco reports anxiety but states the valium works well and is only requesting additional sleep aid at this time. Physical/Sexual Abuse/Trauma History: denies. Mental Status Exam - Mental Status Exam Alert and Oriented to: Time, Place, Person Cognitive Function: Good Patient Appearance: Well Groomed Mood: Euthymic Affect: Appropriate Patient Behavior: Appropriate, Cooperative Speech Pattern: Clear, Appropriate Voice Loudness: Normal Thought Process: Intact Thought Disorder: Not Present Hallucinations: Denies Suicidal Ideation: Denies Homicidal Ideation: Denies Insight/Judgement: Poor Sleep: Poorly Appetite: Fair Muscle strength/Tone: Normal Gait/Station: Normal Psychiatric Findings - Problem List ([place] 1, 2,3) (1) Substance-induced sleep disorder Current Visit: Yes Status: Acute (2) Opioid dependence with withdrawal Current Visit: Yes Status: Acute (3) Cannabis dependence Current Visit: Yes Status: Chronic (4) Nicotine dependence Current Visit: No Status: Chronic Qualifiers: Nicotine product type: cigarettes - Initial Treatment Plan Initial Treatment Plan: Psychoeducation provided. Detoxification in progress. Will order belsomra 10mg PRN for insomnia. Benefits and side effects discussed. Verbal consent given.
[2018-10-27] MEDS ORDERED: SUVOREXANT 10 MG TABLET PO PRN (22:00)
[2018-10-27] MEDS: THIAMINE HCL 100 MG TABLET (FP) PO SCH (22:41)
[2018-10-27] MEDS: MELATONIN 5 MG TABLETS PO PRN (22:41)
[2018-10-28] MEDS ORDERED: METHADONE HCL 5 MG TABLET (FOR DETOX USE ONLY) PO ONE (10:00)
[2018-10-28] MEDS: POTASSIUM CHLORIDE TABS 20 MEQ TABLET.ER (FP) PO SCH ×2 (10:09→22:24)
[2018-10-28] MEDS: PRENATAL VITAMINS W/ FOLIC ACID TABLET (FP) PO SCH (10:09)
[2018-10-28] MEDS: diazePAM 5 MG TABLET PO PRN ×3 (10:10→22:22)
--- NOTE | 2018-10-28 15:45 | PN ---
BHS COWS - Scale Resting Pulse: 0= [place] 80 or Below Sweatin= Chills/Flushing Restless Observation: 1= Difficult to Sit Still Pupil Size: 1= Pupils >than Normal Bone or Joint Aches: 1= Mild Discomfort Runny Nose/ Eye Tearin= Nasal Congestion GI Upset > 30mins: 1= Stomach Cramp Tremor Observation of Outstretched Hands: 1= Tremor [place], Not Seen Yawning Observation: 1= 1-2x During Session Anxiety or Irritability: 1=Feels Anxious/Irritable Goose Flesh Skin: 0=Smooth Skin COWS Score: 9 S Progress Note (SOAP) Subjective: sweating tremor body aches Objective: 10/28/18 15:43 Vital Signs Temperature 96.7 F L 10/28/18 13:54 Pulse Rate 71 10/28/18 13:54 Respiratory Rate 18 10/28/18 13:54 Blood Pressure 111/60 10/28/18 13:54 O2 Sat by Pulse Oximetry (%) Laboratory Last Values WBC 9.1 K/mm3 (4.0-10.0) 10/27/18 06:00 RBC 4.97 M/mm3 (4.00-5.60) 10/27/18 06:00 Hgb 14.6 GM/dL (11.7-16.9) 10/27/18 06:00 Hct 42.5 % (35.4-49) 10/27/18 06:00 MCV 85.5 fl (80-96) 10/27/18 06:00 MCH 29.3 pg (25.7-33.7) 10/27/18 06:00 MCHC 34.3 g/dl (32.0-35.9) 10/27/18 06:00 RDW 14.3 % (11.9-15.9) 10/27/18 06:00 Plt Count 276 K/MM3 (134-434) 10/27/18 06:00 MPV 8.5 fl (7.5-11.1) 10/27/18 06:00 Sodium 135 mmol/L (136-145) L 10/27/18 06:00 Potassium 4.5 mmol/L (3.5-5.1) 10/28/18 07:00 Chloride 99 mmol/L (98-107) 10/27/18 06:00 Carbon Dioxide 23 mmol/L (21-32) 10/27/18 06:00 Anion Gap 13 MMOL/L (8-16) 10/27/18 06:00 BUN 14 mg/dL (7-18) 10/27/18 06:00 Creatinine 1.0 mg/dL (0.55-1.3) 10/27/18 06:00 Creat Clearance w eGFR > 60 (>60) 10/27/18 06:00 Random Glucose 98 mg/dL (74-106) 10/27/18 06:00 Calcium 8.9 mg/dL (8.5-10.1) 10/27/18 06:00 Total Bilirubin 0.8 mg/dL (0.2-1) 10/27/18 06:00 AST 9 U/L (15-37) L 10/27/18 06:00 ALT 19 U/L (13-61) 10/27/18 06:00 Alkaline Phosphatase 68 U/L (45-117) 10/27/18 06:00 Total Protein 7.4 g/dl (6.4-8.2) 10/27/18 06:00 Albumin 4.2 g/dl (3.4-5.0) 10/27/18 06:00 RPR Titer Nonreactive (NONREACTIVE) 10/27/18 06:00 lab noted Assessment: 10/28/18 15:44 withdrawal sx Plan: continue detox
[2018-10-28] MEDS: THIAMINE HCL 100 MG TABLET (FP) PO SCH (22:22)
[2018-10-28] MEDS: MELATONIN 5 MG TABLETS PO PRN (22:25)
[2018-10-29] MEDS: diazePAM 5 MG TABLET PO PRN ×3 (09:57→22:25)
[2018-10-29] MEDS: PRENATAL VITAMINS W/ FOLIC ACID TABLET (FP) PO SCH (09:57)
[2018-10-29] MEDS: POTASSIUM CHLORIDE TABS 20 MEQ TABLET.ER (FP) PO SCH ×2 (09:57→22:25)
[2018-10-29] MEDS ORDERED: METHADONE HCL 10 MG TABLET (FOR DETOX USE ONLY) PO ONE (10:00)
--- NOTE | 2018-10-29 17:42 | PN ---
BHS Progress Note (SOAP) Subjective: Interrupted sleep, Sweating, Chills. Objective: PATIENT A & O X 3, OBSERVED AMBULATING ON UNIT. IN NO ACUTE DISTRESS. 10/29/18 17:41 Vital Signs Temperature 96.3 F L 10/29/18 13:01 Pulse Rate 68 10/29/18 13:01 Respiratory Rate 18 10/29/18 13:01 Blood Pressure 120/89 10/29/18 13:01 O2 Sat by Pulse Oximetry (%) Laboratory Tests 10/27/18 10/27/18 10/27/18 06:00 06:00 06:00 WBC 9.1 RBC 4.97 Hgb 14.6 Hct 42.5 MCV 85.5 MCH 29.3 MCHC 34.3 RDW 14.3 Plt Count 276 MPV 8.5 Sodium 135 L Potassium 3.3 L Chloride 99 Carbon Dioxide 23 Anion Gap 13 BUN 14 Creatinine 1.0 Creat Clearance w eGFR > 60 Random Glucose 98 Calcium 8.9 Total Bilirubin 0.8 AST 9 L ALT 19 Alkaline Phosphatase 68 Total Protein 7.4 Albumin 4.2 RPR Titer Nonreactive 10/28/18 07:00 WBC RBC Hgb Hct MCV MCH MCHC RDW Plt Count MPV Sodium Potassium 4.5 Chloride Carbon Dioxide Anion Gap BUN Creatinine Creat Clearance w eGFR Random Glucose Calcium Total Bilirubin AST ALT Alkaline Phosphatase Total Protein Albumin RPR Titer LABS NOTED. Assessment: 10/29/18 17:41 WITHDRAWAL SYMPTOMS. Plan: CONTINUE DETOX. PATIENT SCHEDULED FOR D/C TOMORROW .
[2018-10-29] MEDS: THIAMINE HCL 100 MG TABLET (FP) PO SCH (22:25)
[2018-10-30] MEDS ORDERED: METHADONE HCL 5 MG TABLET (FOR DETOX USE ONLY) PO ONE (06:00)
[2018-10-30 09:51] VITALS: BP 110/62; PULSE 60; TEMP 97.8
[2018-10-30] MEDS: PRENATAL VITAMINS W/ FOLIC ACID TABLET (FP) PO SCH (10:42)
[2018-10-30] MEDS: POTASSIUM CHLORIDE TABS 20 MEQ TABLET.ER (FP) PO SCH (10:42)
--- NOTE | 2018-10-30 19:52 | DS ---
[facility] Detox Discharge Summary Admission Date: 10/26/18 Discharge Date: 10/30/18 - History Present History: Cannabis Dependence, Opioid Dependence Additional Comments: PATIENT UNDECIDED ABOUT SPECIFIC AFTERCARE PLAN AT THIS TIME. PATIENT WILL RETURN HOME FOR TIME BEING AND WILL DECIDE COURSE OF ACTION FOR AFTERCARE PLAN IN NEXT FEW DAYS. PATIENT ADVISED TO CONSIDER REHAB OPTIONS AND POSSIBLE LOCAL 12-STEP / NA OUTPATIENT SUPPORT GROUP PROGRAM OPTIONS WHEN MAKING HIS DECISION. PATIENT VERBALIZED UNDERSTANDING OF RECOMMENDATION. PATIENT WAS DISCHARGED FROM DETOX UNIT IN STABLE MEDICAL CONDITION. Pertinent Past History: Nicotine Dependence. - Physical Exam Results Vital Signs: Vital Signs Temperature 97.8 F 10/30/18 09:50 Pulse Rate 60 10/30/18 09:50 Respiratory Rate 18 10/30/18 09:50 Blood Pressure 110/62 10/30/18 09:50 O2 Sat by Pulse Oximetry (%) Pertinent Admission Physical Exam Findings: WITHDRAWAL SYMPTOMS. Laboratory Tests 10/27/18 10/27/18 10/27/18 06:00 06:00 06:00 WBC 9.1 RBC 4.97 Hgb 14.6 Hct 42.5 MCV 85.5 MCH 29.3 MCHC 34.3 RDW 14.3 Plt Count 276 MPV 8.5 Sodium 135 L Potassium 3.3 L Chloride 99 Carbon Dioxide 23 Anion Gap 13 BUN 14 Creatinine 1.0 Creat Clearance w eGFR > 60 Random Glucose 98 Calcium 8.9 Total Bilirubin 0.8 AST 9 L ALT 19 Alkaline Phosphatase 68 Total Protein 7.4 Albumin 4.2 RPR Titer Nonreactive 10/28/18 07:00 WBC RBC Hgb Hct MCV MCH MCHC RDW Plt Count MPV Sodium Potassium 4.5 Chloride Carbon Dioxide Anion Gap BUN Creatinine Creat Clearance w eGFR Random Glucose Calcium Total Bilirubin AST ALT Alkaline Phosphatase Total Protein Albumin RPR Titer LABS NOTED. - Treatment Hospital Course: Detox Protocol Followed, Detoxed Safely, Responded well, Discharged Condition Good Patient has Accepted a Rehab Referral to: PT. UNDECIDED AT THIS TIME, WILL CONSIDER REHAB/OP OPTIONS FOR AFTERCARE. - Medication Discharge Medications: Ambulatory Orders NK [No Known Home Medication] 10/26/18 - Diagnosis (1) Opioid dependence with withdrawal Status: Acute (2) Cannabis dependence Status: Chronic (3) Nicotine dependence Status: Chronic Qualifiers: Nicotine product type: cigarettes Substance use status: uncomplicated Qualified Code(s): F17.210 - Nicotine dependence, cigarettes, uncomplicated (4) Substance-induced sleep disorder Status: Acute - AMA Did Patient Leave Against Medical Advice: No
== END 2018-10-30 12:05 | disposition home or self-care (01) | DRG 773 ==
LOC: YASAS 08:28 → Y3N 10:42
PROVIDERS: ADMIT Surgery; ATTEND Surgery
PROC: HZ2ZZZZ Detoxification Services for Substance Abuse Treatment (ICD-10-PCS; principal; 2018-10-26)
DX: F11.23 Opioid dependence with withdrawal (principal); F12.20 Cannabis dependence, uncomplicated; F17.210 Nicotine dependence, cigarettes, uncomplicated; F19.282 Other psychoactive substance dependence with psychoactive substance-induced sleep disorder; R00.0 Tachycardia, unspecified
CPT/HCPCS: 36415; 80053; 84132; 85027; 86593; J0735

== ENCOUNTER 2018-11-23 11:05 | Inpatient (IN) | payer OTHER ==
[2018-11-23 13:38] VITALS: BMI 30.7
--- NOTE | 2018-11-23 14:09 | HP ---
COWS - Scale Resting Pulse: 0= RI 80 or Below Sweatin= Chills/Flushing Restless Observation: 3= Extraneous Movement Pupil Size: 1= Pupils >than Normal Bone or Joint Aches: 2= Severe Diffuse Aches Runny Nose/ Eye Tearin= Runny Nose/Eyes GI Upset > 30mins: 2= Nausea/Diarrhea Tremor Observation: 2= Slight Tremor Visible Yawning Observation: 1= 1-2x During Session Anxiety or Irritability: 2=Irritable/Anxious Goose Flesh Skin: 0=Smooth Skin COWS Score: 16 CIWA Score - Admission Criteria OASAS Guidelines: Admission for Medically Managed Detox: Requires at least one of the followin. CIWA greater than 12 2. Seizures within the past 24 hours 3. Delirium tremens within the past 24 hours 4. Hallucinations within the past 24 hours 5. Acute intervention needed for co occurring medical disorder 6. Acute intervention needed for co occurring psychiatric disorder 7. Severe withdrawal that cannot be handled at a lower level of care (continued vomiting, continued diarrhea, abnormal vital signs) requiring intravenous medication and/or fluids 8. Admission ROS S - HPI Chief Complaint: I need help to stop using heroin Allergies/Adverse Reactions: Allergies Allergy/AdvReac Type Severity Reaction Status Date / Time No Known Allergies Allergy Verified 11/23/18 14:05 History of Present Illness: this 23 years old male with heroin dependence,seeking detox,withdrawal symptom, multiple admissions but keep relapsing also marijuana abused nicotine dependence 1 pack longest period of sobriety [address] [facility] last night Exam Limitations: No Limitations - Ebola screening Have you traveled outside of the country in the last 21 days: No Have you had contact with anyone from an Ebola affected area: No Have you been sick,other than usual withdrawal symptoms: No Do you have a fever: No - Review of Systems Constitutional: Chills, Loss of Appetite, Malaise, Night Sweats, Changes in sleep, Weakness EENT: reports: Tearing, Nose Congestion Respiratory: reports: No Symptoms reported Cardiac: reports: No Symptoms Reported GI: reports: Diarrhea, Nausea, Abdominal cramping : reports: No Symptoms Reported Musculoskeletal: reports: Back Pain, Joint Pain, Muscle Pain, Joint Stiffness Integumentary: reports: Dryness Neuro: reports: Headache, Tremors Endocrine: reports: No Symptoms Reported Hematology: reports: No Symptoms Reported Psychiatric: reports: No Sypmtoms Reported, Judgement Intact, Mood/Affect Appropiate, Orientated x3 Other Systems: Reviewed and Negative Patient History - Patient Medical History Hx Anemia: No Hx Asthma: No Hx Chronic Obstructive Pulmonary Disease (COPD): No Hx Cancer: No Hx Cardiac Disorders: No Hx Congestive Heart Failure: No Hx Hypertension: No Hx Hypercholesterolemia: No Hx Pacemaker: No HX Cerebrovascular Accident: No Hx Seizures: No Hx Dementia: No Hx Diabetes: No Hx Gastrointestinal Disorders: No Hx Liver Disease: No Hx Genitourinary Disorders: No Hx Sexually Transmitted Disorders: No Hx Renal Disease (ESRD): No Hx Thyroid Disease: No Hx Human Immunodeficiency Virus (HIV): No (2018) Hx Hepatitis C: No Hx Depression: No Hx Suicide Attempt: No Hx Bipolar Disorder: No Hx Schizophrenia: No Other Medical History: no suicidal,no homicidal - Patient Surgical History Past Surgical History: No Hx Neurologic Surgery: No Hx Cataract Extraction: No Hx Cardiac Surgery: No Hx Lung Surgery: No Hx Breast Surgery: No Hx Breast Biopsy: No Hx Abdominal Surgery: No Hx Appendectomy: No Hx Cholecystectomy: No Hx Genitourinary Surgery: No Hx Section: No Hx Orthopedic Surgery: No Anesthesia Reaction: No - PPD History Previous Implant?: Yes Documented Results: Negative w/proof Implanted On Prior [facility] Admission?: Yes Date: 10/28/18 Results: 0 mm PPD to be Administered?: No - Smoking Cessation Smoking history: Current every day smoker Have you smoked in the past 12 months: Yes Aproximately how many cigarettes per day: 10 Cigars Per Day: 0 Hx Chewing Tobacco Use: No Initiated information on smoking cessation: Yes 'Breaking Loose' booklet given: 11/23/18 - Substance & Tx. History Hx Alcohol Use: No Hx Substance Use: Yes Substance Use Type: Heroin, Marijuana Hx Substance Use Treatment: Yes ([facility] 10/26/18 to 10/30/18) - Substances Abused Heroin Route: Inhalation Frequency: Daily Amount used: 5-10 bags Age of first use: 22 Date of Last Use: 11/22/18 Marijuana/Hashish Route: Smoking Frequency: 3-6 times per week Amount used: 1 gram Age of first use: 16 Date of Last Use: 11/22/18 Family Disease History - Family Disease History Family Disease History: Diabetes: Grandparent (HTN,THYROID), Heart Disease: Grandparent, CA: Grandparent, Father (THROAT) Admission Physical Exam [facility] - Vital Signs Vital Signs: Vital Signs - 24 hr 11/23/18 13:36 Temperature 96.2 F L Pulse Rate 67 Respiratory 18 Rate Blood Pressure 107/55 L - Physical General Appearance: Yes: Moderate Distress, Tremorous, Irritable, Sweating, Anxious HEENTM: Yes: Normal ENT Inspection, BRANDIE, Pharynx Normal Respiratory: Yes: Lungs Clear, Normal Breath Sounds, No Respiratory Distress Neck: Yes: Within Normal Limits, Supple, Trachea in good position Breast: Yes: Within Normal Limits Cardiology: Yes: Within Normal Limits, Regular Rhythm, Regular Rate, S1, S2 Abdominal: Yes: Within Normal Limits, Normal Bowel Sounds, Non Tender, Flat, Soft Genitourinary: Yes: Within Normal Limits Back: Yes: Muscle Spasm Musculoskeletal: Yes: Back pain, Joint Stiffness, Muscle Pain Extremities: Yes: Tremors Neurological: Yes: industrial custodian II-XII NML intact, Fully Oriented, Alert, Motor Strength 5/5 Integumentary: Yes: Dry Lymphatic: Yes: Within Normal Limits - Diagnostic (1) Opioid dependence with withdrawal Current Visit: No Status: Acute (2) Dehydration Current Visit: No Status: Acute (3) Cannabis dependence Current Visit: No Status: Chronic (4) Nicotine dependence Current Visit: No Status: Chronic Qualifiers: Nicotine product type: cigarettes Substance use status: uncomplicated Qualified Code(s): F17.210 - Nicotine dependence, cigarettes, uncomplicated (5) Insomnia Current Visit: Yes Status: Acute Cleared for Admission [facility] - Detox or Rehab [facility] Level of Care: Medically Managed Detox Regimen/Protocol: Methadone [facility] Breath Alcohol Content Breath Alcohol Content: 0 Urine Drug Screen - Results Drug Screen Negative: No Urine Drug Screen Results: THC-Marijuana, OPI-Opiates, BZO-Benzodiazepines, FEN- Fentanyl Inpatient Rehab Admission - Rehab Decision to Admit Inpatient rehab admission?: No
[2018-11-23] MEDS ORDERED: BISMUTH SUBSALICYLATE 262 MG/15 ML BTL PO PRN (14:16)
[2018-11-23] MEDS ORDERED: MAG HYDROX/AL HYDROX/SIMETH 30 ML UNIT-DOSE CUP PO PRN (14:16)
[2018-11-23] MEDS ORDERED: hydrOXYzine PAMOATE 25 MG CAPSULE (FP) PO PRN (14:16)
[2018-11-23] MEDS ORDERED: ACETAMINOPHEN 325 MG TABLET (FP) PO PRN ×2 (14:16)
[2018-11-23] MEDS ORDERED: MENTHOL/PHENOL 1 EACH UD MM PRN (14:16)
[2018-11-23] MEDS ORDERED: IBUPROFEN 400 MG TABLET (FP) PO PRN (14:16)
[2018-11-23] MEDS ORDERED: cloNIDine HCL 0.1 MG TABLET PO PRN (14:16)
[2018-11-23] MEDS ORDERED: MAGNESIUM CITRATE 300 ML BOTTLE PO PRN (14:16)
[2018-11-23] MEDS ORDERED: MAGNESIUM HYDROX 2400MG/30ML ORAL SUSPENSION 30 ML CUP PO PRN (14:16)
[2018-11-23] MEDS ORDERED: METHOCARBAMOL 500 MG TABLET PO PRN (14:16)
[2018-11-23] MEDS: diazePAM 5 MG TABLET PO PRN ×2 (17:05→22:17)
[2018-11-23] MEDS: THIAMINE HCL 100 MG TABLET (FP) PO SCH (22:15)
[2018-11-23] MEDS ORDERED: METHADONE HCL 10 MG TABLET (FOR DETOX USE ONLY) PO ONE (23:00)
[2018-11-24] MEDS ORDERED: METHADONE HCL 10 MG TABLET (FOR DETOX USE ONLY) PO ONE (10:00)
[2018-11-24 10:31] LABS: ALBUMIN 4.1 g/dl (3.4-5.0); ALK PHOS 74 U/L (45-117); ANION GAP 7 MMOL/L (8-16); BILIRUBIN,TOTAL 0.4 mg/dL (0.2-1); BLOOD UREA NITROGEN 11 mg/dL (7-18); CALCIUM 8.8 mg/dL (8.5-10.1); CHLORIDE 104 mmol/L (98-107); CO2 27 mmol/L (21-32); CREATININE 0.9 mg/dL (0.55-1.3); GLUCOSE,RANDOM 89 mg/dL (74-106); POTASSIUM 3.8 mmol/L (3.5-5.1); SGOT/AST 9 U/L (15-37); SGPT/ALT 20 U/L (13-61); SODIUM 138 mmol/L (136-145); TOT PROT 7.4 g/dl (6.4-8.2)
[2018-11-24] MEDS: PRENATAL VITAMINS W/ FOLIC ACID TABLET (FP) PO SCH (10:31)
[2018-11-24 10:57] LABS: HEMATOCRIT 40.6 % (35.4-49); HEMOGLOBIN 14.3 GM/dL (11.7-16.9); MCH 30.1 pg (25.7-33.7); MCHC 35.2 g/dl (32.0-35.9); MEAN CELL VOLUME 85.4 fl (80-96); MEAN PLT VOLUME 8.8 fl (7.5-11.1); PLATELET COUNT 251 K/MM3 (134-434); RBC 4.75 M/mm3 (4.00-5.60); RDW 13.9 % (11.9-15.9); WHITE BLOOD COUNT 6.8 K/mm3 (4.0-10.0)
[2018-11-24] MEDS: diazePAM 5 MG TABLET PO PRN ×2 (12:59→20:48)
[2018-11-24] MEDS ORDERED: TRIMETHOBENZAMIDE HCL 300 MG CAPSULE PO PRN (15:14)
--- NOTE | 2018-11-24 15:14 | PN ---
BHS COWS - Scale Resting Pulse: 0= [place] 80 or Below Sweatin= Chills/Flushing Restless Observation: 0= Sits Still Pupil Size: 0= Normal to Room Light Bone or Joint Aches: 2= Severe Diffuse Aches Runny Nose/ Eye Tearin= Runny Nose/Eyes GI Upset > 30mins: 2= Nausea/Diarrhea Tremor Observation of Outstretched Hands: 0= None Yawning Observation: 1= 1-2x During Session Anxiety or Irritability: 2=Irritable/Anxious Goose Flesh Skin: 3=Piloerection COWS Score: 13 BHS Progress Note (SOAP) Subjective: Fatigue, Hot / Cold Sensations, Nausea, Body Aches, Eye Tearing. Objective: PATIENT A & O X 3. IN NO ACUTE DISTRESS. 11/24/18 15:12 Vital Signs Temperature 97.8 F 11/24/18 13:35 Pulse Rate 61 11/24/18 13:35 Respiratory Rate 18 11/24/18 13:35 Blood Pressure 133/69 11/24/18 13:35 O2 Sat by Pulse Oximetry (%) Laboratory Tests 11/24/18 11/24/18 11/24/18 06:00 06:00 06:00 WBC 6.8 RBC 4.75 Hgb 14.3 Hct 40.6 MCV 85.4 MCH 30.1 MCHC 35.2 RDW 13.9 Plt Count 251 MPV 8.8 Sodium 138 Potassium 3.8 Chloride 104 Carbon Dioxide 27 Anion Gap 7 L BUN 11 Creatinine 0.9 Creat Clearance w eGFR > 60 Random Glucose 89 Calcium 8.8 Total Bilirubin 0.4 AST 9 L ALT 20 Alkaline Phosphatase 74 Total Protein 7.4 Albumin 4.1 RPR Titer Nonreactive LABS NOTED. Assessment: 11/24/18 15:13 WITHDRAWAL SYMPTOMS. Plan: CONTINUE DETOX. INCREASE DAILY PO FLUID INTAKE.
[2018-11-24] MEDS: THIAMINE HCL 100 MG TABLET (FP) PO SCH (22:03)
[2018-11-24] MEDS: MELATONIN 5 MG TABLETS PO PRN (22:04)
--- NOTE | 2018-11-25 09:19 | PN ---
BHS COWS - Scale Resting Pulse: 0= [place] 80 or Below Sweatin= Chills/Flushing Restless Observation: 3= Extraneous Movement Pupil Size: 1= Pupils >than Normal Bone or Joint Aches: 2= Severe Diffuse Aches Runny Nose/ Eye Tearin= Nasal Congestion GI Upset > 30mins: 2= Nausea/Diarrhea Tremor Observation of Outstretched Hands: 2= Slight Tremor Visible Yawning Observation: 1= 1-2x During Session Anxiety or Irritability: 2=Irritable/Anxious Goose Flesh Skin: 0=Smooth Skin COWS Score: 15 BHS Progress Note (SOAP) Subjective: alert,irritable,anxious,interrupted sleep,painin the body and back Objective: 11/25/18 09:20 Vital Signs Temperature 97.9 F 11/25/18 09:14 Pulse Rate 56 L 11/25/18 09:14 Respiratory Rate 18 11/25/18 09:14 Blood Pressure 102/54 L 11/25/18 09:14 O2 Sat by Pulse Oximetry (%) 11/25/18 09:21 Laboratory Last Values WBC 6.8 K/mm3 (4.0-10.0) 11/24/18 06:00 RBC 4.75 M/mm3 (4.00-5.60) 11/24/18 06:00 Hgb 14.3 GM/dL (11.7-16.9) 11/24/18 06:00 Hct 40.6 % (35.4-49) 11/24/18 06:00 MCV 85.4 fl (80-96) 11/24/18 06:00 MCH 30.1 pg (25.7-33.7) 11/24/18 06:00 MCHC 35.2 g/dl (32.0-35.9) 11/24/18 06:00 RDW 13.9 % (11.9-15.9) 11/24/18 06:00 Plt Count 251 K/MM3 (134-434) 11/24/18 06:00 MPV 8.8 fl (7.5-11.1) 11/24/18 06:00 Sodium 138 mmol/L (136-145) 11/24/18 06:00 Potassium 3.8 mmol/L (3.5-5.1) 11/24/18 06:00 Chloride 104 mmol/L (98-107) 11/24/18 06:00 Carbon Dioxide 27 mmol/L (21-32) 11/24/18 06:00 Anion Gap 7 MMOL/L (8-16) L 11/24/18 06:00 BUN 11 mg/dL (7-18) 11/24/18 06:00 Creatinine 0.9 mg/dL (0.55-1.3) 11/24/18 06:00 Creat Clearance w eGFR > 60 (>60) 11/24/18 06:00 Random Glucose 89 mg/dL (74-106) 11/24/18 06:00 Calcium 8.8 mg/dL (8.5-10.1) 11/24/18 06:00 Total Bilirubin 0.4 mg/dL (0.2-1) 11/24/18 06:00 AST 9 U/L (15-37) L 11/24/18 06:00 ALT 20 U/L (13-61) 11/24/18 06:00 Alkaline Phosphatase 74 U/L (45-117) 11/24/18 06:00 Total Protein 7.4 g/dl (6.4-8.2) 11/24/18 06:00 Albumin 4.1 g/dl (3.4-5.0) 11/24/18 06:00 RPR Titer Nonreactive (NONREACTIVE) 11/24/18 06:00 Assessment: 11/25/18 09:21 withdrawal symptom Plan: continue detox
[2018-11-25] MEDS ORDERED: METHADONE HCL 10 MG TABLET (FOR DETOX USE ONLY) PO ONE (10:00)
[2018-11-25] MEDS: PRENATAL VITAMINS W/ FOLIC ACID TABLET (FP) PO SCH (10:14)
[2018-11-25] MEDS: diazePAM 5 MG TABLET PO PRN ×3 (10:14→22:09)
[2018-11-25] MEDS ORDERED: NICOTINE POLACRILEX 2 MG GUM BUC PRN (19:57)
[2018-11-25] MEDS: THIAMINE HCL 100 MG TABLET (FP) PO SCH (22:07)
[2018-11-26] MEDS ORDERED: METHADONE HCL 10 MG TABLET (FOR DETOX USE ONLY) PO ONE (10:00)
[2018-11-26] MEDS: NICOTINE 14 MG/24 HOURS TOPICAL PATCH TD SCH (10:32)
[2018-11-26] MEDS: PRENATAL VITAMINS W/ FOLIC ACID TABLET (FP) PO SCH (10:33)
[2018-11-26] MEDS: diazePAM 5 MG TABLET PO PRN (10:35)
[2018-11-26] MEDS ORDERED: METHADONE HCL 5 MG TABLET (FOR DETOX USE ONLY) PO ONE (12:00)
--- NOTE | 2018-11-26 12:03 | PN ---
S Progress Note Note: pt states he spilled his methadone during methadone at the medication window. RN saw pt drink some but spilled some. Pt c/o to filing writer that he spilled the rest of his meds by mistake. Pt will get an order of only 5mg x one dose of methadone.
--- NOTE | 2018-11-26 12:04 | PN ---
BHS Progress Note (SOAP) Subjective: anxiety sweats Objective: 11/26/18 12:04 Vital Signs Temperature 97.7 F 11/26/18 09:38 Pulse Rate 54 L 11/26/18 09:38 Respiratory Rate 17 11/26/18 09:38 Blood Pressure 101/49 L 11/26/18 09:38 O2 Sat by Pulse Oximetry (%) aaox3 ambulating no acute distress Assessment: 11/26/18 12:04 withdrawal sx Plan: continue detox increase fluids d/c in am
[2018-11-26] MEDS: THIAMINE HCL 100 MG TABLET (FP) PO SCH (22:30)
[2018-11-26] MEDS: MELATONIN 5 MG TABLETS PO PRN (22:31)
[2018-11-27] MEDS ORDERED: METHADONE HCL 5 MG TABLET (FOR DETOX USE ONLY) PO ONE (06:00)
[2018-11-27 07:25] VITALS: PULSE 59
[2018-11-27 09:43] VITALS: BP 108/55; TEMP 97.9
--- NOTE | 2018-11-27 09:53 | DS ---
[facility] Detox Discharge Summary Admission Date: 11/23/18 Discharge Date: 11/27/18 - History Present History: Cannabis Dependence, Cocaine Dependence, Opioid Dependence Pertinent Past History: Denies significant medical hx - Physical Exam Results Vital Signs: Vital Signs Temperature 97.9 F 11/27/18 09:43 Pulse Rate 59 L 11/27/18 09:43 Respiratory Rate 18 11/27/18 09:43 Blood Pressure 108/55 L 11/27/18 09:43 O2 Sat by Pulse Oximetry (%) Pertinent Admission Physical Exam Findings: Withdrawal sx Laboratory Last Values WBC 6.8 K/mm3 (4.0-10.0) 11/24/18 06:00 RBC 4.75 M/mm3 (4.00-5.60) 11/24/18 06:00 Hgb 14.3 GM/dL (11.7-16.9) 11/24/18 06:00 Hct 40.6 % (35.4-49) 11/24/18 06:00 MCV 85.4 fl (80-96) 11/24/18 06:00 MCH 30.1 pg (25.7-33.7) 11/24/18 06:00 MCHC 35.2 g/dl (32.0-35.9) 11/24/18 06:00 RDW 13.9 % (11.9-15.9) 11/24/18 06:00 Plt Count 251 K/MM3 (134-434) 11/24/18 06:00 MPV 8.8 fl (7.5-11.1) 11/24/18 06:00 Sodium 138 mmol/L (136-145) 11/24/18 06:00 Potassium 3.8 mmol/L (3.5-5.1) 11/24/18 06:00 Chloride 104 mmol/L (98-107) 11/24/18 06:00 Carbon Dioxide 27 mmol/L (21-32) 11/24/18 06:00 Anion Gap 7 MMOL/L (8-16) L 11/24/18 06:00 BUN 11 mg/dL (7-18) 11/24/18 06:00 Creatinine 0.9 mg/dL (0.55-1.3) 11/24/18 06:00 Creat Clearance w eGFR > 60 (>60) 11/24/18 06:00 Random Glucose 89 mg/dL (74-106) 11/24/18 06:00 Calcium 8.8 mg/dL (8.5-10.1) 11/24/18 06:00 Total Bilirubin 0.4 mg/dL (0.2-1) 11/24/18 06:00 AST 9 U/L (15-37) L 11/24/18 06:00 ALT 20 U/L (13-61) 11/24/18 06:00 Alkaline Phosphatase 74 U/L (45-117) 11/24/18 06:00 Total Protein 7.4 g/dl (6.4-8.2) 11/24/18 06:00 Albumin 4.1 g/dl (3.4-5.0) 11/24/18 06:00 RPR Titer Nonreactive (NONREACTIVE) 11/24/18 06:00 Labs with no panic values - Treatment Hospital Course: Detox Protocol Followed, Detoxed Safely, Responded well, Discharged Condition Good - Medication Discharge Medications: Ambulatory Orders NK [No Known Home Medication] 10/26/18 - Diagnosis (1) FELIPE (generalized anxiety disorder) Current Visit: Yes Status: Acute (2) Opioid dependence Current Visit: Yes Status: Acute Qualifiers: Substance use status: uncomplicated Qualified Code(s): F11.20 - Opioid dependence, uncomplicated (3) Substance-induced sleep disorder Current Visit: Yes Status: Acute (4) Cannabis dependence Current Visit: Yes Status: Chronic (5) Nicotine dependence Current Visit: No Status: Chronic Qualifiers: Nicotine product type: cigarettes Substance use status: uncomplicated Qualified Code(s): F17.210 - Nicotine dependence, cigarettes, uncomplicated - AMA Did Patient Leave Against Medical Advice: No
[2018-11-27] MEDS: PRENATAL VITAMINS W/ FOLIC ACID TABLET (FP) PO SCH (10:55)
[2018-11-27] MEDS: NICOTINE 14 MG/24 HOURS TOPICAL PATCH TD SCH (11:10)
== END 2018-11-27 13:45 | disposition home or self-care (01) | DRG 773 ==
LOC: YASAS 11:05 → Y6N 14:41
PROVIDERS: ADMIT Surgery; ATTEND Surgery
PROC: HZ2ZZZZ Detoxification Services for Substance Abuse Treatment (ICD-10-PCS; principal; 2018-11-22)
DX: F11.23 Opioid dependence with withdrawal (principal); F12.20 Cannabis dependence, uncomplicated; F17.210 Nicotine dependence, cigarettes, uncomplicated; F19.282 Other psychoactive substance dependence with psychoactive substance-induced sleep disorder; F41.1 Generalized anxiety disorder; E86.0 Dehydration; G47.00 Insomnia, unspecified
CPT/HCPCS: 36415; 80053; 85027; 86593; J0735

== ENCOUNTER 2018-12-12 11:55 | Inpatient (IN) | payer OTHER ==
[2018-12-12 12:43] VITALS: BMI 31.4
--- NOTE | 2018-12-12 15:22 | HP ---
COWS - Scale Resting Pulse: 1= ID [id number] Sweatin= Chills/Flushing Restless Observation: 3= Extraneous Movement Pupil Size: 1= Pupils >than Normal Bone or Joint Aches: 2= Severe Diffuse Aches Runny Nose/ Eye Tearin= Runny Nose/Eyes GI Upset > 30mins: 2= Nausea/Diarrhea Tremor Observation: 2= Slight Tremor Visible Yawning Observation: 2= >3x During Session Anxiety or Irritability: 2=Irritable/Anxious Goose Flesh Skin: 0=Smooth Skin COWS Score: 18 CIWA Score Nausea/Vomitin Muscle Tremors: 2 Anxiety: 2 Agitation: 2 Paroxysmal Sweats: 2 Orientation: 0-Oriented Tacttile Disturbances: 1-Very Mild Itch/Numbness Auditory Disturbances: 1-Very Mild Visual Disturbances: 0-None Headache: 2-Mild CIWA-Ar Total Score: 14 - Admission Criteria OASAS Guidelines: Admission for Medically Managed Detox: Requires at least one of the followin. CIWA greater than 12 2. Seizures within the past 24 hours 3. Delirium tremens within the past 24 hours 4. Hallucinations within the past 24 hours 5. Acute intervention needed for co occurring medical disorder 6. Acute intervention needed for co occurring psychiatric disorder 7. Severe withdrawal that cannot be handled at a lower level of care (continued vomiting, continued diarrhea, abnormal vital signs) requiring intravenous medication and/or fluids 8. Admission ROS S - [facility] Chief Complaint: i need help to stop using heroin,xanax and marijuana Allergies/Adverse Reactions: Allergies Allergy/AdvReac Type Severity Reaction Status Date / Time No Known Allergies Allergy Verified 12/12/18 12:43 History of Present Illness: this 23 years old male with heroin,xanax,and marijuana dependence,withdrawal symptom,seeking help, multiple admissions in detox but relapsing last detox 10/26/18 to 11/27/18 nicotine dependence 1 pack/day,requested nicotine patch and gum no significant period of sobriety plan for rehab after detox Exam Limitations: No Limitations - Ebola screening Have you traveled outside of the country in the last 21 days: No Have you been sick,other than usual withdrawal symptoms: No - Review of Systems Constitutional: Chills, Loss of Appetite, Malaise, Night Sweats, Changes in sleep, Weakness EENT: reports: Tearing, Nose Congestion Respiratory: reports: No Symptoms reported Cardiac: reports: Palpitations GI: reports: Constipated, Difficulty Swallowing, Nausea, Poor Appetite : reports: No Symptoms Reported Musculoskeletal: reports: No Symptoms Reported, Back Pain, Joint Pain, Muscle Pain Integumentary: reports: Dryness Neuro: reports: Headache, Tremors Endocrine: reports: No Symptoms Reported Hematology: reports: No Symptoms Reported Psychiatric: reports: No Sypmtoms Reported, Judgement Intact, Mood/Affect Appropiate, Orientated x3 Other Systems: Reviewed and Negative Patient History - Patient Medical History Hx Anemia: No Hx Asthma: No Hx Chronic Obstructive Pulmonary Disease (COPD): No Hx Cancer: No Hx Cardiac Disorders: No Hx Congestive Heart Failure: No Hx Hypertension: No Hx Hypercholesterolemia: No Hx Pacemaker: No HX Cerebrovascular Accident: No Hx Seizures: No Hx Dementia: No Hx Diabetes: No Hx Gastrointestinal Disorders: No Hx Liver Disease: No Hx Genitourinary Disorders: No Hx Sexually Transmitted Disorders: No Hx Renal Disease (ESRD): No Hx Thyroid Disease: No Hx Human Immunodeficiency Virus (HIV): No (2017 last negative) Hx Hepatitis C: No Hx Depression: No Hx Suicide Attempt: No Hx Bipolar Disorder: No Hx Schizophrenia: No Other Medical History: no suicidal,no homicidal - Patient Surgical History Past Surgical History: No Hx Neurologic Surgery: No Hx Cataract Extraction: No Hx Cardiac Surgery: No Hx Lung Surgery: No Hx Breast Surgery: No Hx Breast Biopsy: No Hx Abdominal Surgery: No Hx Appendectomy: No Hx Cholecystectomy: No Hx Genitourinary Surgery: No Hx Section: No Hx Orthopedic Surgery: No Anesthesia Reaction: No - PPD History Previous Implant?: Yes Documented Results: Negative w/proof Date: 10/28/18 Results: 0 mm PPD to be Administered?: No - Smoking Cessation Smoking history: Current every day smoker Have you smoked in the past 12 months: Yes Aproximately how many cigarettes per day: 20 Cigars Per Day: 0 Hx Chewing Tobacco Use: No Initiated information on smoking cessation: Yes 'Breaking Loose' booklet given: 12/12/18 - Substance & Tx. History Hx Alcohol Use: No Hx Substance Use: Yes Substance Use Type: Heroin, Marijuana, Tranquilizers - Substances Abused Heroin Route: SNIFF Frequency: Daily Amount used: 15 BAGS Age of first use: 22 Date of Last Use: 12/11/18 Alprazolam (Xanax) Route: Oral Frequency: 3-6 times per week Amount used: 2MGS Age of first use: 16 Date of Last Use: 12/10/18 Marijuana/Hashish Route: Smoking Frequency: Daily Amount used: 40$ Age of first use: 16 Date of Last Use: 12/11/18 Family Disease History - Family Disease History Family Disease History: Diabetes: Grandparent (HTN,THYROID), Heart Disease: Grandparent, [place]: Grandparent, Father (THROAT.) Admission Physical Exam [facility] - Vital Signs Vital Signs: Vital Signs - 24 hr 12/12/18 12:21 Temperature 96.6 F L Pulse Rate 64 Respiratory 18 Rate Blood Pressure 124/64 - Physical General Appearance: Yes: Moderate Distress, Tremorous, Irritable, Sweating, Anxious HEENTM: Yes: Normal ENT Inspection, BRANDIE, Pharynx Normal Respiratory: Yes: Lungs Clear, Normal Breath Sounds, No Respiratory Distress Neck: Yes: Within Normal Limits, Supple, Trachea in good position Breast: Yes: Within Normal Limits Cardiology: Yes: Within Normal Limits, Regular Rhythm, Regular Rate, S1, S2 Abdominal: Yes: Within Normal Limits, Normal Bowel Sounds, Non Tender, Flat, Soft Genitourinary: Yes: Within Normal Limits Back: Yes: Muscle Spasm Musculoskeletal: Yes: Back pain, Joint Stiffness, Muscle Pain Extremities: Yes: Tremors Neurological: Yes: Within Normal Limits, photo mask cleaner II-XII NML intact, Fully Oriented, Alert, Motor Strength 5/5 Integumentary: Yes: Dry Lymphatic: Yes: Within Normal Limits - Diagnostic (1) Opioid dependence with withdrawal Current Visit: No Status: Acute (2) Sedative hypnotic or anxiolytic dependence Current Visit: No Status: Acute (3) Dehydration Current Visit: No Status: Acute (4) Insomnia Current Visit: No Status: Acute Qualifiers: Insomnia type: unspecified Qualified Code(s): G47.00 - Insomnia, unspecified (5) Cannabis dependence Current Visit: No Status: Chronic (6) Nicotine dependence Current Visit: No Status: Chronic Qualifiers: Nicotine product type: cigarettes Substance use status: uncomplicated Qualified Code(s): F17.210 - Nicotine dependence, cigarettes, uncomplicated Cleared for Admission [facility] - Detox or Rehab [facility] Level of Care: Medically Managed Detox Regimen/Protocol: Methadone/Valium S Breath Alcohol Content Breath Alcohol Content: 0 Urine Drug Screen - Results Urine Drug Screen Results: THC-Marijuana, OPI-Opiates, BZO-Benzodiazepines Drug Screen Negative: No Inpatient Rehab Admission - Rehab Decision to Admit Inpatient rehab admission?: No
[2018-12-12] MEDS ORDERED: MAGNESIUM CITRATE 300 ML BOTTLE PO PRN (15:39)
[2018-12-12] MEDS ORDERED: ACETAMINOPHEN 325 MG TABLET (FP) PO PRN ×2 (15:39)
[2018-12-12] MEDS ORDERED: IBUPROFEN 400 MG TABLET (FP) PO PRN (15:39)
[2018-12-12] MEDS ORDERED: cloNIDine HCL 0.1 MG TABLET PO PRN (15:39)
[2018-12-12] MEDS ORDERED: METHOCARBAMOL 500 MG TABLET PO PRN (15:39)
[2018-12-12] MEDS ORDERED: BISMUTH SUBSALICYLATE 524 MG/30 ML UD PO PRN (15:39)
[2018-12-12] MEDS ORDERED: hydrOXYzine PAMOATE 25 MG CAPSULE (FP) PO PRN (15:39)
[2018-12-12] MEDS ORDERED: MAGNESIUM HYDROX 2400MG/30ML ORAL SUSPENSION 30 ML CUP PO PRN (15:39)
[2018-12-12] MEDS ORDERED: MAG HYDROX/AL HYDROX/SIMETH 30 ML UNIT-DOSE CUP PO PRN (15:39)
[2018-12-12] MEDS ORDERED: MENTHOL/PHENOL 1 EACH UD MM PRN (15:39)
[2018-12-12] MEDS ORDERED: METHADONE HCL 10 MG TABLET (FOR DETOX USE ONLY) PO ONE ×2 (15:42→23:00)
[2018-12-12] MEDS: diazePAM 5 MG TABLET PO PRN (16:45)
[2018-12-12] MEDS: MELATONIN 5 MG TABLETS PO PRN (22:15)
[2018-12-12] MEDS: THIAMINE HCL 100 MG TABLET (FP) PO SCH (22:16)
[2018-12-12] MEDS: diazePAM 5 MG TABLET PO SCH (22:16)
[2018-12-13] MEDS: diazePAM 5 MG TABLET PO SCH ×3 (05:57→22:56)
[2018-12-13] MEDS ORDERED: METHADONE HCL 10 MG TABLET (FOR DETOX USE ONLY) PO ONE (10:00)
[2018-12-13 10:03] LABS: MCHC 33.2 g/dl (32.0-35.9); MEAN CELL VOLUME 84.3 fl (80-96); MEAN PLT VOLUME 8.2 fl (7.5-11.1); PLATELET COUNT 232 K/MM3 (134-434); RBC 4.98 M/mm3 (4.00-5.60); RDW 13.4 % (11.9-15.9); WHITE BLOOD COUNT 5.7 K/mm3 (4.0-10.0)
--- NOTE | 2018-12-13 10:10 | PN ---
[facility] CIWA - CIWA Score Nausea/Vomitin-No Nausea/No Vomiting Muscle Tremors: 3 Anxiety: 3 Agitation: 3 Paroxysmal Sweats: 3 Orientation: 0-Oriented Tacttile Disturbances: 0-None Auditory Disturbances: 0-None Visual Disturbances: 0-None Headache: 0-None Present CIWA-Ar Total Score: 12 [facility] COWS - Scale Resting Pulse: 0= ID 80 or Below Sweatin=Flushed/Facial Moisture Restless Observation: 1= Difficult to Sit Still Pupil Size: 0= Normal to Room Light Bone or Joint Aches: 2= Severe Diffuse Aches Runny Nose/ Eye Tearin= Runny Nose/Eyes GI Upset > 30mins: 1= Stomach Cramp Tremor Observation of Outstretched Hands: 2= Slight Tremor Visible Yawning Observation: 2= >3x During Session Anxiety or Irritability: 2=Irritable/Anxious Goose Flesh Skin: 0=Smooth Skin COWS Score: 14 [facility] Progress Note (SOAP) Subjective: body aches sweats shakes interrupted sleep anxiety tired Objective: 12/13/18 10:09 Vital Signs Temperature 97.9 F 12/13/18 08:53 Pulse Rate 50 L 12/13/18 08:53 Respiratory Rate 18 12/13/18 08:53 Blood Pressure 123/51 L 12/13/18 08:53 O2 Sat by Pulse Oximetry (%) labs pending aaox3 ambulating no acute distress Assessment: 12/13/18 10:09 withdrawal sx Plan: continue detox increase fluids labs pending
[2018-12-13] MEDS: PRENATAL VITAMINS W/ FOLIC ACID TABLET (FP) PO SCH (10:18)
[2018-12-13 10:20] LABS: ALBUMIN 3.7 g/dl (3.4-5.0); ALK PHOS 62 U/L (45-117); ANION GAP 5 MMOL/L (8-16); BILIRUBIN,TOTAL 0.2 mg/dL (0.2-1); BLOOD UREA NITROGEN 12 mg/dL (7-18); CALCIUM 8.9 mg/dL (8.5-10.1); CHLORIDE 104 mmol/L (98-107); CO2 31 mmol/L (21-32); CREATININE 0.9 mg/dL (0.55-1.3); GLUCOSE,RANDOM 98 mg/dL (74-106); POTASSIUM 4.5 mmol/L (3.5-5.1); SGOT/AST 15 U/L (15-37); SGPT/ALT 45 U/L (13-61); SODIUM 140 mmol/L (136-145); TOT PROT 6.8 g/dl (6.4-8.2)
[2018-12-13 14:32] LABS: PH,URINE >= 9.0 (5.0-8.0); URINE APPEARANCE CLEAR; URINE BILIRUBIN NEGATIVE (NEGATIVE); URINE COLOR YELLOW; URINE GLUCOSE (UA) NEGATIVE (NEGATIVE); URINE KETONE NEGATIVE (NEGATIVE); URINE LEUK ESTERASE NEGATIVE (NEGATIVE); URINE NITRITE NEGATIVE (NEGATIVE); URINE PROTEIN NEGATIVE (NEGATIVE); URINE UROBILINOGEN 0.2 mg/dL (0.2-1.0)
[2018-12-13] MEDS: diazePAM 5 MG TABLET PO PRN (19:36)
--- NOTE | 2018-12-13 22:51 | PN ---
BHS Progress Note (SOAP) Subjective: c/o chest pain earlier. States pain was mid-sternal and radiated to (L) chest/ breast area. States pain began while sitting down and unrelated to any activity. States pain is currently resolved. Denies SOB. States no acute withdrawal symptoms at this time. Denies previous episodes of chest pain. Reports hx anxiety disorder. Objective: Alert and oriented. Pupils = 6 mm. No increased facial perspiration. Lungs CTA and unlabored. Heart ausc: Regular rhythm and 60 beats/minute. Abdomen soft and non-tender. BS(+). Vital Signs - 24 hr 12/13/18 12/13/18 12/13/18 00:30 06:30 06:32 Temperature 97.5 F L Pulse Rate 53 L Respiratory 18 18 18 Rate Blood Pressure 102/48 L 12/13/18 12/13/18 12/13/18 08:53 13:18 17:17 Temperature 97.9 F 98.2 F 98.1 F Pulse Rate 50 L 56 L 59 L Respiratory 18 16 18 Rate Blood Pressure 123/51 L 136/76 115/58 L 12/13/18 21:12 Temperature 98.2 F Pulse Rate 60 Respiratory 19 Rate Blood Pressure 113/56 L EKG today @ 20:51 w/ sinus bradycardia and marked sinus arrhythmia, otherwise normal. Last EKGs, on 08/13/18 showed NSR w/ Normal EKG, and 03/29/18 EKG showed NSR w/ possible lateral infarct. Laboratory Last Values WBC 5.7 K/mm3 (4.0-10.0) 12/13/18 07:00 RBC 4.98 M/mm3 (4.00-5.60) 12/13/18 07:00 Hgb 14.0 GM/dL (11.7-16.9) 12/13/18 07:00 Hct 42.0 % (35.4-49) 12/13/18 07:00 MCV 84.3 fl (80-96) 12/13/18 07:00 MCH 28.0 pg (25.7-33.7) 12/13/18 07:00 MCHC 33.2 g/dl (32.0-35.9) 12/13/18 07:00 RDW 13.4 % (11.9-15.9) 12/13/18 07:00 Plt Count 232 K/MM3 (134-434) 12/13/18 07:00 MPV 8.2 fl (7.5-11.1) 12/13/18 07:00 Sodium 140 mmol/L (136-145) 12/13/18 07:00 Potassium 4.5 mmol/L (3.5-5.1) 12/13/18 07:00 Chloride 104 mmol/L (98-107) 12/13/18 07:00 Carbon Dioxide 31 mmol/L (21-32) 12/13/18 07:00 Anion Gap 5 MMOL/L (8-16) L 12/13/18 07:00 BUN 12 mg/dL (7-18) 12/13/18 07:00 Creatinine 0.9 mg/dL (0.55-1.3) 12/13/18 07:00 Creat Clearance w eGFR 102.82 (>60) 12/13/18 07:00 Random Glucose 98 mg/dL (74-106) 12/13/18 07:00 Calcium 8.9 mg/dL (8.5-10.1) 12/13/18 07:00 Total Bilirubin 0.2 mg/dL (0.2-1) 12/13/18 07:00 AST 15 U/L (15-37) 12/13/18 07:00 ALT 45 U/L (13-61) 12/13/18 07:00 Alkaline Phosphatase 62 U/L (45-117) 12/13/18 07:00 Total Protein 6.8 g/dl (6.4-8.2) 12/13/18 07:00 Albumin 3.7 g/dl (3.4-5.0) 12/13/18 07:00 Urine Color Yellow 12/13/18 12:10 Urine Appearance Clear 12/13/18 12:10 Urine pH >= 9.0 (5.0-8.0) H D 12/13/18 12:10 Ur Specific [place] 1.009 (1.010-1.035) L 12/13/18 12:10 Urine Protein Negative (NEGATIVE) 12/13/18 12:10 Urine Glucose (UA) Negative (NEGATIVE) 12/13/18 12:10 Urine Ketones Negative (NEGATIVE) 12/13/18 12:10 Urine Blood Negative (NEGATIVE) 12/13/18 12:10 Urine Nitrite Negative (NEGATIVE) 12/13/18 12:10 Urine Bilirubin Negative (NEGATIVE) 12/13/18 12:10 Urine Urobilinogen 0.2 mg/dL (0.2-1.0) 12/13/18 12:10 Ur Leukocyte Esterase Negative (NEGATIVE) 12/13/18 12:10 RPR Titer Nonreactive (NONREACTIVE) 12/13/18 07:00 Labs reviewed. Assessment: Non-specific chest pain. Abnormal EKG. Opioid and anxiolytic withdrawal. Plan: Patient instructed to notify staff of return of chest pain. Start on Protonix x 2 days. Continue Valium prn Repeat EKG in am.
[2018-12-13] MEDS: THIAMINE HCL 100 MG TABLET (FP) PO SCH (22:56)
[2018-12-13] MEDS: PANTOPRAZOLE 20 MG TABLET (FP) PO SCH (22:56)
[2018-12-14] MEDS ORDERED: METHADONE HCL 10 MG TABLET (FOR DETOX USE ONLY) PO ONE (10:00)
[2018-12-14] MEDS: diazePAM 5 MG TABLET PO SCH ×2 (10:20→21:12)
[2018-12-14] MEDS: PRENATAL VITAMINS W/ FOLIC ACID TABLET (FP) PO SCH (10:20)
[2018-12-14] MEDS: PANTOPRAZOLE 20 MG TABLET (FP) PO SCH ×2 (10:20→21:11)
[2018-12-14] MEDS ORDERED: BACLOFEN 10 MG TABLET (FP) PO ONE (10:21)
--- NOTE | 2018-12-14 10:24 | PN ---
[facility] CIWA - CIWA Score Nausea/Vomitin-No Nausea/No Vomiting Muscle Tremors: 3 Anxiety: 2 Agitation: 3 Paroxysmal Sweats: 3 Orientation: 0-Oriented Tacttile Disturbances: 0-None Auditory Disturbances: 0-None Visual Disturbances: 0-None Headache: 0-None Present CIWA-Ar Total Score: 11 BHS COWS - Scale Resting Pulse: 0= [place] 80 or Below Sweatin=Flushed/Facial Moisture Restless Observation: 0= Sits Still Pupil Size: 0= Normal to Room Light Bone or Joint Aches: 1= Mild Discomfort Runny Nose/ Eye Tearin= Nasal Congestion GI Upset > 30mins: 2= Nausea/Diarrhea Tremor Observation of Outstretched Hands: 2= Slight Tremor Visible Yawning Observation: 2= >3x During Session Anxiety or Irritability: 2=Irritable/Anxious Goose Flesh Skin: 0=Smooth Skin COWS Score: 12 S Progress Note (SOAP) Subjective: sweats anxiety no c/o of any chest pain anymore interrupted sleep body aches/muscle cramps to my legs Objective: 12/14/18 10:23 Vital Signs Temperature 98.1 F 12/14/18 09:40 Pulse Rate 55 L 12/14/18 09:40 Respiratory Rate 18 12/14/18 09:40 Blood Pressure 111/50 L 12/14/18 09:40 O2 Sat by Pulse Oximetry (%) Laboratory Tests 12/13/18 12/13/18 12/13/18 07:00 07:00 07:00 WBC 5.7 RBC 4.98 Hgb 14.0 Hct 42.0 MCV 84.3 MCH 28.0 MCHC 33.2 RDW 13.4 Plt Count 232 MPV 8.2 Sodium 140 Potassium 4.5 Chloride 104 Carbon Dioxide 31 Anion Gap 5 L BUN 12 Creatinine 0.9 Creat Clearance w eGFR 102.82 Random Glucose 98 Calcium 8.9 Total Bilirubin 0.2 AST 15 ALT 45 Alkaline Phosphatase 62 Total Protein 6.8 Albumin 3.7 Urine Color Urine Appearance Urine pH Ur Specific [place] Urine Protein Urine Glucose (UA) Urine Ketones Urine Blood Urine Nitrite Urine Bilirubin Urine Urobilinogen Ur Leukocyte Esterase RPR Titer Nonreactive 12/13/18 12:10 WBC RBC Hgb Hct MCV MCH MCHC RDW Plt Count MPV Sodium Potassium Chloride Carbon Dioxide Anion Gap BUN Creatinine Creat Clearance w eGFR Random Glucose Calcium Total Bilirubin AST ALT Alkaline Phosphatase Total Protein Albumin Urine Color Yellow Urine Appearance Clear Urine pH >= 9.0 H D Ur Specific [place] 1.009 L Urine Protein Negative Urine Glucose (UA) Negative Urine Ketones Negative Urine Blood Negative Urine Nitrite Negative Urine Bilirubin Negative Urine Urobilinogen 0.2 Ur Leukocyte Esterase Negative RPR Titer aaox3 ambulating no acute distress spoke with pt regarding yesterdays' episode (chest pain) pt states he feels much better now. No c/o of any chest pain/discomfort. Assessment: 12/14/18 10:26 withdrawal sx Plan: continue detox increase fluids baclofen ordered
[2018-12-14] MEDS: NICOTINE 21 MG/24 HOURS TOPICAL PATCH TD SCH (12:23)
[2018-12-14] MEDS: NICOTINE POLACRILEX 4 MG GUM BUC PRN ×2 (12:26→22:16)
[2018-12-14] MEDS: BACLOFEN 10 MG TABLET (FP) PO SCH ×2 (14:16→21:12)
--- NOTE | 2018-12-14 14:46 | EKG ---
Test Reason : Blood Pressure : / mmHG Vent. Rate : 053 BPM Atrial Rate : 053 BPM P-R Int : 162 ms QRS Dur : 096 ms QT Int : 442 ms P-R-T Axes : 032 036 024 degrees QTc Int : 414 ms SINUS BRADYCARDIA WITH MARKED SINUS ARRHYTHMIA OTHERWISE NORMAL ECG WHEN COMPARED WITH ECG OF 13-DEC-2018 20:51, NO SIGNIFICANT CHANGE WAS FOUND Confirmed by Kd Omalley ([id number]) on 12/14/2018 2:45:38 PM Referred By: Chris Johns Confirmed By:Kd Omalley
--- NOTE | 2018-12-14 14:46 | EKG ---
Test Reason : Blood Pressure : / mmHG Vent. Rate : 053 BPM Atrial Rate : 053 BPM P-R Int : 150 ms QRS Dur : 100 ms QT Int : 420 ms P-R-T Axes : 034 054 033 degrees QTc Int : 394 ms SINUS BRADYCARDIA WITH MARKED SINUS ARRHYTHMIA OTHERWISE NORMAL ECG WHEN COMPARED WITH ECG OF 13-AUG-2018 21:33, NO SIGNIFICANT CHANGE WAS FOUND Confirmed by Kd Omalley ([id number]) on 12/14/2018 2:45:54 PM Referred By: Chris Johns Confirmed By:Kd Omalley
[2018-12-14] MEDS: diazePAM 5 MG TABLET PO PRN (15:48)
[2018-12-14] MEDS: THIAMINE HCL 100 MG TABLET (FP) PO SCH (21:11)
[2018-12-15] MEDS ORDERED: diazePAM 5 MG TABLET PO SCH (06:00)
[2018-12-15] MEDS: BACLOFEN 10 MG TABLET (FP) PO SCH ×3 (06:16→22:16)
[2018-12-15] MEDS ORDERED: METHADONE HCL 10 MG TABLET (FOR DETOX USE ONLY) PO ONE (10:00)
[2018-12-15] MEDS: NICOTINE 21 MG/24 HOURS TOPICAL PATCH TD SCH (10:29)
[2018-12-15] MEDS: PANTOPRAZOLE 20 MG TABLET (FP) PO SCH ×2 (10:29→22:16)
[2018-12-15] MEDS: PRENATAL VITAMINS W/ FOLIC ACID TABLET (FP) PO SCH (10:29)
[2018-12-15] MEDS: NICOTINE POLACRILEX 4 MG GUM BUC PRN ×2 (17:26→21:36)
[2018-12-15] MEDS: FERROUS SO4 325 MG TABLET (FP) PO SCH (17:32)
[2018-12-15] MEDS: THIAMINE HCL 100 MG TABLET (FP) PO SCH (22:16)
[2018-12-15] MEDS: MELATONIN 5 MG TABLETS PO PRN (22:16)
[2018-12-16] MEDS: BACLOFEN 10 MG TABLET (FP) PO SCH (05:29)
[2018-12-16] MEDS ORDERED: METHADONE HCL 5 MG TABLET (FOR DETOX USE ONLY) PO ONE (06:00)
--- NOTE | 2018-12-16 08:36 | DS ---
[facility] Detox Discharge Summary Admission Date: 12/12/18 Discharge Date: 12/16/18 - History Present History: Cannabis Dependence, Opioid Dependence, Sedative Dependence - Physical Exam Results Vital Signs: Vital Signs Temperature 96.8 F L 12/16/18 07:46 Pulse Rate 53 L 12/16/18 07:46 Respiratory Rate 18 12/16/18 07:46 Blood Pressure 98/57 L 12/16/18 07:46 O2 Sat by Pulse Oximetry (%) - Treatment Hospital Course: Detox Protocol Followed, Detoxed Safely, Responded well, Discharged Condition Good, Rehab Referral Accepted - Medication Discharge Medications: Ambulatory Orders NK [No Known Home Medication] 10/26/18 - Diagnosis (1) Dehydration Current Visit: No Status: Acute (2) FELIPE (generalized anxiety disorder) Current Visit: Yes Status: Chronic (3) Opioid dependence with withdrawal Current Visit: Yes Status: Chronic (4) 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
[2018-12-16 10:16] VITALS: BP 102/54; PULSE 57; TEMP 98.1
[2018-12-16] MEDS: FERROUS SO4 325 MG TABLET (FP) PO SCH (10:19)
[2018-12-16] MEDS: NICOTINE 21 MG/24 HOURS TOPICAL PATCH TD SCH (10:19)
[2018-12-16] MEDS: PANTOPRAZOLE 20 MG TABLET (FP) PO SCH (10:20)
[2018-12-16] MEDS: PRENATAL VITAMINS W/ FOLIC ACID TABLET (FP) PO SCH (10:20)
== END 2018-12-16 13:23 | disposition other institution (70) | DRG 773 ==
LOC: YASAS 11:55 → Y6N 15:41
PROVIDERS: ADMIT Surgery; ATTEND Surgery
PROC: HZ2ZZZZ Detoxification Services for Substance Abuse Treatment (ICD-10-PCS; principal; 2018-12-12)
DX: F11.23 Opioid dependence with withdrawal (principal); F11.282 Opioid dependence with opioid-induced sleep disorder; F13.230 Sedative, hypnotic or anxiolytic dependence with withdrawal, uncomplicated; F12.20 Cannabis dependence, uncomplicated; F17.210 Nicotine dependence, cigarettes, uncomplicated; F41.1 Generalized anxiety disorder; F19.282 Other psychoactive substance dependence with psychoactive substance-induced sleep disorder; E86.0 Dehydration; R07.9 Chest pain, unspecified; R00.0 Tachycardia, unspecified; I49.9 Cardiac arrhythmia, unspecified; R94.31 Abnormal electrocardiogram [ECG] [EKG]; G47.00 Insomnia, unspecified
CPT/HCPCS: 36415; 80053; 81003; 85027; 86593; 93005; 93010; J0475

== ENCOUNTER 2018-12-16 13:29 | Inpatient (IN) | payer OTHER ==
--- NOTE | 2018-12-16 13:19 | HP ---
[facility] Rehab Assess/Revision - Admission History Admitted to Rehab [facility]: [facility] Date of Admission to Rehab: 12/16/2018 - Findings Detox History & Physical reviewed: Yes Concur with findings: Yes Inpatient Rehab Admission - Rehab Decision to Admit Inpatient rehab admission?: Yes - Initial Determination Are CD services needed?: Yes Free of communicable disease: Yes Not in need of hospitalization: Yes - Rehab Admission Criteria Previous failed treatment: Yes Poor recovery environment: Yes Comorbidities: Yes Lacks judgement: Yes Patient is meeting Inpatient Rehab admission criteria:: Yes
[~2018-12-16 13:29] MED LIST: ACETAMINOPHEN 325 MG TABLET (FP) PO PRN; IBUPROFEN 400 MG TABLET (FP) PO PRN; LOPERAMIDE HCL 2 MG CAPSULE PO PRN; MAG HYDROX/AL HYDROX/SIMETH 30 ML UNIT-DOSE CUP PO PRN; MAGNESIUM CITRATE 300 ML BOTTLE PO PRN; MAGNESIUM HYDROX 2400MG/30ML ORAL SUSPENSION 30 ML CUP PO PRN; MENTHOL/PHENOL 1 EACH UD MM PRN; P-EPHED 60MG/TRIPROLIDI 2.5MG TABLET PO PRN; guaiFENesin 200 MG/10 ML 10 ML UNIT-DOSE CUPS PO PRN
[2018-12-16] MEDS: MELATONIN 5 MG TABLETS PO PRN (21:44)
[2018-12-16] MEDS: THIAMINE HCL 100 MG TABLET (FP) PO SCH (21:44)
[2018-12-17] MEDS: NICOTINE 21 MG/24 HOURS TOPICAL PATCH TD SCH (10:16)
[2018-12-17] MEDS: PRENATAL VITAMINS W/ FOLIC ACID TABLET (FP) PO SCH (10:16)
[2018-12-17] MEDS: hydrOXYzine PAMOATE 50 MG CAPSULE (FP) PO PRN ×2 (17:32→21:51)
[2018-12-17] MEDS: THIAMINE HCL 100 MG TABLET (FP) PO SCH (21:50)
[2018-12-18] MEDS: NICOTINE 21 MG/24 HOURS TOPICAL PATCH TD SCH (10:40)
[2018-12-18] MEDS: PRENATAL VITAMINS W/ FOLIC ACID TABLET (FP) PO SCH (10:40)
[2018-12-18] MEDS: hydrOXYzine PAMOATE 50 MG CAPSULE (FP) PO PRN ×2 (17:00→21:38)
[2018-12-18] MEDS: THIAMINE HCL 100 MG TABLET (FP) PO SCH (21:37)
[2018-12-18] MEDS: MELATONIN 5 MG TABLETS PO PRN (21:37)
[2018-12-19] MEDS: PRENATAL VITAMINS W/ FOLIC ACID TABLET (FP) PO SCH (10:46)
[2018-12-19] MEDS: NICOTINE 21 MG/24 HOURS TOPICAL PATCH TD SCH (10:46)
[2018-12-19] MEDS: THIAMINE HCL 100 MG TABLET (FP) PO SCH (21:46)
[2018-12-19] MEDS: MELATONIN 5 MG TABLETS PO PRN (21:46)
[2018-12-19] MEDS: hydrOXYzine PAMOATE 50 MG CAPSULE (FP) PO PRN (21:47)
[2018-12-20] MEDS: NICOTINE 21 MG/24 HOURS TOPICAL PATCH TD SCH (11:07)
[2018-12-20] MEDS: PRENATAL VITAMINS W/ FOLIC ACID TABLET (FP) PO SCH (11:07)
[2018-12-20] MEDS: hydrOXYzine PAMOATE 50 MG CAPSULE (FP) PO PRN (21:43)
[2018-12-20] MEDS: THIAMINE HCL 100 MG TABLET (FP) PO SCH (21:44)
[2018-12-20] MEDS: MELATONIN 5 MG TABLETS PO PRN (21:44)
[2018-12-21] MEDS: NICOTINE 21 MG/24 HOURS TOPICAL PATCH TD SCH (10:33)
[2018-12-21] MEDS: PRENATAL VITAMINS W/ FOLIC ACID TABLET (FP) PO SCH (10:33)
[2018-12-21] MEDS: NICOTINE POLACRILEX 4 MG GUM BUC PRN ×3 (13:10→23:46)
[2018-12-21] MEDS: THIAMINE HCL 100 MG TABLET (FP) PO SCH (21:51)
[2018-12-22] MEDS: NICOTINE 21 MG/24 HOURS TOPICAL PATCH TD SCH (11:05)
[2018-12-22] MEDS: PRENATAL VITAMINS W/ FOLIC ACID TABLET (FP) PO SCH (11:05)
[2018-12-22] MEDS: NICOTINE POLACRILEX 4 MG GUM BUC PRN (13:04)
[2018-12-22] MEDS: hydrOXYzine PAMOATE 50 MG CAPSULE (FP) PO PRN (18:23)
[2018-12-22] MEDS: THIAMINE HCL 100 MG TABLET (FP) PO SCH (21:19)
[2018-12-22] MEDS: MELATONIN 5 MG TABLETS PO PRN (21:19)
[2018-12-23] MEDS: hydrOXYzine PAMOATE 50 MG CAPSULE (FP) PO PRN ×2 (01:23→21:40)
[2018-12-23] MEDS: NICOTINE 21 MG/24 HOURS TOPICAL PATCH TD SCH (10:32)
[2018-12-23] MEDS: PRENATAL VITAMINS W/ FOLIC ACID TABLET (FP) PO SCH (10:32)
[2018-12-23] MEDS: NICOTINE POLACRILEX 4 MG GUM BUC PRN (15:56)
[2018-12-23] MEDS: THIAMINE HCL 100 MG TABLET (FP) PO SCH (21:40)
[2018-12-23] MEDS: MELATONIN 5 MG TABLETS PO PRN (21:40)
[2018-12-24] MEDS: NICOTINE 21 MG/24 HOURS TOPICAL PATCH TD SCH (11:13)
[2018-12-24] MEDS: PRENATAL VITAMINS W/ FOLIC ACID TABLET (FP) PO SCH (11:13)
[2018-12-24] MEDS: NICOTINE POLACRILEX 4 MG GUM BUC PRN ×2 (14:52→21:44)
[2018-12-24] MEDS: THIAMINE HCL 100 MG TABLET (FP) PO SCH (21:43)
[2018-12-24] MEDS: MELATONIN 5 MG TABLETS PO PRN (21:43)
[2018-12-24] MEDS: hydrOXYzine PAMOATE 50 MG CAPSULE (FP) PO PRN (21:44)
[2018-12-25] MEDS: NICOTINE 21 MG/24 HOURS TOPICAL PATCH TD SCH (10:24)
[2018-12-25] MEDS: PRENATAL VITAMINS W/ FOLIC ACID TABLET (FP) PO SCH (10:24)
[2018-12-25] MEDS: NICOTINE POLACRILEX 4 MG GUM BUC PRN ×2 (13:42→17:55)
[2018-12-25] MEDS: THIAMINE HCL 100 MG TABLET (FP) PO SCH (21:47)
[2018-12-26] MEDS: NICOTINE 21 MG/24 HOURS TOPICAL PATCH TD SCH (10:55)
[2018-12-26] MEDS: PRENATAL VITAMINS W/ FOLIC ACID TABLET (FP) PO SCH (10:55)
[2018-12-26] MEDS: NICOTINE POLACRILEX 4 MG GUM BUC PRN ×3 (12:42→23:44)
[2018-12-26] MEDS: THIAMINE HCL 100 MG TABLET (FP) PO SCH (21:44)
[2018-12-26] MEDS: hydrOXYzine PAMOATE 50 MG CAPSULE (FP) PO PRN (23:44)
[2018-12-26] MEDS: MELATONIN 5 MG TABLETS PO PRN (23:44)
[2018-12-27] MEDS: PRENATAL VITAMINS W/ FOLIC ACID TABLET (FP) PO SCH (10:32)
[2018-12-27] MEDS: NICOTINE 21 MG/24 HOURS TOPICAL PATCH TD SCH (10:32)
[2018-12-27] MEDS: NICOTINE POLACRILEX 4 MG GUM BUC PRN ×3 (13:34→21:54)
[2018-12-27] MEDS: hydrOXYzine PAMOATE 50 MG CAPSULE (FP) PO PRN (18:15)
[2018-12-27] MEDS: THIAMINE HCL 100 MG TABLET (FP) PO SCH (21:53)
[2018-12-27] MEDS: MELATONIN 5 MG TABLETS PO PRN (21:54)
[2018-12-28 07:02] VITALS: PULSE 64; TEMP 97.8
[2018-12-28] MEDS: NICOTINE 21 MG/24 HOURS TOPICAL PATCH TD SCH (10:36)
[2018-12-28] MEDS: PRENATAL VITAMINS W/ FOLIC ACID TABLET (FP) PO SCH (10:37)
[2018-12-28] MEDS: NICOTINE POLACRILEX 4 MG GUM BUC PRN ×4 (13:02→21:50)
[2018-12-28] MEDS: THIAMINE HCL 100 MG TABLET (FP) PO SCH (21:49)
[2018-12-28] MEDS: MELATONIN 5 MG TABLETS PO PRN (21:50)
[2018-12-29 06:54] VITALS: BP 152/67
--- NOTE | 2018-12-29 10:20 | PN ---
BHS Progress Note Note: PT REQUESTING EARLY DISCHARGE TODAY. PT WAS REFERRED TO CD AFTERCARE AT [facility] ON [address] [id number]. PT REPORTS HE HAS NO PCP AND HAS ENCOURAGED PT TO EXPLORE GETTING ONE AT [facility]/CALL HIS INSURANCE TO HELP SET HIM UP WITH A PCP. PT IS ALERT O X 3. DENIES S/H/I. RX FOR NARCAN NASAL SPRAY BELOW WAS ELECTRONICALLY SENT TO HIS HOME PHARMACY [facility] [employer]. Home Medications Medication Instructions Recorded Naloxone HCl [Narcan] 4 mg NS ONCE #1 spray 12/29/18 Vital Signs 12/29/18 12/29/18 12/29/18 03:30 06:30 06:53 Temperature 97.8 F Pulse Rate 64 Respiratory 18 18 18 Rate Blood Pressure 152/67 NAD MEDICALLY STABLE PLAN:D/C PT TODAY FOLLOW UP WITH CD AFTERCARE RECOMMENDED ON 12/31/18 AT 10:00 A.M. FOLLOW UP WITH [facility] FOR MEDICAL MANAGEMENT 1 -2 WEEKS AFTER DISCHARGE.
[2018-12-29] MEDS: PRENATAL VITAMINS W/ FOLIC ACID TABLET (FP) PO SCH (11:08)
[2018-12-29] MEDS: NICOTINE 21 MG/24 HOURS TOPICAL PATCH TD SCH (11:08)
== END 2018-12-29 10:50 | disposition home or self-care (01) | DRG 772 ==
LOC: YASAS 13:29 → Y5N 13:30
PROVIDERS: ADMIT Neuromusculoskeletal Medicine & OMM; ATTEND Neuromusculoskeletal Medicine & OMM
PROC: HZ42ZZZ Group Counseling for Substance Abuse Treatment, Cognitive-Behavioral (ICD-10-PCS; principal; 2018-12-16)
DX: F11.20 Opioid dependence, uncomplicated (principal); F13.20 Sedative, hypnotic or anxiolytic dependence, uncomplicated; F12.20 Cannabis dependence, uncomplicated; F17.210 Nicotine dependence, cigarettes, uncomplicated

== ENCOUNTER 2019-02-20 11:27 | Inpatient (IN) | payer OTHER ==
[2019-02-20 12:34] VITALS: BMI 29.9
--- NOTE | 2019-02-20 13:08 | HP ---
COWS - Scale Resting Pulse: 0= [place] 80 or Below Sweatin= Chills/Flushing Restless Observation: 1= Difficult to Sit Still Pupil Size: 1= Pupils >than Normal Bone or Joint Aches: 2= Severe Diffuse Aches Runny Nose/ Eye Tearin= Runny Nose/Eyes GI Upset > 30mins: 2= Nausea/Diarrhea Tremor Observation: 2= Slight Tremor Visible Yawning Observation: 2= >3x During Session Anxiety or Irritability: 2=Irritable/Anxious Goose Flesh Skin: 0=Smooth Skin COWS Score: 15 CIWA Score - Admission Criteria [facility]ASAS Guidelines: Admission for Medically Managed Detox: Requires at least one of the followin. CIWA greater than 12 2. Seizures within the past 24 hours 3. Delirium tremens within the past 24 hours 4. Hallucinations within the past 24 hours 5. Acute intervention needed for co occurring medical disorder 6. Acute intervention needed for co occurring psychiatric disorder 7. Severe withdrawal that cannot be handled at a lower level of care (continued vomiting, continued diarrhea, abnormal vital signs) requiring intravenous medication and/or fluids 8. Admission ROS [facility] Chief Complaint: i need help to stop using heroin,marijuana Allergies/Adverse Reactions: Allergies Allergy/AdvReac Type Severity Reaction Status Date / Time No Known Allergies Allergy Verified 02/20/19 12:30 History of Present Illness: this 23 years old male with heroin and marijuana dependence,seeking detox, withdrawal symptom multiple admissions in detox,and rehab but keep relapsing last detox [facility] 12/12/18 to 12/16/18 rehab 12/16/18 to 12/29/18 nicotine dependence requesting nicotine patch and gum no significant period of sobriety plan for halfway residential or rehab Exam Limitations: No Limitations - Ebola screening Have you traveled outside of the country in the last 21 days: No (N) Have you had contact with anyone from an Ebola affected area: No Do you have a fever: No - Review of Systems Constitutional: Chills, Loss of Appetite, Malaise, Night Sweats, Changes in sleep EENT: reports: Tearing, Nose Congestion Respiratory: reports: No Symptoms reported Cardiac: reports: No Symptoms Reported GI: reports: Diarrhea, Nausea, Vomiting : reports: No Symptoms Reported Musculoskeletal: reports: Back Pain, Joint Pain, Muscle Pain, Joint Stiffness Integumentary: reports: Dryness Neuro: reports: Headache, Tremors Endocrine: reports: No Symptoms Reported Hematology: reports: No Symptoms Reported Psychiatric: reports: No Sypmtoms Reported, Judgement Intact, Mood/Affect Appropiate, Orientated x3 Other Systems: Reviewed and Negative Patient History - Patient Medical History Hx Anemia: No Hx Asthma: No Hx Chronic Obstructive Pulmonary Disease (COPD): No Hx Cancer: No Hx Cardiac Disorders: No Hx Congestive Heart Failure: No Hx Hypertension: No Hx Hypercholesterolemia: No Hx Pacemaker: No HX Cerebrovascular Accident: No Hx Seizures: No Hx Dementia: No Hx Diabetes: No Hx Gastrointestinal Disorders: No Hx Liver Disease: No Hx Genitourinary Disorders: No Hx Sexually Transmitted Disorders: No Hx Renal Disease (ESRD): No Hx Thyroid Disease: No Hx Human Immunodeficiency Virus (HIV): No (2018 last negative) Hx Hepatitis C: No Hx Depression: No Hx Suicide Attempt: No Hx Bipolar Disorder: No Hx Schizophrenia: No Other Medical History: no suicidal,no homicidal - Patient Surgical History Past Surgical History: No Hx Neurologic Surgery: No Hx Cataract Extraction: No Hx Cardiac Surgery: No Hx Lung Surgery: No Hx Breast Surgery: No Hx Breast Biopsy: No Hx Abdominal Surgery: No Hx Appendectomy: No Hx Cholecystectomy: No Hx Genitourinary Surgery: No Hx Section: No Hx Orthopedic Surgery: No Anesthesia Reaction: No - PPD History Previous Implant?: Yes Documented Results: Negative w/proof Date: 10/28/18 Results: 0 mm. PPD to be Administered?: No - Smoking Cessation Smoking history: Current every day smoker Have you smoked in the past 12 months: Yes Aproximately how many cigarettes per day: 20 Cigars Per Day: 0 Hx Chewing Tobacco Use: No Initiated information on smoking cessation: Yes 'Breaking Loose' booklet given: 02/20/19 - Substance & Tx. History Hx Alcohol Use: No Hx Substance Use: Yes Substance Use Type: Heroin, Marijuana Hx Substance Use Treatment: Yes ([facility] detox 12/12/18 to 12/16/18 rehab 12/16/18 to 12/29/18) - Substances abused Heroin Other (specify): sniff Frequency: Daily Amount used: 10 bags Age of first use: 22 Date of last use: 02/20/19 Marijuana/Hashish Substance route: Smoking Frequency: 1-2 times per week Amount used: 10$ Age of first use: 14 Date of last use: 02/17/19 Family Disease History - Family Disease History Family Disease History: Diabetes: Grandparent (HTN,THYROID), Heart Disease: Grandparent, CA: Grandparent, Father (THROAT.) Admission Physical Exam [facility] - Vital Signs Vital Signs: Vital Signs - 24 hr 02/20/19 12:30 Temperature 96.2 F L Pulse Rate 54 L Respiratory 18 Rate Blood Pressure 148/67 - Physical General Appearance: Yes: Moderate Distress, Tremorous, Irritable, Sweating, Anxious HEENTM: Yes: Normal ENT Inspection, BRANDIE, Pharynx Normal, Nasal Congestion Respiratory: Yes: Within Normal Limits, Lungs Clear, Normal Breath Sounds Neck: Yes: Within Normal Limits, Supple, Trachea in good position Breast: Yes: Within Normal Limits Cardiology: Yes: Within Normal Limits, Regular Rhythm, Regular Rate, S1, S2 Abdominal: Yes: Within Normal Limits, Normal Bowel Sounds, Non Tender, Flat, Soft Genitourinary: Yes: Within Normal Limits Back: Yes: Muscle Spasm Musculoskeletal: Yes: full range of Motion, Back pain, Muscle Pain Extremities: Yes: Tremors Neurological: Yes: public relations coordinator II-XII NML intact, Alert, Motor Strength 5/5 Integumentary: Yes: Dry Lymphatic: Yes: Within Normal Limits - Diagnostic (1) Opioid dependence with withdrawal Current Visit: No Status: Chronic (2) Dehydration Current Visit: No Status: Acute (3) Cannabis dependence Current Visit: No Status: Chronic (4) Nicotine dependence Current Visit: No Status: Chronic Qualifiers: Nicotine product type: cigarettes Substance use status: uncomplicated Qualified Code(s): F17.210 - Nicotine dependence, cigarettes, uncomplicated Cleared for Admission [facility] - Detox or Rehab [facility] Level of Care: Medically Managed Detox Regimen/Protocol: Methadone Urine Drug Screen - Control Is test valid?: Yes Inpatient Rehab Admission - Rehab Decision to Admit Inpatient rehab admission?: No
[2019-02-20] MEDS ORDERED: cloNIDine HCL 0.1 MG TABLET PO PRN (13:16)
[2019-02-20] MEDS ORDERED: METHADONE HCL 10 MG TABLET (FOR DETOX USE ONLY) PO ONE ×2 (13:17→23:00)
[2019-02-20] MEDS ORDERED: hydrOXYzine PAMOATE 25 MG CAPSULE (FP) PO PRN (13:21)
[2019-02-20] MEDS ORDERED: MAGNESIUM CITRATE 300 ML BOTTLE PO PRN (13:21)
[2019-02-20] MEDS ORDERED: METHOCARBAMOL 500 MG TABLET PO PRN (13:21)
[2019-02-20] MEDS ORDERED: MAGNESIUM HYDROX 2400MG/30ML ORAL SUSPENSION 30 ML CUP PO PRN (13:21)
[2019-02-20] MEDS ORDERED: MAG HYDROX/AL HYDROX/SIMETH 30 ML UNIT-DOSE CUP PO PRN (13:21)
[2019-02-20] MEDS ORDERED: IBUPROFEN 400 MG TABLET (FP) PO PRN (13:21)
[2019-02-20] MEDS ORDERED: MENTHOL/PHENOL 1 EACH UD MM PRN (13:21)
[2019-02-20] MEDS ORDERED: BISMUTH SUBSALICYLATE 524 MG/30 ML UD PO PRN (13:21)
[2019-02-20] MEDS ORDERED: ACETAMINOPHEN 325 MG TABLET (FP) PO PRN ×2 (13:21)
[2019-02-20] MEDS: diazePAM 5 MG TABLET PO PRN (14:04)
[2019-02-20] MEDS: NICOTINE POLACRILEX 4 MG GUM BUC PRN (14:47)
[2019-02-20] MEDS: THIAMINE HCL 100 MG TABLET (FP) PO SCH (22:19)
[2019-02-21 03:24] LABS: URINE APPEARANCE CLEAR; URINE BILIRUBIN NEGATIVE (NEGATIVE); URINE COLOR YELLOW; URINE GLUCOSE (UA) NEGATIVE (NEGATIVE); URINE KETONE NEGATIVE (NEGATIVE); URINE LEUK ESTERASE NEGATIVE (NEGATIVE); URINE NITRITE NEGATIVE (NEGATIVE); URINE PROTEIN NEGATIVE (NEGATIVE); URINE UROBILINOGEN 0.2 mg/dL (0.2-1.0)
--- NOTE | 2019-02-21 09:42 | PN ---
BHS COWS - Scale Resting Pulse: 0= [place] 80 or Below Sweatin=Flushed/Facial Moisture Restless Observation: 1= Difficult to Sit Still Pupil Size: 0= Normal to Room Light Bone or Joint Aches: 2= Severe Diffuse Aches Runny Nose/ Eye Tearin= Nasal Congestion GI Upset > 30mins: 0= None Tremor Observation of Outstretched Hands: 2= Slight Tremor Visible Yawning Observation: 2= >3x During Session Anxiety or Irritability: 1=Feels Anxious/Irritable Goose Flesh Skin: 0=Smooth Skin COWS Score: 11 BHS Progress Note (SOAP) Subjective: body aches sweats shakes interrupted sleep irritable agitation Objective: 02/21/19 09:41 Vital Signs Temperature 97.9 F 02/21/19 09:17 Pulse Rate 51 L 02/21/19 09:17 Respiratory Rate 20 02/21/19 09:17 Blood Pressure 112/71 02/21/19 09:17 O2 Sat by Pulse Oximetry (%) Laboratory Tests 02/20/19 23:59 Urine Color Yellow Urine Appearance Clear Urine pH 5.0 D Ur Specific [place] 1.014 Urine Protein Negative Urine Glucose (UA) Negative Urine Ketones Negative Urine Blood Negative Urine Nitrite Negative Urine Bilirubin Negative Urine Urobilinogen 0.2 Ur Leukocyte Esterase Negative rest of labs pending aaox3 ambulating no acute distress Assessment: 02/21/19 09:41 withdrawal sx Plan: continue detox increase fluids pending labs
[2019-02-21 09:52] LABS: HEMATOCRIT 39.9 % (35.4-49); HEMOGLOBIN 13.8 GM/dL (11.7-16.9); MCHC 34.6 g/dl (32.0-35.9); MEAN CELL VOLUME 83.9 fl (80-96); MEAN PLT VOLUME 8.5 fl (7.5-11.1); RBC 4.76 M/mm3 (4.00-5.60); RDW 13.4 % (11.9-15.9); WHITE BLOOD COUNT 5.5 K/mm3 (4.0-10.0)
[2019-02-21] MEDS ORDERED: METHADONE HCL 10 MG TABLET (FOR DETOX USE ONLY) PO ONE (10:00)
[2019-02-21 10:02] LABS: ALBUMIN 3.6 g/dl (3.4-5.0); BILIRUBIN,TOTAL 0.4 mg/dL (0.2-1); BLOOD UREA NITROGEN 11.9 mg/dL (7-18); CALCIUM 8.7 mg/dL (8.5-10.1); POTASSIUM 4.4 mmol/L (3.5-5.1); TOT PROT 6.4 g/dl (6.4-8.2)
[2019-02-21 10:32] LABS: PLATELET COUNT 198 K/MM3 (134-434)
[2019-02-21] MEDS: NICOTINE 21 MG/24 HOURS TOPICAL PATCH TD SCH (10:32)
[2019-02-21] MEDS: PRENATAL VITAMINS W/ FOLIC ACID TABLET (FP) PO SCH (10:32)
[2019-02-21] MEDS: diazePAM 5 MG TABLET PO PRN ×3 (10:36→22:25)
[2019-02-21] MEDS: NICOTINE POLACRILEX 4 MG GUM BUC PRN ×3 (12:51→22:28)
[2019-02-21] MEDS: MELATONIN 5 MG TABLETS PO PRN (22:26)
[2019-02-21] MEDS: THIAMINE HCL 100 MG TABLET (FP) PO SCH (22:41)
[2019-02-22] MEDS ORDERED: METHADONE HCL 10 MG TABLET (FOR DETOX USE ONLY) PO ONE (10:00)
[2019-02-22] MEDS: NICOTINE 21 MG/24 HOURS TOPICAL PATCH TD SCH (10:20)
[2019-02-22] MEDS: PRENATAL VITAMINS W/ FOLIC ACID TABLET (FP) PO SCH (10:21)
--- NOTE | 2019-02-22 10:24 | PN ---
BHS COWS - Scale Resting Pulse: 0= [place] 80 or Below Sweatin=Flushed/Facial Moisture Restless Observation: 1= Difficult to Sit Still Pupil Size: 0= Normal to Room Light Bone or Joint Aches: 2= Severe Diffuse Aches Runny Nose/ Eye Tearin= Runny Nose/Eyes GI Upset > 30mins: 1= Stomach Cramp Tremor Observation of Outstretched Hands: 2= Slight Tremor Visible Yawning Observation: 2= >3x During Session Anxiety or Irritability: 2=Irritable/Anxious Goose Flesh Skin: 0=Smooth Skin COWS Score: 14 BHS Progress Note (SOAP) Subjective: irritable sweats shakes interrupted sleep tired Objective: 02/22/19 10:27 Vital Signs Temperature 97.7 F 02/22/19 10:03 Pulse Rate 66 02/22/19 10:03 Respiratory Rate 16 02/22/19 10:03 Blood Pressure 106/62 02/22/19 10:03 O2 Sat by Pulse Oximetry (%) Laboratory Tests 02/20/19 02/21/19 02/21/19 23:59 07:00 07:00 WBC 5.5 RBC 4.76 Hgb 13.8 Hct 39.9 MCV 83.9 MCH 29.0 MCHC 34.6 RDW 13.4 Plt Count 198 MPV 8.5 Sodium 142 Potassium 4.4 Chloride 105 Carbon Dioxide 32 Anion Gap 4 L BUN 11.9 Creatinine 1.0 Est GFR (CKD-EPI)AfAm 120.70 Est GFR (CKD-EPI)NonAf 104.14 Random Glucose 88 Calcium 8.7 Total Bilirubin 0.4 AST 9 L ALT 19 Alkaline Phosphatase 62 Total Protein 6.4 Albumin 3.6 Urine Color Yellow Urine Appearance Clear Urine pH 5.0 D Ur Specific [place] 1.014 Urine Protein Negative Urine Glucose (UA) Negative Urine Ketones Negative Urine Blood Negative Urine Nitrite Negative Urine Bilirubin Negative Urine Urobilinogen 0.2 Ur Leukocyte Esterase Negative RPR Titer 02/21/19 07:00 WBC RBC Hgb Hct MCV MCH MCHC RDW Plt Count MPV Sodium Potassium Chloride Carbon Dioxide Anion Gap BUN Creatinine Est GFR (CKD-EPI)AfAm Est GFR (CKD-EPI)NonAf Random Glucose Calcium Total Bilirubin AST ALT Alkaline Phosphatase Total Protein Albumin Urine Color Urine Appearance Urine pH Ur Specific [place] Urine Protein Urine Glucose (UA) Urine Ketones Urine Blood Urine Nitrite Urine Bilirubin Urine Urobilinogen Ur Leukocyte Esterase RPR Titer Nonreactive aaox3 ambulating no acute distress Assessment: 02/22/19 10:27 withdrawal sx Plan: continue detox increase fluids
[2019-02-22] MEDS: NICOTINE POLACRILEX 4 MG GUM BUC PRN ×2 (14:14→21:37)
[2019-02-22] MEDS: MELATONIN 5 MG TABLETS PO PRN (21:36)
[2019-02-22] MEDS: diazePAM 5 MG TABLET PO PRN (21:36)
[2019-02-22] MEDS: THIAMINE HCL 100 MG TABLET (FP) PO SCH (21:36)
[2019-02-23] MEDS ORDERED: METHADONE HCL 10 MG TABLET (FOR DETOX USE ONLY) ONE (08:38)
[2019-02-23] MEDS ORDERED: METHADONE HCL 5 MG TABLET (FOR DETOX USE ONLY) ONE (08:38)
[2019-02-23] MEDS: NICOTINE 21 MG/24 HOURS TOPICAL PATCH TD SCH (09:55)
[2019-02-23] MEDS: PRENATAL VITAMINS W/ FOLIC ACID TABLET (FP) PO SCH (09:56)
[2019-02-23] MEDS: diazePAM 5 MG TABLET PO PRN (09:57)
[2019-02-23] MEDS: NICOTINE POLACRILEX 4 MG GUM BUC PRN ×2 (09:57→13:40)
[2019-02-23] MEDS ORDERED: METHADONE (DETOX) 10 MG, METHADONE (DETOX) 5 MG PO ONE (10:00)
[2019-02-23] MEDS ORDERED: METHADONE HCL 10 MG TABLET (FOR DETOX USE ONLY) PO ONE (10:00)
--- NOTE | 2019-02-23 10:34 | PN ---
BHS COWS - Scale Resting Pulse: 0= [place] 80 or Below Sweatin= Chills/Flushing Restless Observation: 1= Difficult to Sit Still Pupil Size: 0= Normal to Room Light Bone or Joint Aches: 2= Severe Diffuse Aches Runny Nose/ Eye Tearin= Nasal Congestion GI Upset > 30mins: 0= None Tremor Observation of Outstretched Hands: 2= Slight Tremor Visible Yawning Observation: 1= 1-2x During Session Anxiety or Irritability: 2=Irritable/Anxious Goose Flesh Skin: 0=Smooth Skin COWS Score: 10 BHS Progress Note (SOAP) Subjective: sweats shakes interrupted sleep anxiety Objective: 02/23/19 10:33 Vital Signs Temperature 97.2 F L 02/23/19 09:56 Pulse Rate 62 02/23/19 09:56 Respiratory Rate 18 02/23/19 09:56 Blood Pressure 118/80 02/23/19 09:56 O2 Sat by Pulse Oximetry (%) Laboratory Tests 02/20/19 02/21/19 02/21/19 23:59 07:00 07:00 WBC 5.5 RBC 4.76 Hgb 13.8 Hct 39.9 MCV 83.9 MCH 29.0 MCHC 34.6 RDW 13.4 Plt Count 198 MPV 8.5 Sodium 142 Potassium 4.4 Chloride 105 Carbon Dioxide 32 Anion Gap 4 L BUN 11.9 Creatinine 1.0 Est GFR (CKD-EPI)AfAm 120.70 Est GFR (CKD-EPI)NonAf 104.14 Random Glucose 88 Calcium 8.7 Total Bilirubin 0.4 AST 9 L ALT 19 Alkaline Phosphatase 62 Total Protein 6.4 Albumin 3.6 Urine Color Yellow Urine Appearance Clear Urine pH 5.0 D Ur Specific [place] 1.014 Urine Protein Negative Urine Glucose (UA) Negative Urine Ketones Negative Urine Blood Negative Urine Nitrite Negative Urine Bilirubin Negative Urine Urobilinogen 0.2 Ur Leukocyte Esterase Negative RPR Titer 02/21/19 07:00 WBC RBC Hgb Hct MCV MCH MCHC RDW Plt Count MPV Sodium Potassium Chloride Carbon Dioxide Anion Gap BUN Creatinine Est GFR (CKD-EPI)AfAm Est GFR (CKD-EPI)NonAf Random Glucose Calcium Total Bilirubin AST ALT Alkaline Phosphatase Total Protein Albumin Urine Color Urine Appearance Urine pH Ur Specific [place] Urine Protein Urine Glucose (UA) Urine Ketones Urine Blood Urine Nitrite Urine Bilirubin Urine Urobilinogen Ur Leukocyte Esterase RPR Titer Nonreactive aaox3 ambulating no acute distress Assessment: 02/23/19 10:34 withdrawal sx Plan: continue detox increase fluids
--- NOTE | 2019-02-23 18:00 | PN ---
BHS Progress Note Note: Pt. is c/o of anxiety and withdrawal symptoms. 1 time order of 10mg of valium is prescribed.
[2019-02-23] MEDS ORDERED: diazePAM 5 MG TABLET PO ONE (18:15)
[2019-02-23] MEDS: THIAMINE HCL 100 MG TABLET (FP) PO SCH (22:00)
[2019-02-24] MEDS ORDERED: METHADONE HCL 5 MG TABLET (FOR DETOX USE ONLY) PO ONE (06:00)
[2019-02-24] MEDS ORDERED: METHADONE HCL 10 MG TABLET (FOR DETOX USE ONLY) PO ONE (10:00)
[2019-02-24] MEDS: PRENATAL VITAMINS W/ FOLIC ACID TABLET (FP) PO SCH (10:22)
[2019-02-24] MEDS: NICOTINE 21 MG/24 HOURS TOPICAL PATCH TD SCH (10:22)
--- NOTE | 2019-02-24 11:32 | PN ---
BHS COWS - Scale Resting Pulse: 0= [place] 80 or Below Sweatin= Chills/Flushing Restless Observation: 0= Sits Still Pupil Size: 0= Normal to Room Light Bone or Joint Aches: 1= Mild Discomfort Runny Nose/ Eye Tearin= None GI Upset > 30mins: 0= None Tremor Observation of Outstretched Hands: 1= Tremor Cammal, Not Seen Yawning Observation: 2= >3x During Session Anxiety or Irritability: 0= None Goose Flesh Skin: 0=Smooth Skin COWS Score: 5 S Progress Note (SOAP) Subjective: tired feeling better sweats Objective: 02/24/19 11:32 Vital Signs Temperature 97.7 F 02/24/19 09:27 Pulse Rate 50 L 02/24/19 09:27 Respiratory Rate 16 02/24/19 09:27 Blood Pressure 108/50 L 02/24/19 09:27 O2 Sat by Pulse Oximetry (%) aaox3 ambulating no acute distress Assessment: 02/24/19 11:32 mild withdrawal sx Plan: continue detox increase fluids valium 10mg prn ordered until he is d/c tomorrow.
[2019-02-24] MEDS: diazePAM 5 MG TABLET PO PRN ×2 (13:15→23:57)
[2019-02-24] MEDS: NICOTINE POLACRILEX 4 MG GUM BUC PRN ×3 (13:16→20:46)
[2019-02-24] MEDS: THIAMINE HCL 100 MG TABLET (FP) PO SCH (23:35)
[2019-02-25] MEDS ORDERED: METHADONE HCL 5 MG TABLET (FOR DETOX USE ONLY) PO ONE (06:00)
--- NOTE | 2019-02-25 09:15 | DS ---
[facility] Detox Discharge Summary Admission Date: 02/20/19 Discharge Date: 02/25/19 - History Present History: Cannabis Dependence, Opioid Dependence, Sedative Dependence - Physical Exam Results Vital Signs: Vital Signs Temperature 97.2 F L 02/25/19 06:00 Pulse Rate 56 L 02/25/19 06:00 Respiratory Rate 18 02/25/19 06:00 Blood Pressure 92/43 L 02/25/19 06:00 O2 Sat by Pulse Oximetry (%) - Treatment Hospital Course: Detox Protocol Followed, Detoxed Safely, Responded well, Discharged Condition Good, Rehab Referral Accepted - Medication Discharge Medications: Ambulatory Orders NK [No Known Home Medication] 02/20/19 - Diagnosis (1) Substance-induced sleep disorder Current Visit: No Status: Acute (2) Cannabis dependence Current Visit: Yes Status: Chronic (3) FELIPE (generalized anxiety disorder) Current Visit: Yes Status: Chronic (4) Nicotine dependence Current Visit: Yes Status: Chronic Qualifiers: Nicotine product type: cigarettes Substance use status: uncomplicated Qualified Code(s): F17.210 - Nicotine dependence, cigarettes, uncomplicated (5) Opioid dependence with withdrawal Current Visit: Yes Status: Chronic (6) Sedative hypnotic or anxiolytic dependence Current Visit: Yes Status: Chronic (7) Opioid-induced sleep disorder Current Visit: No Status: Suspected - AMA Did Patient Leave Against Medical Advice: No (pt declined aftercare; going home)
[2019-02-25 09:49] VITALS: BP 100/62; PULSE 66; TEMP 98.3
[2019-02-25] MEDS: PRENATAL VITAMINS W/ FOLIC ACID TABLET (FP) PO SCH (10:20)
[2019-02-25] MEDS: NICOTINE 21 MG/24 HOURS TOPICAL PATCH TD SCH (10:20)
== END 2019-02-25 13:10 | disposition home or self-care (01) | DRG 773 ==
LOC: YASAS 11:27 → Y6N 13:14
PROVIDERS: ADMIT Surgery; ATTEND Surgery
PROC: HZ2ZZZZ Detoxification Services for Substance Abuse Treatment (ICD-10-PCS; principal; 2019-02-20)
DX: F11.23 Opioid dependence with withdrawal (principal); F13.230 Sedative, hypnotic or anxiolytic dependence with withdrawal, uncomplicated; F12.20 Cannabis dependence, uncomplicated; F19.282 Other psychoactive substance dependence with psychoactive substance-induced sleep disorder; F41.1 Generalized anxiety disorder; E86.0 Dehydration
CPT/HCPCS: 36415; 80053; 81003; 85027; 86593

== ENCOUNTER 2019-03-26 17:39 | Inpatient (IN) | payer OTHER ==
[2019-03-26 19:30] VITALS: BMI 29.8
--- NOTE | 2019-03-26 21:26 | HP ---
COWS - Scale Resting Pulse: 0= [place] 80 or Below Sweatin=Flushed/Facial Moisture Restless Observation: 1= Difficult to Sit Still Pupil Size: 1= Pupils >than Normal Bone or Joint Aches: 4=Acute Joint/Muscle Pain Runny Nose/ Eye Tearin= Runny Nose/Eyes GI Upset > 30mins: 0= None Tremor Observation: 0= None Yawning Observation: 2= >3x During Session Anxiety or Irritability: 4=Extreme Anxiety Goose Flesh Skin: 0=Smooth Skin COWS Score: 16 CIWA Score - Admission Criteria OASAS Guidelines: Admission for Medically Managed Detox: Requires at least one of the followin. CIWA greater than 12 2. Seizures within the past 24 hours 3. Delirium tremens within the past 24 hours 4. Hallucinations within the past 24 hours 5. Acute intervention needed for co occurring medical disorder 6. Acute intervention needed for co occurring psychiatric disorder 7. Severe withdrawal that cannot be handled at a lower level of care (continued vomiting, continued diarrhea, abnormal vital signs) requiring intravenous medication and/or fluids 8. Admission ROS [facility] Chief Complaint: C/O WITHDRAWAL SX'S. Allergies/Adverse Reactions: Allergies Allergy/AdvReac Type Severity Reaction Status Date / Time No Known Allergies Allergy Verified 02/20/19 12:30 History of Present Illness: 23 Y.O. MALE WITH OPIOID DEPENDENCE HERE FOR DETOX. CLIENT PRESENTS WITH C/O WITHDRAWA SX'S. COWS 16. SELF REFERRED. LAST DC 02/2019. REPORTS RELAPSING SOON AFTER. SNIFFING HEROIN DAILY. LAST USE EARLY THIS MORNING. DENIES HX/O DRUG OVERDOSE. REPORTS LONGEST CLEAN TIME 90 DAYS. DENIES ANY SIGNIFICANT PERIOD OF SOBRIETY IN THE PAST YEAR. DOMICILED, UNEMPLOYED, DENIES LEGALS PMHX- DENIES PSYCH- ANXIETY Exam Limitations: No Limitations - Ebola screening Have you traveled outside of the country in the last 21 days: No (N) Have you had contact with anyone from an Ebola affected area: No Do you have a fever: No - Review of Systems Constitutional: Chills, Malaise, Night Sweats, Changes in sleep EENT: reports: No Symptoms Reported Respiratory: reports: No Symptoms reported Cardiac: reports: No Symptoms Reported GI: reports: Constipated : reports: No Symptoms Reported Musculoskeletal: reports: Joint Pain Integumentary: reports: Flushing, Sweating Neuro: reports: No Symptoms reported Endocrine: reports: No Symptoms Reported Hematology: reports: No Symptoms Reported Psychiatric: reports: Orientated x3, Anxious, Depressed (DENIES SI) Other Systems: Reviewed and Negative Patient History - Patient Medical History Hx Anemia: No Hx Asthma: No Hx Chronic Obstructive Pulmonary Disease (COPD): No Hx Cancer: No Hx Cardiac Disorders: No Hx Congestive Heart Failure: No Hx Hypertension: No Hx Hypercholesterolemia: No Hx Pacemaker: No HX Cerebrovascular Accident: No Hx Seizures: No Hx Dementia: No Hx Diabetes: No Hx Gastrointestinal Disorders: No Hx Liver Disease: No Hx Genitourinary Disorders: No Hx Sexually Transmitted Disorders: No Hx Renal Disease (ESRD): No Hx Thyroid Disease: No Hx Human Immunodeficiency Virus (HIV): No (2018 last negative) Hx Hepatitis C: No Hx Depression: No Hx Suicide Attempt: No Hx Bipolar Disorder: No Hx Schizophrenia: No Other Medical History: ANXIETY - Patient Surgical History Past Surgical History: No Hx Neurologic Surgery: No Hx Cataract Extraction: No Hx Cardiac Surgery: No Hx Lung Surgery: No Hx Breast Surgery: No Hx Breast Biopsy: No Hx Abdominal Surgery: No Hx Appendectomy: No Hx Cholecystectomy: No Hx Genitourinary Surgery: No Hx Section: No Hx Orthopedic Surgery: No Anesthesia Reaction: No - PPD History Previous Implant?: Yes Documented Results: Negative w/proof Implanted On Prior [facility] Admission?: Yes Date: 10/28/18 Results: 0 mm. PPD to be Administered?: No - Smoking Cessation Smoking history: Current every day smoker Have you smoked in the past 12 months: Yes Aproximately how many cigarettes per day: 20 Cigars Per Day: 0 Hx Chewing Tobacco Use: No Initiated information on smoking cessation: Yes 'Breaking Loose' booklet given: 03/26/19 - Substance & Tx. History Hx Alcohol Use: Yes Hx Substance Use: Yes Substance Use Type: Heroin, Marijuana Hx Substance Use Treatment: Yes ([facility]) - Substances abused Heroin Other (specify): sniff Frequency: Daily Amount used: 20 bags Age of first use: 22 Date of last use: 03/25/19 Marijuana/Hashish Substance route: Smoking Frequency: 1-2 times per week Amount used: 10$ Age of first use: 14 Date of last use: 03/17/19 Family Disease History - Family Disease History Family Disease History: Diabetes: Grandparent (HTN,THYROID), Heart Disease: Grandparent, [place]: Grandparent, Father (THROAT.) Admission Physical Exam [facility] - Vital Signs Vital Signs: Vital Signs - 24 hr 03/26/19 19:27 Temperature 98.2 F Pulse Rate 69 Respiratory 18 Rate Blood Pressure 121/66 - Physical General Appearance: Yes: Moderate Distress, Anxious HEENTM: Yes: EOMI, Normocephalic, Normal Voice, BRANDIE, Pharynx Normal, Nasal Congestion, Rhinorrhea Respiratory: Yes: Chest Non-Tender, Lungs Clear, Normal Breath Sounds, No Respiratory Distress, No Accessory Muscle Use Neck: Yes: No masses,lesions,Nodules, Supple, Trachea in good position Breast: Yes: Breast Exam Deferred Cardiology: Yes: Regular Rhythm, Regular Rate, S1, S2 Abdominal: Yes: Non Tender, Soft, Decreased BS, Protuberent Genitourinary: Yes: Within Normal Limits Back: Yes: Normal Inspection Musculoskeletal: Yes: full range of Motion, Gait Steady Extremities: Yes: Normal Capillary Refill, Normal Range of Motion, Non-Tender Neurological: Yes: Fully Oriented, Alert, Motor Strength 5/5, Depressed Affect ( DENIES SI/- DECLINES PSYCH EVAL) Integumentary: Yes: Warm Lymphatic: Yes: Within Normal Limits - Diagnostic (1) Substance-induced sleep disorder Current Visit: Yes Status: Suspected (2) Cannabis dependence Current Visit: Yes Status: Acute (3) FELIPE (generalized anxiety disorder) Current Visit: Yes Status: Chronic (4) Nicotine dependence Current Visit: Yes Status: Chronic Qualifiers: Nicotine product type: cigarettes Substance use status: uncomplicated Qualified Code(s): F17.210 - Nicotine dependence, cigarettes, uncomplicated (5) Opioid dependence with withdrawal Current Visit: Yes Status: Acute Cleared for Admission [facility] - Detox or Rehab [facility] Level of Care: Medically Managed Detox Regimen/Protocol: Methadone Claeared for Rehab Admission: No Breathalyzer - Breathalyzer Breathalyzer: 0 Urine Drug Screen - Test Device Lot number: [id number] Expiration date: 01/11/21 - Control Is test valid?: Yes - Results Drug screen NEGATIVE: No Urine drug screen results: THC-Marijuana, FEN-Fentanyl, MOP-Opiates, OXY- Oxycodone, BZO-Benzodiazepines Inpatient Rehab Admission - Rehab Decision to Admit Inpatient rehab admission?: No
[2019-03-26] MEDS ORDERED: guaiFENesin 200 MG/10 ML 10 ML UNIT-DOSE CUPS PO PRN (21:27)
[2019-03-26] MEDS ORDERED: DICYCLOMINE HCL 10 MG CAPSULE PO PRN (21:27)
[2019-03-26] MEDS ORDERED: BISMUTH SUBSALICYLATE 524 MG/30 ML UD PO PRN (21:27)
[2019-03-26] MEDS ORDERED: MAG HYDROX/AL HYDROX/SIMETH 30 ML UNIT-DOSE CUP PO PRN (21:27)
[2019-03-26] MEDS ORDERED: MAGNESIUM CITRATE 300 ML BOTTLE PO PRN (21:27)
[2019-03-26] MEDS ORDERED: MENTHOL/PHENOL 1 EACH UD MM PRN (21:27)
[2019-03-26] MEDS ORDERED: ONDANSETRON *ODT* 4 MG TABLET SL PRN (21:27)
[2019-03-26] MEDS ORDERED: ACETAMINOPHEN 325 MG TABLET (FP) PO PRN ×2 (21:27)
[2019-03-26] MEDS ORDERED: METHOCARBAMOL 500 MG TABLET PO PRN (21:27)
[2019-03-26] MEDS ORDERED: P-EPHED 60MG/TRIPROLIDI 2.5MG TABLET PO PRN (21:27)
[2019-03-26] MEDS ORDERED: cloNIDine HCL 0.1 MG TABLET PO PRN (21:27)
[2019-03-26] MEDS ORDERED: MAGNESIUM HYDROX 2400MG/30ML ORAL SUSPENSION 30 ML CUP PO PRN (21:27)
[2019-03-26] MEDS ORDERED: METHADONE HCL 10 MG TABLET (FOR DETOX USE ONLY) PO ONE (21:27)
[2019-03-26] MEDS ORDERED: IBUPROFEN 400 MG TABLET (FP) PO PRN (21:27)
[2019-03-26] MEDS ORDERED: NALOXONE HCL 0.4 MG/ML VIAL IM PRN (21:27)
[2019-03-26] MEDS: THIAMINE HCL 100 MG TABLET (FP) PO SCH (22:53)
[2019-03-26] MEDS: clonazePAM 0.5 MG TABLET PO PRN (22:55)
[2019-03-26] MEDS: NICOTINE POLACRILEX 2 MG GUM BUC PRN (23:21)
[2019-03-27] MEDS ORDERED: METHADONE HCL 10 MG TABLET (FOR DETOX USE ONLY) ONE (08:21)
[2019-03-27] MEDS ORDERED: METHADONE HCL 5 MG TABLET (FOR DETOX USE ONLY) ONE (08:21)
[2019-03-27] MEDS ORDERED: METHADONE (DETOX) 20 MG, METHADONE (DETOX) 5 MG PO ONE (10:00)
[2019-03-27] MEDS: NICOTINE 21 MG/24 HOURS TOPICAL PATCH TD SCH (10:30)
[2019-03-27] MEDS: PRENATAL VITAMINS W/ FOLIC ACID TABLET (FP) PO SCH (10:30)
[2019-03-27] MEDS: clonazePAM 0.5 MG TABLET PO PRN ×3 (10:31→22:56)
[2019-03-27 11:29] LABS: PH,URINE 5.5 (5.0-8.0); URINE APPEARANCE TURBID; URINE BILIRUBIN NEGATIVE (NEGATIVE); URINE COLOR YELLOW; URINE GLUCOSE (UA) NEGATIVE (NEGATIVE); URINE KETONE NEGATIVE (NEGATIVE); URINE LEUK ESTERASE NEGATIVE (NEGATIVE); URINE NITRITE NEGATIVE (NEGATIVE); URINE PROTEIN NEGATIVE (NEGATIVE); URINE UROBILINOGEN 0.2 mg/dL (0.2-1.0)
--- NOTE | 2019-03-27 11:50 | PN ---
BHS COWS - Scale Resting Pulse: 0= [place] 80 or Below Sweatin= Chills/Flushing Restless Observation: 1= Difficult to Sit Still Pupil Size: 0= Normal to Room Light Bone or Joint Aches: 1= Mild Discomfort Runny Nose/ Eye Tearin= Nasal Congestion GI Upset > 30mins: 2= Nausea/Diarrhea Tremor Observation of Outstretched Hands: 2= Slight Tremor Visible Yawning Observation: 1= 1-2x During Session Anxiety or Irritability: 2=Irritable/Anxious Goose Flesh Skin: 3=Piloerection COWS Score: 14 BHS Progress Note (SOAP) Subjective: 23 years old male admitted on 03/26/19 for opiate withdrawal sx denies medical issues discuss medication assisted treatment program with patient Objective: 03/27/19 11:55 Vital Signs Temperature 97.3 F L 03/27/19 09:22 Pulse Rate 64 03/27/19 09:22 Respiratory Rate 18 03/27/19 09:22 Blood Pressure 90/51 L 03/27/19 09:22 O2 Sat by Pulse Oximetry (%) Laboratory Last Values Urine Color Yellow 03/27/19 09:00 Urine Appearance Turbid 03/27/19 09:00 Urine pH 5.5 (5.0-8.0) 03/27/19 09:00 Ur Specific [place] 1.017 (1.010-1.035) 03/27/19 09:00 Urine Protein Negative (NEGATIVE) 03/27/19 09:00 Urine Glucose (UA) Negative (NEGATIVE) 03/27/19 09:00 Urine Ketones Negative (NEGATIVE) 03/27/19 09:00 Urine Blood Negative (NEGATIVE) 03/27/19 09:00 Urine Nitrite Negative (NEGATIVE) 03/27/19 09:00 Urine Bilirubin Negative (NEGATIVE) 03/27/19 09:00 Urine Urobilinogen 0.2 mg/dL (0.2-1.0) 03/27/19 09:00 Ur Leukocyte Esterase Negative (NEGATIVE) 03/27/19 09:00 03/27/19 11:56 lab seen 02/2019 Assessment: 03/27/19 11:56 opiate withdrawal sx Plan: continue opiate detox
[2019-03-27] MEDS: NICOTINE POLACRILEX 2 MG GUM BUC PRN ×3 (13:23→17:05)
[2019-03-27] MEDS: MELATONIN 5 MG TABLETS PO PRN (22:28)
[2019-03-27] MEDS: THIAMINE HCL 100 MG TABLET (FP) PO SCH (22:28)
[2019-03-28] MEDS ORDERED: METHADONE HCL 10 MG TABLET (FOR DETOX USE ONLY) PO ONE (10:00)
[2019-03-28] MEDS: clonazePAM 0.5 MG TABLET PO PRN ×2 (10:45→20:31)
[2019-03-28] MEDS: NICOTINE 21 MG/24 HOURS TOPICAL PATCH TD SCH (10:46)
[2019-03-28] MEDS: PRENATAL VITAMINS W/ FOLIC ACID TABLET (FP) PO SCH (10:47)
--- NOTE | 2019-03-28 10:54 | PN ---
BHS COWS - Scale Resting Pulse: 0= [place] 80 or Below Sweatin= Chills/Flushing Restless Observation: 1= Difficult to Sit Still Pupil Size: 0= Normal to Room Light Bone or Joint Aches: 1= Mild Discomfort Runny Nose/ Eye Tearin= Nasal Congestion GI Upset > 30mins: 1= Stomach Cramp Tremor Observation of Outstretched Hands: 2= Slight Tremor Visible Yawning Observation: 2= >3x During Session Anxiety or Irritability: 2=Irritable/Anxious Goose Flesh Skin: 0=Smooth Skin COWS Score: 11 S Progress Note (SOAP) Subjective: doing better today with methadone detox regiemen hesitate about aftercare discuss medication assisted treatement program Objective: 03/28/19 11:10 Vital Signs Temperature 97.0 F L 03/28/19 09:06 Pulse Rate 60 03/28/19 09:06 Respiratory Rate 18 03/28/19 09:06 Blood Pressure 95/60 03/28/19 09:06 O2 Sat by Pulse Oximetry (%) Laboratory Last Values Urine Color Yellow 03/27/19 09:00 Urine Appearance Turbid 03/27/19 09:00 Urine pH 5.5 (5.0-8.0) 03/27/19 09:00 Ur Specific [place] 1.017 (1.010-1.035) 03/27/19 09:00 Urine Protein Negative (NEGATIVE) 03/27/19 09:00 Urine Glucose (UA) Negative (NEGATIVE) 03/27/19 09:00 Urine Ketones Negative (NEGATIVE) 03/27/19 09:00 Urine Blood Negative (NEGATIVE) 03/27/19 09:00 Urine Nitrite Negative (NEGATIVE) 03/27/19 09:00 Urine Bilirubin Negative (NEGATIVE) 03/27/19 09:00 Urine Urobilinogen 0.2 mg/dL (0.2-1.0) 03/27/19 09:00 Ur Leukocyte Esterase Negative (NEGATIVE) 03/27/19 09:00 lab noted see 02/2019 lab result Assessment: 03/28/19 11:11 opiate withdrawal sx Plan: continue opiate detox
[2019-03-28] MEDS: NICOTINE POLACRILEX 2 MG GUM BUC PRN ×2 (13:00→20:32)
[2019-03-28] MEDS: MELATONIN 5 MG TABLETS PO PRN (22:23)
[2019-03-28] MEDS: THIAMINE HCL 100 MG TABLET (FP) PO SCH (22:23)
[2019-03-29] MEDS ORDERED: METHADONE HCL 10 MG TABLET (FOR DETOX USE ONLY) ONE (08:27)
[2019-03-29] MEDS ORDERED: METHADONE HCL 5 MG TABLET (FOR DETOX USE ONLY) ONE (08:27)
[2019-03-29] MEDS ORDERED: METHADONE (DETOX) 10 MG, METHADONE (DETOX) 5 MG PO ONE (10:00)
[2019-03-29] MEDS: PRENATAL VITAMINS W/ FOLIC ACID TABLET (FP) PO SCH (10:33)
[2019-03-29] MEDS: NICOTINE 21 MG/24 HOURS TOPICAL PATCH TD SCH (10:33)
[2019-03-29] MEDS: clonazePAM 0.5 MG TABLET PO PRN ×2 (10:33→22:17)
--- NOTE | 2019-03-29 13:24 | PN ---
BHS COWS - Scale Resting Pulse: 0= [place] 80 or Below Sweatin= Chills/Flushing Restless Observation: 0= Sits Still Pupil Size: 1= Pupils >than Normal Bone or Joint Aches: 1= Mild Discomfort Runny Nose/ Eye Tearin= Nasal Congestion GI Upset > 30mins: 1= Stomach Cramp Tremor Observation of Outstretched Hands: 1= Tremor [place], Not Seen Yawning Observation: 1= 1-2x During Session Anxiety or Irritability: 2=Irritable/Anxious Goose Flesh Skin: 0=Smooth Skin COWS Score: 9 BHS Progress Note (SOAP) Subjective: doing better today low energy resting on bed encourage to discuss aftercare with staff that [facility] is first choice for opiate rehab discuss medication assisted treatment program for opiate misuse Objective: 03/29/19 13:26 Vital Signs Temperature 98.1 F 03/29/19 09:11 Pulse Rate 57 L 03/29/19 09:11 Respiratory Rate 18 03/29/19 09:11 Blood Pressure 108/60 03/29/19 09:11 O2 Sat by Pulse Oximetry (%) Laboratory Last Values Urine Color Yellow 03/27/19 09:00 Urine Appearance Turbid 03/27/19 09:00 Urine pH 5.5 (5.0-8.0) 03/27/19 09:00 Ur Specific [place] 1.017 (1.010-1.035) 03/27/19 09:00 Urine Protein Negative (NEGATIVE) 03/27/19 09:00 Urine Glucose (UA) Negative (NEGATIVE) 03/27/19 09:00 Urine Ketones Negative (NEGATIVE) 03/27/19 09:00 Urine Blood Negative (NEGATIVE) 03/27/19 09:00 Urine Nitrite Negative (NEGATIVE) 03/27/19 09:00 Urine Bilirubin Negative (NEGATIVE) 03/27/19 09:00 Urine Urobilinogen 0.2 mg/dL (0.2-1.0) 03/27/19 09:00 Ur Leukocyte Esterase Negative (NEGATIVE) 03/27/19 09:00 03/29/19 13:27 see lab 02/2019 Assessment: 03/29/19 13:27 opiate withdrawal sx Plan: continue opiate detox
[2019-03-29] MEDS: NICOTINE POLACRILEX 2 MG GUM BUC PRN ×3 (16:50→22:40)
[2019-03-29] MEDS: THIAMINE HCL 100 MG TABLET (FP) PO SCH (22:15)
[2019-03-30] MEDS ORDERED: METHADONE HCL 10 MG TABLET (FOR DETOX USE ONLY) PO ONE (10:00)
[2019-03-30] MEDS: clonazePAM 0.5 MG TABLET PO PRN ×2 (10:27→16:54)
[2019-03-30] MEDS: PRENATAL VITAMINS W/ FOLIC ACID TABLET (FP) PO SCH (10:27)
[2019-03-30] MEDS: NICOTINE 21 MG/24 HOURS TOPICAL PATCH TD SCH (10:27)
[2019-03-30] MEDS: NICOTINE POLACRILEX 2 MG GUM BUC PRN ×2 (10:28→13:46)
--- NOTE | 2019-03-30 16:05 | PN ---
BHS COWS - Scale Resting Pulse: 0= [place] 80 or Below Sweatin= No chills or Flushing Restless Observation: 0= Sits Still Pupil Size: 0= Normal to Room Light Bone or Joint Aches: 1= Mild Discomfort Runny Nose/ Eye Tearin= None GI Upset > 30mins: 1= Stomach Cramp Tremor Observation of Outstretched Hands: 1= Tremor [place], Not Seen Yawning Observation: 1= 1-2x During Session Anxiety or Irritability: 1=Feels Anxious/Irritable Goose Flesh Skin: 0=Smooth Skin COWS Score: 5 S Progress Note (SOAP) Subjective: feeling better today doing well with methadone detox regimen less body aches mild tremor discuss medication assisted treatment program patient [facility] Objective: 03/30/19 16:07 Vital Signs Temperature 98.6 F 03/30/19 13:14 Pulse Rate 60 03/30/19 13:14 Respiratory Rate 18 03/30/19 13:14 Blood Pressure 112/70 03/30/19 13:14 O2 Sat by Pulse Oximetry (%) Laboratory Last Values Urine Color Yellow 03/27/19 09:00 Urine Appearance Turbid 03/27/19 09:00 Urine pH 5.5 (5.0-8.0) 03/27/19 09:00 Ur Specific [place] 1.017 (1.010-1.035) 03/27/19 09:00 Urine Protein Negative (NEGATIVE) 03/27/19 09:00 Urine Glucose (UA) Negative (NEGATIVE) 03/27/19 09:00 Urine Ketones Negative (NEGATIVE) 03/27/19 09:00 Urine Blood Negative (NEGATIVE) 03/27/19 09:00 Urine Nitrite Negative (NEGATIVE) 03/27/19 09:00 Urine Bilirubin Negative (NEGATIVE) 03/27/19 09:00 Urine Urobilinogen 0.2 mg/dL (0.2-1.0) 03/27/19 09:00 Ur Leukocyte Esterase Negative (NEGATIVE) 03/27/19 09:00 03/30/19 16:07 see lab 02/2019 Assessment: 03/30/19 16:08 opiate withdrawal sx Plan: continue opiate detox
[2019-03-30] MEDS: MELATONIN 5 MG TABLETS PO PRN (22:30)
[2019-03-30] MEDS: THIAMINE HCL 100 MG TABLET (FP) PO SCH (22:30)
[2019-03-31] MEDS ORDERED: METHADONE HCL 5 MG TABLET (FOR DETOX USE ONLY) PO ONE (06:00)
[2019-03-31 09:19] VITALS: BP 113/68; PULSE 76; TEMP 98.1
--- NOTE | 2019-03-31 11:03 | DS ---
[facility] Detox Discharge Summary Admission Date: 03/26/19 Discharge Date: 03/31/19 - History Present History: Opioid Dependence Additional Comments: 23 years old male admitted on 03/26/19 for opiate withdrawal sx management treated with methadone detox regimen no complication througout the detox stay cardiac S1S2 pulmonary clear lung bilaterally adbomen soft no tenderness alert oriented x 3 aftercare [facility] - Physical Exam Results Vital Signs: Vital Signs Temperature 98.1 F 03/31/19 09:18 Pulse Rate 76 03/31/19 09:18 Respiratory Rate 18 03/31/19 09:18 Blood Pressure 113/68 03/31/19 09:18 O2 Sat by Pulse Oximetry (%) Pertinent Admission Physical Exam Findings: opiate withdrawal sx Laboratory Last Values Urine Color Yellow 03/27/19 09:00 Urine Appearance Turbid 03/27/19 09:00 Urine pH 5.5 (5.0-8.0) 03/27/19 09:00 Ur Specific [place] 1.017 (1.010-1.035) 03/27/19 09:00 Urine Protein Negative (NEGATIVE) 03/27/19 09:00 Urine Glucose (UA) Negative (NEGATIVE) 03/27/19 09:00 Urine Ketones Negative (NEGATIVE) 03/27/19 09:00 Urine Blood Negative (NEGATIVE) 03/27/19 09:00 Urine Nitrite Negative (NEGATIVE) 03/27/19 09:00 Urine Bilirubin Negative (NEGATIVE) 03/27/19 09:00 Urine Urobilinogen 0.2 mg/dL (0.2-1.0) 03/27/19 09:00 Ur Leukocyte Esterase Negative (NEGATIVE) 03/27/19 09:00 see lab 02/2019 - Treatment Hospital Course: Detox Protocol Followed, Detoxed Safely, Responded well, Discharged Condition Good, Rehab Referral Accepted Patient has Accepted a Rehab Referral to: [facility] - Medication Discharge Medications: Ambulatory Orders NK [No Known Home Medication] 02/20/19 - Diagnosis (1) Opioid dependence with withdrawal Status: Acute (2) Nicotine dependence Status: Acute Qualifiers: Nicotine product type: cigarettes Substance use status: in withdrawal Qualified Code(s): F17.213 - Nicotine dependence, cigarettes, with withdrawal - AMA Did Patient Leave Against Medical Advice: No
== END 2019-03-31 09:45 | disposition home or self-care (01) | DRG 773 ==
LOC: YASAS 17:39 → Y3N 21:46
PROVIDERS: ADMIT Surgery; ATTEND Surgery
PROC: HZ2ZZZZ Detoxification Services for Substance Abuse Treatment (ICD-10-PCS; principal; 2019-03-26)
DX: F11.23 Opioid dependence with withdrawal (principal); F12.20 Cannabis dependence, uncomplicated; F17.213 Nicotine dependence, cigarettes, with withdrawal; F19.282 Other psychoactive substance dependence with psychoactive substance-induced sleep disorder; F41.1 Generalized anxiety disorder
CPT/HCPCS: 81003